=== PATIENT | female | born 1955 | race Caucasian/White ===

== ENCOUNTER 2018-05-13 14:54 | Emergency (ER) | payer MEDICARE, MEDICAID ==
[2018-05-13] MEDS ORDERED: Sodium Chloride 0.9% 10 ML Syringe FLUSH PRN (15:09)
[2018-05-13] MEDS ORDERED: Sodium Chloride 0.9% 1,000 ML IV SCH (15:15)
[2018-05-13] MEDS ORDERED: 50% Dextrose in Water 50 ML Syringe IVPUSH ONE (16:20)
[2018-05-13] MEDS ORDERED: Linezolid 600 MG in Premix Bag 1 BAG IV ONE (17:10)
--- NOTE | 2018-05-13 17:33 | EDM.PDOC ---
ED HPI GENERAL MEDICAL PROBLEM - General Chief Complaint: Fever Stated Complaint: [facility] Time Seen by Provider: 05/13/18 15:03 Source of Information: Reports: Patient, EMS History Limitations: Reports: No Limitations - History of Present Illness INITIAL COMMENTS - FREE TEXT/NARRATIVE: The patient presents with dehydration, fever, generalized weakness and bilateral lower leg ulcers. She says she has not felt good in months. She is seeing doctors in [place]. They have recommended she be admitted to the group home to help with her ulcers and wound care. She has refused. She has gotten worse over the past week. She has not been able to eat and she has not been drinking for a few days. She has a fever or 103. She says this has been a chronic problem for 35 years. She is allergic to multiple antibiotics. She has no chest pain but she has some shortness of breath. She has nausea but no vomiting. She thinks she has a UTI. She has been unable to change her dressings for a couple days. Onset: Gradual Duration: Week(s): Location: Reports: Lower Extremity, Left, Lower Extremity, Right Quality: Reports: Sharp Severity: Moderate Improves with: Reports: None Worsens with: Reports: None Associated Symptoms: Reports: Fever/Chills, Shortness of Breath, Weakness. Denies: Chest Pain, Cough, Headaches, Nausea/Vomiting Generalized Pain Score (Numeric/FACES): 5 - Related Data Allergies Allergy/AdvReac Type Severity Reaction Status Date / Time adhesive Allergy Rash Verified 05/13/18 15:13 alginic acid Allergy Rash Verified 05/13/18 17:55 [From MediHoney (onesimo alginate-honey)] amikacin Allergy Hives Verified 05/13/18 17:55 clindamycin Allergy Rash Verified 05/13/18 15:13 daptomycin Allergy Muscle Verified 05/13/18 17:55 Weakness green pepper Allergy Diarrhea Verified 05/13/18 17:55 honey Allergy Rash Verified 05/13/18 17:55 [From MediHoney (onesimo alginate-honey)] hydroxychloroquine Allergy Other Verified 05/13/18 17:55 [From Plaquenil] lactose Allergy Diarrhea Verified 05/13/18 17:55 latex Allergy Hives Verified 05/13/18 17:55 NSAIDS (Non-Steroidal Allergy Rash Verified 05/13/18 17:55 Anti-Inflamma penicillamine Allergy Blisters Verified 05/13/18 17:55 [From Cuprimine] Penicillins Allergy Rash Verified 05/13/18 15:12 pentoxifylline [From Trental] Allergy Nausea and Verified 05/13/18 17:55 Vomiting sulfamethoxazole Allergy Nausea and Verified 05/13/18 17:55 [From Septra] Vomiting trimethoprim [From Septra] Allergy Nausea and Verified 05/13/18 17:55 Vomiting vancomycin Allergy Rash Verified 05/13/18 15:13 warfarin [From Coumadin] Allergy Itching Verified 05/13/18 17:55 Home Meds: Home Meds Albuterol Sulfate [Proventil Hfa] 2 puff IH DAILY PRN 05/13/18 [History] Cholecalciferol (Vitamin D3) [Vitamin D3] 2,000 unit PO DAILY 05/13/18 [History] Cyanocobalamin (Vitamin B-12) [Vitamin B-12] 15 ml PO DAILY 05/13/18 [History] Folic Acid 80 mg PO DAILY 05/13/18 [History] Hydrocodone/Acetaminophen [Hydrocodon-Acetaminophn 10-325] 1 tab PO Q4H PRN [History] Lactase [Dairy Relief] 27,000 unit PO TID PRN 05/13/18 [History] Loratadine [Claritin] 10 mg PO DAILY 05/13/18 [History] Lutein 20 mg PO DAILY 05/13/18 [History] Magnesium Oxide 400 mg PO DAILY 05/13/18 [History] Methenamine Hippurate 1 gm PO BID 05/13/18 [History] Methenamine Hippurate [Hiprex] 1 gm PO BID 05/13/18 [History] Methotrexate 8 tab PO ASDIRECTED 05/13/18 [History] Nystatin 1 each TOP DAILY 05/13/18 [History] Omeprazole Magnesium [Prilosec Otc] 20 mg PO DAILY 05/13/18 [History] Oxybutynin Chloride 5 mg PO DAILY 05/13/18 [History] Potassium Chloride 20 meq PO BID 05/13/18 [History] Pramipexole [Mirapex] 0.25 mg PO BEDTIME 05/13/18 [History] Prochlorperazine [Compazine] 5 mg PO QID PRN 05/13/18 [History] Teriparatide [Forteo] 20 mcg SUBCUT DAILY 05/13/18 [History] Triamcinolone Acetonide [Kenalog] 1 gm TP TID PRN 05/13/18 [History] traZODone HCl [Trazodone HCl] 50 mg PO BEDTIME 05/13/18 [History] Past Medical History HEENT History: Reports: Other (See Below) Other HEENT History: wears glasses Cardiovascular History: Reports: Hypertension Genitourinary History: Reports: Renal Disease Endocrine/Metabolic History: Reports: Diabetes, Type II Social & Family History - Tobacco Use Smoking Status *Q: Never Smoker - Recreational Drug Use Recreational Drug Use: No ED ROS GENERAL - Review of Systems Review Of Systems: See Below Constitutional: Reports: Fever, Chills, Malaise, Weakness, Fatigue HEENT: Reports: No Symptoms Respiratory: Reports: Shortness of Breath Cardiovascular: Reports: No Symptoms Endocrine: Reports: No Symptoms GI/Abdominal: Reports: Nausea. Denies: Abdominal Pain, Vomiting : Reports: No Symptoms Musculoskeletal: Reports: No Symptoms ED EXAM, SEPSIS - Physical Exam Exam: See Below Exam Limited By: No Limitations General Appearance: Alert, No Apparent Distress Ears: Normal External Exam Nose: Normal Inspection Head: Atraumatic, Normocephalic Neck: Normal Inspection Respiratory/Chest: No Respiratory Distress, Lungs Clear, Normal Breath Sounds Cardiovascular: Regular Rate, Rhythm, No Edema, No Murmur GI/Abdominal Exam: Soft, Non-Tender, No Organomegaly, No Mass Extremities: Other (Severe high grade ulcers to both inner ankles. Good sensation and weak pulses distally) Neurological: Alert, Oriented, No Motor/Sensory Deficits Course - Vital Signs Last Recorded V/S: Last Vital Signs Temp 99.1 F 05/13/18 14:56 Pulse 99 05/13/18 14:56 Resp 16 05/13/18 14:56 BP 90/59 L 05/13/18 14:56 Pulse Ox 98 05/13/18 15:10 - Orders/Labs/Meds Orders: Active Orders 24 hr Category Date Time Status Cardiac Monitoring [RC] . DIRECTED Care 05/13/18 15:10 Active EKG Documentation Completion [RC] STAT Care 05/13/18 15:14 Active Beltran Catheter Insertion [Insert Urinary Catheter] [OM. Care 05/13/18 17:45 Ordered PC] Q24H Implanted Port Access [RC] STAT Care 05/13/18 15:45 Active Oxygen Therapy [RC] PRN Care 05/13/18 15:10 Active Peripheral IV Care [RC] . DIRECTED Care 05/13/18 15:10 Active Urinary Catheter Assessment [RC] ASDIRECTED Care 05/13/18 17:42 Active Chest 1V Frontal [CR] Stat Exams 05/13/18 15:15 Taken CULTURE BLOOD [BC] Stat Lab 05/13/18 15:15 Received CULTURE BLOOD [BC] Stat Lab 05/13/18 15:25 Received CULTURE URINE [RM] Stat Lab 05/13/18 17:07 Received INR,PT,PROTHROMBIN TIME [COAG] Stat Lab 05/13/18 18:20 Received LACTIC ACID [CHEM] Stat Lab 05/13/18 18:00 Received PTT,PARTIAL THROMBOPLSTIN TIME [COAG] Stat Lab 05/13/18 18:20 Received UA W/MICROSCOPIC [URIN] Stat Lab 05/13/18 17:07 Ordered Levofloxacin/Dextrose 5%-Water [Levaquin in D5W 500 MG/ Med 05/13/18 18:01 Active 100 ML] 500 mg Premix Bag 1 bag IV ONETIME Sodium Chloride 0.9% [Normal Saline] 1,000 ml Med 05/13/18 15:15 Active IV .BOLUS Sodium Chloride 0.9% [Saline Flush] Med 05/13/18 15:09 Active 10 ml FLUSH ASDIRECTED PRN Blood Culture x2 Reflex Set [OM.PC] Stat Oth 05/13/18 15:15 Ordered Peripheral IV Insertion Adult [OM.PC] Stat Oth 05/13/18 15:09 Ordered Medication Orders Sodium Chloride (Normal Saline) 1,000 mls @ 1,000 mls/hr IV .BOLUS CARLO Last Admin: 05/13/18 15:31 Dose: 1,000 mls/hr Levofloxacin/Dextrose 500 mg/ (Premix) 100 mls @ 100 mls/hr IV ONETIME ONE Stop: 05/13/18 19:00 Sodium Chloride (Saline Flush) 10 ml FLUSH ASDIRECTED PRN PRN Reason: Keep Vein Open Last Admin: 05/13/18 15:31 Dose: 10 ml Labs: Laboratory Tests 05/13/18 05/13/18 05/13/18 Range/Units 14:59 15:15 15:30 WBC 19.37 H (3.98-10.04) K/mm3 RBC 3.02 L (3.98-5.22) M/mm3 Hgb 8.7 L (11.2-15.7) gm/L Hct 27.1 L (34.1-44.9) % MCV 89.7 (79.4-94.8) fl MCH 28.8 (25.6-32.2) pg MCHC 32.1 L (32.2-35.5) g/dl RDW Std Deviation 52.5 H (36.4-46.3) fL Plt Count 274 (182-369) K/mm3 MPV 11.0 (9.4-12.3) fl Neut % (Auto) 81.2 H (34.0-71.1) % Lymph % (Auto) 13.5 L (19.3-51.7) % [place] % (Auto) 4.8 (4.7-12.5) % Eos % (Auto) 0.1 L (0.7-5.8) Baso % (Auto) 0.1 (0.1-1.2) % Neut # (Auto) 15.73 H (1.56-6.13) K/mm3 Lymph # (Auto) 2.62 (1.18-3.74) K/mm3 [place] # (Auto) 0.93 H (0.24-0.36) K/mm3 Eos # (Auto) 0.01 L (0.04-0.36) K/mm3 Baso # (Auto) 0.02 (0.01-0.08) K/mm3 Sodium 137 (136-145) mEq/L Potassium 3.8 (3.5-5.1) mEq/L Chloride 106 (98-107) mEq/L Carbon Dioxide 21 (21-32) mEq/L Anion Gap 13.8 (5-15) BUN 15 (7-18) mg/dL Creatinine 1.4 H (0.55-1.02) mg/dL Est Cr Clr Drug Dosing 37.01 mL/min Estimated GFR (MDRD) 38 (>60) mL/min BUN/Creatinine Ratio 10.7 L (14-18) Glucose 72 L (80-115) mg/dL POC Glucose 73 L (80-115) mg/dL Calcium 7.6 L (8.5-10.1) mg/dL Magnesium 1.5 L (1.8-2.4) mg/dl Total Bilirubin 4.1 H (0.2-1.0) mg/dL AST 157 H (15-37) U/L ALT 46 (14-59) U/L Alkaline Phosphatase 189 H (46-116) U/L Troponin I < 0.017 (0.00-0.056) ng/mL NT-Pro-B Natriuret Pep (0-125) pg/mL Total Protein 5.1 L (6.4-8.2) g/dl Albumin 1.3 L (3.4-5.0) g/dl Globulin 3.8 gm/dL Albumin/Globulin Ratio 0.3 L (1-2) Urine Color (Yellow) Urine Appearance (Clear) Urine pH (5.0-8.0) Ur Specific Stella (1.005-1.030) Urine Protein (Negative) Urine Glucose (UA) (Negative) Urine Ketones (Negative) Urine Occult Blood (Negative) Urine Nitrite (Negative) Urine Bilirubin (Negative) Urine Urobilinogen (0.2-1.0) Ur Leukocyte Esterase (Negative) Urine RBC (0-5) /hpf Urine WBC (0-5) /hpf Ur Epithelial Cells (0-5) /hpf Urine Bacteria (FEW) /hpf Urine Mucus (FEW) /hpf 05/13/18 05/13/18 Range/Units 15:30 17:07 WBC (3.98-10.04) K/mm3 RBC (3.98-5.22) M/mm3 Hgb (11.2-15.7) gm/L Hct (34.1-44.9) % MCV (79.4-94.8) fl MCH (25.6-32.2) pg MCHC (32.2-35.5) g/dl RDW Std Deviation (36.4-46.3) fL Plt Count (182-369) K/mm3 MPV (9.4-12.3) fl Neut % (Auto) (34.0-71.1) % Lymph % (Auto) (19.3-51.7) % [place] % (Auto) (4.7-12.5) % Eos % (Auto) (0.7-5.8) Baso % (Auto) (0.1-1.2) % Neut # (Auto) (1.56-6.13) K/mm3 Lymph # (Auto) (1.18-3.74) K/mm3 [place] # (Auto) (0.24-0.36) K/mm3 Eos # (Auto) (0.04-0.36) K/mm3 Baso # (Auto) (0.01-0.08) K/mm3 Sodium (136-145) mEq/L Potassium (3.5-5.1) mEq/L Chloride (98-107) mEq/L Carbon Dioxide (21-32) mEq/L Anion Gap (5-15) BUN (7-18) mg/dL Creatinine (0.55-1.02) mg/dL Est Cr Clr Drug Dosing mL/min Estimated GFR (MDRD) (>60) mL/min BUN/Creatinine Ratio (14-18) Glucose (80-115) mg/dL POC Glucose (80-115) mg/dL Calcium (8.5-10.1) mg/dL Magnesium (1.8-2.4) mg/dl Total Bilirubin (0.2-1.0) mg/dL AST (15-37) U/L ALT (14-59) U/L Alkaline Phosphatase (46-116) U/L Troponin I (0.00-0.056) ng/mL NT-Pro-B Natriuret Pep 1264 H (0-125) pg/mL Total Protein (6.4-8.2) g/dl Albumin (3.4-5.0) g/dl Globulin gm/dL Albumin/Globulin Ratio (1-2) Urine Color [place] H (Yellow) Urine Appearance Clear (Clear) Urine pH 6.0 (5.0-8.0) Ur Specific Stella 1.020 (1.005-1.030) Urine Protein 1+ H (Negative) Urine Glucose (UA) Negative (Negative) Urine Ketones Negative (Negative) Urine Occult Blood 1+ H (Negative) Urine Nitrite Negative (Negative) Urine Bilirubin 1+ H (Negative) Urine Urobilinogen 1.0 (0.2-1.0) Ur Leukocyte Esterase 1+ H (Negative) Urine RBC 5-10 H (0-5) /hpf Urine WBC 40-50 H (0-5) /hpf Ur Epithelial Cells 0-5 (0-5) /hpf Urine Bacteria Many H (FEW) /hpf Urine Mucus Not seen (FEW) /hpf Meds: Medications Generic Name Dose Route Start Last Admin Trade Name Freyonatan PRN Reason Stop Dose Admin Sodium Chloride 1,000 mls @ 1,000 mls/hr 05/13/18 15:15 05/13/18 15:31 Normal Saline IV 1,000 mls/hr .BOLUS CARLO Administration Levofloxacin/Dextrose 500 mg/ 100 mls @ 100 mls/hr 05/13/18 18:01 Premix IV 05/13/18 19:00 ONETIME ONE Sodium Chloride 10 ml 05/13/18 15:09 05/13/18 15:31 Saline Flush FLUSH 10 ml ASDIRECTED PRN Administration Keep Vein Open Discontinued Medications Generic Name Dose Route Start Last Admin Trade Name Freq PRN Reason Stop Dose Admin Dextrose/Water 50 ml 05/13/18 16:20 Dextrose 50% In Water IVPUSH 05/13/18 16:21 ONETIME ONE Linezolid 600 mg/ Premix 300 mls @ 300 mls/hr 05/13/18 17:10 05/13/18 18:06 IV 05/13/18 18:09 300 mls/hr ONETIME ONE Administration - Re-Assessments/Exams Free Text/Narrative Re-Assessment/Exam: 05/13/18 17:35 I ordered an IV NS 30ml/kg bolus, labs, CXR, blood cultures, UA and urine cultures. 05/13/18 17:37 Her CXR looks good. Her WBC was elevated at 19.37. Her Hgb was low at 8.7. Platelets were normal at 274. Her potassium and sodium were normal. Her glucose was low at 72. I did give her some D50. Her calcium was low at 7.6. Her magnesium was low at 1.5. Her total bili was elevated at 4.1 with an elevated AST at 157 and elevated alk phos at 189. Her troponin was negative. Her BNP was elevated at 1264. Her UA shows a UTI. I have urine cultures and blood cultures. She have sever ulcers in both inner ankles. I ordered zyvox 600mg IV. She does not think she is allergic to that antibiotic. We did request records from [facility] but they have not arrived yet. I feel the patient needs to be admitted to [facility] in [place]. She will need multi specialty care. 05/13/18 18:[address] Baig and he accepted the patient. Departure - Departure Time of Disposition: 18:30 Disposition: DC/Tfer to Acute Hospital 02 Condition: Poor Clinical Impression: Hypocalcemia, Hypomagnesemia, Renal insufficiency Sepsis Qualifiers: Sepsis type: sepsis due to unspecified organism Qualified Code(s): A41.9 - Sepsis, unspecified organism Ulcers of both lower extremities Qualifiers: Non-pressure ulcer stage: unspecified non-pressure ulcer stage Qualified Code(s ): L97.919 - Non-pressure chronic ulcer of unspecified part of right lower leg with unspecified severity UTI (urinary tract infection) Qualifiers: Urinary tract infection type: site unspecified Hematuria presence: without hematuria Qualified Code(s): N39.0 - Urinary tract infection, site not specified Anemia Qualifiers: Anemia type: other cause Other causes of anemia: other cause, not classified Qualified Code(s): D64.89 - Other specified anemias Decubital ulcer Qualifiers: Pressure injury location: buttock Pressure injury stage: unspecified pressure injury stage Laterality: unspecified laterality Qualified Code(s): L89.309 - Pressure ulcer of unspecified buttock, unspecified stage - Discharge Information Referrals: Shabnam Ji MD [Primary Care Provider] - Forms: ED Department Discharge - My Orders Last 24 Hours: My Active Orders 05/13/18 15:09 Sodium Chloride 0.9% [Saline Flush] 10 ml FLUSH ASDIRECTED PRN Peripheral IV Insertion Adult [OM.PC] Stat 05/13/18 15:10 Cardiac Monitoring [RC] . DIRECTED Oxygen Therapy [RC] PRN Peripheral IV Care [RC] . DIRECTED 05/13/18 15:14 EKG Documentation Completion [RC] STAT 05/13/18 15:15 Chest 1V Frontal [CR] Stat CULTURE BLOOD [BC] Stat Sodium Chloride 0.9% [Normal Saline] 1,000 ml IV .BOLUS Blood Culture x2 Reflex Set [OM.PC] Stat 05/13/18 15:25 CULTURE BLOOD [BC] Stat 05/13/18 15:45 Implanted Port Access [RC] STAT 05/13/18 17:07 CULTURE URINE [RM] Stat UA W/MICROSCOPIC [URIN] Stat 05/13/18 17:42 Urinary Catheter Assessment [RC] ASDIRECTED 05/13/18 17:45 Beltran Catheter Insertion [Insert Urinary Catheter] [OM.PC] Q24H 05/13/18 18:00 LACTIC ACID [CHEM] Stat 05/13/18 18:01 Levofloxacin/Dextrose 5%-Water [Levaquin in D5W 500 MG/100 ML] 500 mg Premix Bag 1 bag IV ONETIME 05/13/18 18:20 INR,PT,PROTHROMBIN TIME [COAG] Stat PTT,PARTIAL THROMBOPLSTIN TIME [COAG] Stat - Assessment/Plan Last 24 Hours: My Active Orders 05/13/18 15:09 Sodium Chloride 0.9% [Saline Flush] 10 ml FLUSH ASDIRECTED PRN Peripheral IV Insertion Adult [OM.PC] Stat 05/13/18 15:10 Cardiac Monitoring [RC] . DIRECTED Oxygen Therapy [RC] PRN Peripheral IV Care [RC] . DIRECTED 05/13/18 15:14 EKG Documentation Completion [RC] STAT 05/13/18 15:15 Chest 1V Frontal [CR] Stat CULTURE BLOOD [BC] Stat Sodium Chloride 0.9% [Normal Saline] 1,000 ml IV .BOLUS Blood Culture x2 Reflex Set [OM.PC] Stat 05/13/18 15:25 CULTURE BLOOD [BC] Stat 05/13/18 15:45 Implanted Port Access [RC] STAT 05/13/18 17:07 CULTURE URINE [RM] Stat UA W/MICROSCOPIC [URIN] Stat 05/13/18 17:42 Urinary Catheter Assessment [RC] ASDIRECTED 05/13/18 17:45 Beltran Catheter Insertion [Insert Urinary Catheter] [OM.PC] Q24H 05/13/18 18:00 LACTIC ACID [CHEM] Stat 05/13/18 18:01 Levofloxacin/Dextrose 5%-Water [Levaquin in D5W 500 MG/100 ML] 500 mg Premix Bag 1 bag IV ONETIME 05/13/18 18:20 INR,PT,PROTHROMBIN TIME [COAG] Stat PTT,PARTIAL THROMBOPLSTIN TIME [COAG] Stat
[2018-05-13] MEDS ORDERED: Levofloxacin/Dextrose 5%-Water 500 MG in Premix Bag 1 BAG IV ONE (18:01)
--- NOTE | 2018-05-15 08:35 | CR ---
Chest: Portable view of the chest was obtained. Comparison: No prior chest x-ray. Heart size and mediastinum are normal. Azygos lobe is incidentally noted. Lungs are clear without acute parenchymal change. Left-sided infusion port is seen. Chronic rotator cuff tears are noted within both shoulders. Impression: 1. Incidental findings. Nothing acute is appreciated on portable chest x-ray. Diagnostic code #2
== END 2018-05-13 19:20 ==
LOC: JD.ED 14:54
DX: A41.9 Sepsis, unspecified organism (principal); L97.919 Non-pressure chronic ulcer of unspecified part of right lower leg with unspecified severity; L97.929 Non-pressure chronic ulcer of unspecified part of left lower leg with unspecified severity; E11.622 Type 2 diabetes mellitus with other skin ulcer; N39.0 Urinary tract infection, site not specified; L89.309 Pressure ulcer of unspecified buttock, unspecified stage; D64.89 Other specified anemias; E83.51 Hypocalcemia; E83.42 Hypomagnesemia; N28.9 Disorder of kidney and ureter, unspecified; I10 Essential (primary) hypertension; Z79.899 Other long term (current) drug therapy; Z91.09 Other allergy status, other than to drugs and biological substances; Z88.0 Allergy status to penicillin; Z88.1 Allergy status to other antibiotic agents; Z91.040 Latex allergy status; Z88.2 Allergy status to sulfonamides; Z88.8 Allergy status to other drugs, medicaments and biological substances
CPT/HCPCS: 36415; 51702; 71045; 80053; 81001; 82962; 83605; 83735; 83880; 84484; 85025; 85610; 85730; 87040; 87086; 93005; 96360; 96361; 96365; 96375; 99285; J1956; J2020; J7040; J7050; 87088; 87186

== ENCOUNTER 2018-09-17 17:04 | Emergency (ER) | payer MEDICARE, MEDICAID ==
[2018-09-17] MEDS ORDERED: Acetaminophen/oxyCODONE 325-5 MG Tab PO ONE (20:11)
[2018-09-17] MEDS ORDERED: Levofloxacin/Dextrose 5%-Water 500 MG in Premix Bag 1 BAG IV ONE (20:21)
--- NOTE | 2018-09-18 03:25 | ER ---
REASON FOR EMERGENCY ROOM VISIT: Progressive weakness and chronic venous stasis ulcers bilaterally. HISTORY OF PRESENT ILLNESS: This 63-year-old woman was brought here by ambulance from [place], [place]. She states that she has been struggling with dressing changes and wound cares to the chronic venous stasis ulcers that she has involving both lower legs. She states that she has been getting more and more weak in recent days. She has had a history of problems off and on with venous stasis ulcers that she states goes back as far as 35 years. Most recently, last summer, she was hospitalized in [place] for 12 days for sepsis and control of localized infection related to the venous stasis ulcers. She was seen by Infectious Disease and wound cares were instituted, but she did require parenteral antibiotics at that time. After a 12-day stay at which time she was seen, she was evaluated by Infectious Disease as well as Surgery. She was transferred to a snf for continued cares and wound management until early July. Subsequent to that, she was discharged home and she states she has been seen by a visiting nurse at her home in [place], [place]. She does live alone. She also has a history of decubitus ulcers. The patient denies any cough, shortness of breath, chest pain, nausea, vomiting, diarrhea, or constipation. PAST MEDICAL HISTORY: Significant for a gastric bypass in 2001 and rheumatoid arthritis. Other past medical history was reviewed. Please see electronic medical record. SOCIAL HISTORY: She is a nonsmoker. Denies any drug use or alcohol use. She lives alone in [place], [place]. PHYSICAL EXAMINATION: GENERAL: She is pale appearing, but she is alert and in no acute distress. VITAL SIGNS: Her blood pressure is 92/64, pulse is 73, respiratory rate is 18, O2 sats 96% on room air. HEENT: She is pale as mentioned above. No conjunctivitis is noted. No scleral icterus is noted. CHEST: Clear to auscultation. CARDIAC: Regular rate, without murmur. ABDOMEN: Soft and nontender. EXTREMITIES: She has extensive venous stasis ulcerations about both ankles on the right side. She is ulcerated all the way from just above the heel to approximately 15 or 20 cm above the medial malleolus. This involves almost the entire medial aspect of the ankle. She also has a 4 x 3 cm ulcer laterally posterior to the lateral malleolus. On the left ankle, almost the entire medial aspect again is involved with granulating venous stasis ulcers. She has a smaller 2 x 3 cm ulcer anterior to this one. The dressings that she had in place were very bulky and poorly applied and were very foul smelling. I suspect she has significant localized infection involving these and probably some early cellulitis. There is some increased redness, but I do not know if this is chronic and whether or not cellulitis is present at this time clinically. I cannot feel ankle ulcers because of the chronic edema. She does have popliteal pulses. On examination of her perineum, she has some very shallow early decubitus ulcers in a radial fashion approximately 4 to 6 inches away from the anus in a circular arrangement. She is at high risk for breakdown of these areas further. LABORATORY DATA: Her WBCs are elevated at 14,800. She has a hemoglobin of 8.7 (unchanged from March). Her creatinine is 1.1. Her CRP is 2.6. IMPRESSION: Possible early sepsis and nonhealing poorly managed venous stasis ulcers as described above. PLAN: She needs to have these wounds cleaned up and I think she possibly has some early sepsis ongoing. Would benefit at least from initiation of IV antibiotics. Blood cultures were obtained and she was started on 1 dose of levofloxacin. I did contact the patient's primary care provider in [place], Dr. Shabnam Ji, who is a [facility] physician. I therefore spoke with the hospitalist, Dr. Beaulieu. We discussed the patient. He agreed to take her in transfer. Hopefully, after a few days, she can be placed in a facility such as [facility], which will enable long-term care hospitalization. It is obvious to me that she is not managing adequately at home under these circumstances. This was discussed with the patient. She understands and agrees with this plan. MMODAL /[id number]
== END 2018-09-17 21:42 ==
LOC: JD.ED 17:04
DX: I83.023 Varicose veins of left lower extremity with ulcer of ankle (principal)
CPT/HCPCS: 36415; 80053; 85007; 85027; 86140; 87040; 96365; 99284; A9270; J1956

== ENCOUNTER 2019-12-06 12:21 | Inpatient (IN) | payer OTHER, MEDICARE, MEDICAID ==
[2019-12-06] MEDS ORDERED: Sodium Chloride 0.9% 10 ML Syringe FLUSH PRN (12:50)
[2019-12-06] MEDS ORDERED: HYDROmorphone 0.5 MG/0.5 ML Syringe IVPUSH ONE ×2 (12:52→16:29)
[2019-12-06] MEDS: Sodium Chloride 0.9% 1,000 ML IV SCH ×2 (13:46→20:50)
--- NOTE | 2019-12-06 14:28 | EDM.PDOC ---
ED HPI GENERAL MEDICAL PROBLEM - General Chief Complaint: Back Pain or Injury Stated Complaint: [facility] Time Seen by Provider: 12/06/19 12:31 Source of Information: Reports: Patient History Limitations: Reports: No Limitations - History of Present Illness INITIAL COMMENTS - FREE TEXT/NARRATIVE: Patient is a 64-year-old female brought in by [facility] with complaints of right sided back pain that began last night. Pain is to her right mid and upper back. She was seen at [place] today. Advised to go to the chiropractor, however she went home to take a nap. Upon waking she was unable to get out of bed. Patient states she "threw her back out ". She has some pain and numbness in her right arm as well. Patient does have chronic severe rheumatoid arthritis and gets around with a wheelchair. She took the bus to [place] yesterday in the wheelchair and she feels that sitting for the extended period of time in the wheelchair it is what is caused her back pain. She is incontinent of urine and self caths for urinary retention. Patient has chronic stasis ulcers to the medial aspect of both ankles. She states that she had [facility] services up until last month, however she now lives alone and does not have any services. She manages her stasis ulcers herself at home. She denies any fever, chills, nausea, vomiting, or diarrhea. Right Lower Back Pain Score (Numeric/FACES): 9 - Related Data Allergies Allergy/AdvReac Type Severity Reaction Status Date / Time adhesive Allergy Rash Verified 12/06/19 12:33 alginic acid Allergy Rash Verified 12/06/19 12:33 [From MediHoney (onesimo alginate-honey)] amikacin Allergy Hives Verified 12/06/19 12:33 clindamycin Allergy Rash Verified 12/06/19 12:33 daptomycin Allergy Muscle Verified 12/06/19 12:33 Weakness green pepper Allergy Diarrhea Verified 12/06/19 12:33 honey Allergy Rash Verified 12/06/19 12:33 [From MediHoney (onesimo alginate-honey)] hydroxychloroquine Allergy Other Verified 12/06/19 12:33 [From Plaquenil] lactose Allergy Diarrhea Verified 12/06/19 12:33 latex Allergy Hives Verified 12/06/19 12:33 NSAIDS (Non-Steroidal Allergy Rash Verified 12/06/19 12:33 Anti-Inflamma penicillamine Allergy Blisters Verified 12/06/19 12:33 [From Cuprimine] Penicillins Allergy Rash Verified 12/06/19 12:33 pentoxifylline [From Trental] Allergy Nausea and Verified 12/06/19 12:33 Vomiting sulfamethoxazole Allergy Nausea and Verified 12/06/19 12:33 [From Septra] Vomiting trimethoprim [From Septra] Allergy Nausea and Verified 12/06/19 12:33 Vomiting vancomycin Allergy Rash Verified 12/06/19 12:33 warfarin [From Coumadin] Allergy Itching Verified 12/06/19 12:33 Home Meds: Home Meds Cholecalciferol (Vitamin D3) [Vitamin D3] 2,000 unit PO DAILY 05/13/18 [History] Lutein 40 mg PO DAILY 05/13/18 [History] Methenamine Hippurate [Hiprex] 1 gm PO BID 05/13/18 [History] traZODone HCl [Trazodone HCl] 50 mg PO BEDTIME 05/13/18 [History] Acetaminophen [Tylenol] 650 mg PO Q4HR 12/06/19 [History] Alfuzosin HCl [Alfuzosin HCl ER] 10 mg PO DAILY 12/06/19 [History] Ascorbic Acid 500 mg PO BID 12/06/19 [History] Calcium Carbonate 500 mg PO Q4HR PRN 12/06/19 [History] Calcium Carbonate/Vitamin D3 [Calcium Carbonate/Vitamin D 600 MG-200 Unit] 1 tab PO BID 12/06/19 [History] Cetirizine [ZyrTEC] 10 mg PO DAILY 12/06/19 [History] Cholestyramine/Sucrose [Cholestyramine] 4 g PO DAILY 12/06/19 [History] Clobetasol Propionate [Temovate 0.05% Oint] 1 applic TOP BID PRN 12/06/19 [ History] Cranberry Fruit Concentrate [Cranberry] 450 mg PO BID 12/06/19 [History] Diclofenac/Hyaluronate/Niacin [Diclofen 3%-Hyaluron 2%-Niac4%] 2 gm TOP BID PRN 12/06/19 [History] Ferrous Sulfate 325 mg PO DAILY 12/06/19 [History] Folic Acid 1 mg PO DAILY 12/06/19 [History] Hydrocortisone [Hydrocortisone 1% Crm] 1 applic TOP TID PRN 12/06/19 [History] Lidocaine 5% [Lidoderm 5%] 1 patch TOP DAILY 12/06/19 [History] Loperamide [Imodium AD] 2 mg PO DAILY PRN 12/06/19 [History] Lycopene 10 mg PO DAILY 12/06/19 [History] Magnesium Oxide 400 mg PO BID 12/06/19 [History] Methotrexate Sodium [Methotrexate] 17.5 mg PO ASDIRECTED 12/06/19 [History] Multivitamin [Multivitamins] 1 tab PO DAILY 12/06/19 [History] Non-Formulary Medication [NF Drug] 2 scoop PO DAILY 12/06/19 [History] Nystatin [Nystatin Crm] 1 applic TOP BID PRN 12/06/19 [History] Nystatin [Nystop] 1 applic TOP BID PRN 12/06/19 [History] Ondansetron [Zofran ODT] 1 tab PO Q6HR PRN 12/06/19 [History] Pantoprazole Sodium [Protonix] 40 mg PO DAILY 12/06/19 [History] Sodium Hypochlorite [Anasept] 1 inch TOP DAILY 12/06/19 [History] Zoledronic Acid in Water [Reclast] 5 mg .ROUTE ASDIRECTED 12/06/19 [History] diphenhydrAMINE [Benadryl] 25 mg PO Q4HR PRN 12/06/19 [History] hydrOXYzine HCL [Hydroxyzine HCl] 10 mg PO TID 12/06/19 [History] oxyCODONE 5 mg PO QID 12/06/19 [History] predniSONE [Prednisone] 6 mg PO DAILY 12/06/19 [History] rOPINIRole [Requip] 0.5 mg PO BEDTIME 12/06/19 [History] Past Medical History HEENT History: Reports: Other (See Below) Other HEENT History: wears glasses Cardiovascular History: Reports: Hypertension Genitourinary History: Reports: Renal Disease Endocrine/Metabolic History: Reports: Diabetes, Type II Social & Family History - Tobacco Use Smoking Status *Q: Never Smoker - Caffeine Use Caffeine Use: Reports: None - Recreational Drug Use Recreational Drug Use: No ED ROS GENERAL - Review of Systems Review Of Systems: Comprehensive ROS is negative, except as noted in HPI. ED EXAM, UPPER BACK/NECK PAIN - Physical Exam Exam: See Below Exam Limited By: No Limitations General Appearance: Alert, WD/WN, Mild Distress Cardiovascular/Respiratory: Regular Rate, Rhythm, No M/R/G, Normal Peripheral Pulses, No JVD, Normal Breath Sounds, No Respiratory Distress GI/Abdominal: Normal Bowel Sounds, Soft, Non-Tender, No Organomegaly, No Distention, No Abnormal Bruit, No Mass Back Exam: Other (Tenderness to the C8-T2 vertebrae as well as the right paraspinous muscles. Tenderness to T8-T11 tenderness to the paraspinous muscles to the right lateral aspect of T8-T11. There is noted muscle spasm in this region.) Extremities: Other (Pain and limited range of motion to the right arm. Pain is worse from the elbow to the hand. There is a 15.3 x 9.8 cm stasis ulcer to the right medial ankle, 5.5 cm x 2.8 cm to the right lateral ankle, and a 13 cm x 10.3 cm to the left medial ankle. Area surrounding the stasis ulcers is red and inflamed. Discharge from the ulcers is foul-smelling.) Neurologic: vocational education teacher II-XII nml As Tested, No Motor/Sensory Deficits, Alert, Normal Mood/Affect, Oriented x 3 Skin Exam: Warm/Dry Course - Vital Signs Last Recorded V/S: Last Vital Signs Temp 99.1 F 12/06/19 17:37 Pulse 106 H 12/06/19 17:37 Resp 19 12/06/19 17:37 BP 132/64 12/06/19 17:37 Pulse Ox 93 L 12/06/19 17:37 - Orders/Labs/Meds Orders: Active Orders 24 hr Category Date Time Status CULTURE ANAEROBIC + SMEAR [RM] Stat Lab 12/06/19 16:47 Ordered CULTURE BLOOD [BC] Stat Lab 12/06/19 13:23 Received CULTURE BLOOD [BC] Stat Lab 12/06/19 13:40 Received Sodium Chloride 0.9% [Normal Saline] 1,000 ml Med 12/06/19 13:00 Active IV ASDIRECTED Sodium Chloride 0.9% [Saline Flush] Med 12/06/19 12:50 Active 10 ml FLUSH ASDIRECTED PRN Blood Culture x2 Reflex Set [OM.PC] Stat Oth 12/06/19 12:50 Ordered Peripheral IV Insertion Adult [OM.PC] Stat Oth 12/06/19 12:50 Ordered Medication Orders Acetaminophen (Tylenol) 650 mg PO Q4H PRN PRN Reason: Pain (Mild 1-3)/fever Ascorbic Acid (Vitamin C) 500 mg PO BID [facility] Calcium Carbonate (Calcium Carbonate/Vitamin D 600 Mg-200 Unit) 1 tab PO BID [facility] Cholestyramine Resin (Cholestyramine Packet) 4 gm PO DAILY [facility] Diphenhydramine HCl (Benadryl) 25 mg PO Q4HR PRN PRN Reason: Other Enoxaparin Sodium (Lovenox) 40 mg SUBCUT DAILY [facility] Ferrous Sulfate (Ferrous Sulfate) 324 mg PO DAILY [facility] Folic Acid (Folic Acid) 1 mg PO DAILY [facility] Hydromorphone HCl (Dilaudid) 0.5 mg IVPUSH Q2H PRN PRN Reason: Pain (severe 7-10) Hydroxyzine HCl (Atarax) 10 mg PO TID [facility] Sodium Chloride (Normal Saline) 1,000 mls @ 150 mls/hr IV ASDIRECTED [facility] Last Admin: 12/06/19 13:46 Dose: 150 mls/hr Loperamide HCl (Imodium) 2 mg PO DAILY PRN PRN Reason: Diarrhea Nystatin (Nystatin Crm) gm TOP BID PRN PRN Reason: Itching Nystatin (Nystop) gm TOP BID PRN PRN Reason: Itching Ondansetron HCl (Zofran Odt) 4 mg PO Q6HR PRN PRN Reason: Nausea/Vomiting Oxycodone HCl (Oxycodone) 5 mg PO QID PRN PRN Reason: Pain Pantoprazole Sodium (Protonix) 40 mg PO ACBREAKFAST [facility] Prednisone (Prednisone) 20 mg PO WITHBREAKFAST [facility] Ropinirole HCl (Requip) 0.5 mg PO BEDTIME [facility] Sodium Chloride (Saline Flush) 10 ml FLUSH ASDIRECTED PRN PRN Reason: Keep Vein Open Last Admin: 12/06/19 13:53 Dose: 10 ml Trazodone HCl (Trazodone) 50 mg PO BEDTIME [facility] Labs: Laboratory Tests 12/06/19 12/06/19 12/06/19 Range/Units 13:23 13:23 13:23 WBC 9.16 (3.98-10.04) K/mm3 RBC 3.77 L (3.98-5.22) M/mm3 Hgb 11.5 D (11.2-15.7) gm/dl Hct 37.0 (34.1-44.9) % MCV 98.1 H D (79.4-94.8) fl MCH 30.5 (25.6-32.2) pg MCHC 31.1 L (32.2-35.5) g/dl RDW Std Deviation 64.2 H (36.4-46.3) fL Plt Count 360 (182-369) K/mm3 MPV 8.8 L (9.4-12.3) fl Neut % (Auto) 74.5 H (34.0-71.1) % Lymph % (Auto) 15.6 L (19.3-51.7) % [place] % (Auto) 8.2 (4.7-12.5) % Eos % (Auto) 1.2 (0.7-5.8) Baso % (Auto) 0.2 (0.1-1.2) % Neut # (Auto) 6.82 H (1.56-6.13) K/mm3 Lymph # (Auto) 1.43 (1.18-3.74) K/mm3 [place] # (Auto) 0.75 H (0.24-0.36) K/mm3 Eos # (Auto) 0.11 (0.04-0.36) K/mm3 Baso # (Auto) 0.02 (0.01-0.08) K/mm3 Sodium 144 (136-145) mEq/L Potassium 4.4 (3.5-5.1) mEq/L Chloride 110 H (98-107) mEq/L Carbon Dioxide 21 (21-32) mEq/L Anion Gap 17.4 H (5-15) BUN 24 H (7-18) mg/dL Creatinine 1.1 H (0.55-1.02) mg/dL Est Cr Clr Drug Dosing 46.49 mL/min Estimated GFR (MDRD) 50 (>60) mL/min BUN/Creatinine Ratio 21.8 H (14-18) Glucose 89 (80-115) mg/dL Lactic Acid 0.9 (0.4-2.0) mmol/L Calcium 7.9 L (8.5-10.1) mg/dL Total Bilirubin 1.0 (0.2-1.0) mg/dL AST 18 (15-37) U/L ALT 17 (14-59) U/L Alkaline Phosphatase 79 (46-116) U/L C-Reactive Protein 5.1 H* (<1.0) mg/dL Total Protein 6.8 (6.4-8.2) g/dl Albumin 2.3 L (3.4-5.0) g/dl Globulin 4.5 gm/dL Albumin/Globulin Ratio 0.5 L (1-2) Urine Color (Yellow) Urine Appearance (Clear) Urine pH (5.0-8.0) Ur Specific [place] (1.005-1.030) Urine Protein (Negative) Urine Glucose (UA) (Negative) Urine Ketones (Negative) Urine Occult Blood (Negative) Urine Nitrite (Negative) Urine Bilirubin (Negative) Urine Urobilinogen (0.2-1.0) Ur Leukocyte Esterase (Negative) Urine RBC (0-5) /hpf Urine WBC (0-5) /hpf Ur Squamous Epith Cells (0-5) /hpf Urine Bacteria (FEW) /hpf Urine Mucus (FEW) /hpf 12/05/ Range/Units 15:44 WBC (3.98-10.04) K/mm3 RBC (3.98-5.22) M/mm3 Hgb (11.2-15.7) gm/dl Hct (34.1-44.9) % MCV (79.4-94.8) fl MCH (25.6-32.2) pg MCHC (32.2-35.5) g/dl RDW Std Deviation (36.4-46.3) fL Plt Count (182-369) K/mm3 MPV (9.4-12.3) fl Neut % (Auto) (34.0-71.1) % Lymph % (Auto) (19.3-51.7) % [place] % (Auto) (4.7-12.5) % Eos % (Auto) (0.7-5.8) Baso % (Auto) (0.1-1.2) % Neut # (Auto) (1.56-6.13) K/mm3 Lymph # (Auto) (1.18-3.74) K/mm3 [place] # (Auto) (0.24-0.36) K/mm3 Eos # (Auto) (0.04-0.36) K/mm3 Baso # (Auto) (0.01-0.08) K/mm3 Sodium (136-145) mEq/L Potassium (3.5-5.1) mEq/L Chloride (98-107) mEq/L Carbon Dioxide (21-32) mEq/L Anion Gap (5-15) BUN (7-18) mg/dL Creatinine (0.55-1.02) mg/dL Est Cr Clr Drug Dosing mL/min Estimated GFR (MDRD) (>60) mL/min BUN/Creatinine Ratio (14-18) Glucose (80-115) mg/dL Lactic Acid (0.4-2.0) mmol/L Calcium (8.5-10.1) mg/dL Total Bilirubin (0.2-1.0) mg/dL AST (15-37) U/L ALT (14-59) U/L Alkaline Phosphatase (46-116) U/L C-Reactive Protein (<1.0) mg/dL Total Protein (6.4-8.2) g/dl Albumin (3.4-5.0) g/dl Globulin gm/dL Albumin/Globulin Ratio (1-2) Urine Color Yellow (Yellow) Urine Appearance Slt cloudy H (Clear) Urine pH 6.0 (5.0-8.0) Ur Specific [place] 1.025 (1.005-1.030) Urine Protein Trace H (Negative) Urine Glucose (UA) Negative (Negative) Urine Ketones Negative (Negative) Urine Occult Blood Trace-intact H (Negative) Urine Nitrite Positive H (Negative) Urine Bilirubin Negative (Negative) Urine Urobilinogen 0.2 (0.2-1.0) Ur Leukocyte Esterase 1+ H (Negative) Urine RBC 5-10 H (0-5) /hpf Urine WBC 50-75 H (0-5) /hpf Ur Squamous Epith Cells 0-5 (0-5) /hpf Urine Bacteria Many H (FEW) /hpf Urine Mucus Not seen (FEW) /hpf Meds: Medications Generic Name Dose Route Start Last Admin Trade Name Freq PRN Reason Stop Dose Admin Acetaminophen 650 mg 12/06/19 18:42 Tylenol PO Q4H PRN Pain (Mild 1-3)/fever Ascorbic Acid 500 mg 12/06/19 21:00 Vitamin C PO BID CARLO Calcium Carbonate 1 tab 03/19/20 21:00 Calcium Carbonate/Vitamin D 600 Mg-200 Unit PO BID [facility] Cholestyramine Resin 4 gm 12/07/19 09:00 Cholestyramine Packet PO DAILY [facility] Diphenhydramine HCl 25 mg 12/06/19 18:35 Benadryl PO Q4HR PRN Other Enoxaparin Sodium 40 mg 12/07/19 09:00 Lovenox SUBCUT DAILY [facility] Ferrous Sulfate 324 mg 12/07/19 09:00 Ferrous Sulfate PO DAILY [facility] Folic Acid 1 mg 12/07/19 09:00 Folic Acid PO DAILY [facility] Hydromorphone HCl 0.5 mg 12/06/19 18:42 Dilaudid IVPUSH Q2H PRN Pain (severe 7-10) Hydroxyzine HCl 10 mg 12/06/19 21:00 Atarax PO TID [facility] Sodium Chloride 1,000 mls @ 150 mls/hr 12/06/19 13:00 12/06/19 13:46 Normal Saline IV 150 mls/hr ASDIRECTED [facility] Administration Loperamide HCl 2 mg 12/06/19 18:56 Imodium PO DAILY PRN Diarrhea Nystatin gm 12/06/19 18:35 Nystatin Crm TOP BID PRN Itching Nystatin gm 12/06/19 18:35 Nystop TOP BID PRN Itching Ondansetron HCl 4 mg 12/06/19 18:35 Zofran Odt PO Q6HR PRN Nausea/Vomiting Oxycodone HCl 5 mg 12/06/19 18:35 Oxycodone PO QID PRN Pain Pantoprazole Sodium 40 mg 12/07/19 06:00 Protonix PO ACBREAKFAST [facility] Prednisone 20 mg 12/07/19 07:00 Prednisone PO WITHBREAKFAST [facility] Ropinirole HCl 0.5 mg 12/06/19 21:00 Requip PO BEDTIME [facility] Sodium Chloride 10 ml 12/06/19 12:50 12/06/19 13:53 Saline Flush FLUSH 10 ml ASDIRECTED PRN Administration Keep Vein Open Trazodone HCl 50 mg 12/06/19 21:00 Trazodone PO BEDTIME [facility] Discontinued Medications Generic Name Dose Route Start Last Admin Trade Name Freq PRN Reason Stop Dose Admin Hydromorphone HCl 0.5 mg 12/06/19 12:52 12/06/19 13:46 Dilaudid IVPUSH 12/06/19 12:53 0.5 mg ONETIME ONE Administration Hydromorphone HCl 0.5 mg 12/06/19 16:29 12/06/19 16:43 Dilaudid IVPUSH 12/06/19 16:30 0.5 mg ONETIME ONE Administration Ceftriaxone Sodium 1 gm/ 100 mls @ 200 mls/hr 12/06/19 16:28 12/06/19 16:43 Sodium Chloride IV 12/06/19 16:57 200 mls/hr ONETIME ONE Administration Prednisone 40 mg 12/06/19 18:47 Prednisone PO 12/06/19 18:48 ONETIME ONE - Re-Assessments/Exams Free Text/Narrative Re-Assessment/Exam: On exam, patient has marked tenderness to C8-T2, as well as the right lateral paraspinous muscles. This is likely the cause of her pain and numbness down her right arm due to nerve root impingement. She also has significant para spinal tenderness with spasms to the muscles to the right lateral aspect of T8- T11. Patient has a strong smell of urine. Nursing staff verbalized that she was soaked in urine on arrival to the ER. She had towels tucked around her which were also soaked in urine. Patient has stasis ulcers to the bilateral medial aspects of her ankle as well as the right lateral ankle. She verbalized that she changes the dressing on these, however the dressing had a very foul smell and does not appear that it has been changed recently. There is some redness noted surrounding the ulcers. I have ordered a CBC, CMP, blood cultures , lactic acid, urinalysis, NS at 150, and Dilaudid 0.5 mg for pain. 12/06/19 1630 Hematology showed an anion gap mildly elevated at 17.4, BUN 24, creatinine 1.1, CRP elevated at 5.1. WBCs and lactic acid were found to be normal. Urinalysis was positive for nitrates, 1+ leukocyte esterase, 5-10 RBCs, 50-75 WBCs, and many bacteria. Patient does continue to run a low-grade fever around 100.1. I discussed the case, with social services Barbara. She visited with the patient who is in agreement to go to [facility]. Based on her presentation today, I do not feel that it is safe for her to be taking care of herself at home at this time. Have discussed the case with Dr. Ford. He will admit the patient for IV antibiotics for urinary tract infection as well as stasis ulcers. Patient verbalizes increased back pain at this time. I have order another Dilaudid 0.5 mg. I will also start her on Rocephin 1 g IV. Departure - Departure Time of Disposition: 16:30 Disposition: Admitted As Inpatient 66 Clinical Impression: UTI (urinary tract infection) Qualifiers: Urinary tract infection type: site unspecified Hematuria presence: without hematuria Qualified Code(s): N39.0 - Urinary tract infection, site not specified Ulcers of both lower extremities Qualifiers: Non-pressure ulcer stage: unspecified non-pressure ulcer stage Qualified Code(s ): L97.919 - Non-pressure chronic ulcer of unspecified part of right lower leg with unspecified severity - Discharge Information *PRESCRIPTION DRUG MONITORING PROGRAM REVIEWED*: No *COPY OF PRESCRIPTION DRUG MONITORING REPORT IN PATIENT KARLA: No Sepsis Event Note - Evaluation Sepsis Screening Result: No Definite Risk - Focused Exam Vital Signs: Vital Signs Temp Pulse Resp BP Pulse Ox 12/06/19 12:31 100.6 F 101 H 16 145/105 H 97 Date Exam was Performed: 12/06/19 Time Exam was Performed: 19:32 - My Orders Last 24 Hours: My Active Orders 12/06/19 12:50 Sodium Chloride 0.9% [Saline Flush] 10 ml FLUSH ASDIRECTED PRN Blood Culture x2 Reflex Set [OM.PC] Stat Peripheral IV Insertion Adult [OM.PC] Stat 12/06/19 13:00 Sodium Chloride 0.9% [Normal Saline] 1,000 ml IV ASDIRECTED 12/06/19 13:23 CULTURE BLOOD [BC] Stat 12/06/19 13:40 CULTURE BLOOD [BC] Stat 12/06/19 16:47 CULTURE ANAEROBIC + SMEAR [RM] Stat - Assessment/Plan Last 24 Hours: My Active Orders 12/06/19 12:50 Sodium Chloride 0.9% [Saline Flush] 10 ml FLUSH ASDIRECTED PRN Blood Culture x2 Reflex Set [OM.PC] Stat Peripheral IV Insertion Adult [OM.PC] Stat 12/06/19 13:00 Sodium Chloride 0.9% [Normal Saline] 1,000 ml IV ASDIRECTED 12/06/19 13:23 CULTURE BLOOD [BC] Stat 12/06/19 13:40 CULTURE BLOOD [BC] Stat 12/06/19 16:47 CULTURE ANAEROBIC + SMEAR [RM] Stat
[2019-12-06] MEDS ORDERED: cefTRIAXone 1 GM in Sodium Chloride 0.9% 100 ML IV ONE (16:28)
[2019-12-06] MEDS ORDERED: Nystatin Crm 30 GM Tube TOP PRN (18:35)
[2019-12-06] MEDS ORDERED: diphenhydrAMINE 25 MG Cap PO PRN (18:35)
[2019-12-06] MEDS ORDERED: Ondansetron 4 MG Tab.DIS PO PRN (18:35)
[2019-12-06] MEDS ORDERED: HYDROmorphone 0.5 MG/0.5 ML Syringe IVPUSH PRN (18:42)
[2019-12-06] MEDS ORDERED: predniSONE 20 MG Tab PO ONE ×2 (18:47→21:15)
--- NOTE | 2019-12-06 18:49 | PCM.HP.2 ---
H&P History of Present Illness - General Date of Service: 12/06/19 Admit Problem/Dx: Admission Diagnosis/Problem Admission Diagnosis/Problem Urinary tract infection - History of Present Illness Initial Comments - Free Text/Narative: 64-year-old female with history of rheumatoid arthritis and chronic lower extremity ulcers presented to the emergency room after developing right-sided low back pain and right hand numbness. Patient was riding a bus to and from [place] on Tuesday when she went to see her plastic surgeon. Patient states that she then developed right arm and hand numbness and right-sided low back pain. She did go to urgent care center yesterday, but no treatment was rendered. This morning when she woke up she was unable to get out of bed because of back pain. Patient now has difficulty raising her right arm or closing her right hand secondary to pain. Patient also has chronic bilateral lower extremity ulcers for the last 8 years. They have developed a foul smell and weep. They were noted in the emergency room. Apparently patient spent 2 months at [facility] in [place], [place] in 2019. She then went to [facility] for care of these lesions. She states that she has had some type of skin lesion for over 35 years. In the emergency room patient was found to have nitrite positive UTI. She self caths for the last 6 months secondary to urinary retention. She had a low- grade fever of 100.6 and because of her weakness, pain, and UTI it was felt that she would benefit from hospitalization and possible transition to a fdc facility. She was given Rocephin in the emergency room. Right Lower Back Pain Score (Numeric/FACES): 9 - Related Data Allergies/Adverse Reactions: Allergies Allergy/AdvReac Type Severity Reaction Status Date / Time adhesive Allergy Rash Verified 12/06/19 12:33 alginic acid Allergy Rash Verified 12/06/19 12:33 [From addwishney (onesimo alginate-honey)] amikacin Allergy Hives Verified 12/06/19 12:33 clindamycin Allergy Rash Verified 12/06/19 12:33 daptomycin Allergy Muscle Verified 12/06/19 12:33 Weakness green pepper Allergy Diarrhea Verified 12/06/19 12:33 honey Allergy Rash Verified 12/06/19 12:33 [From addwishney (onesimo alginate-honey)] hydroxychloroquine Allergy Other Verified 12/06/19 12:33 [From Plaquenil] lactose Allergy Diarrhea Verified 12/06/19 12:33 latex Allergy Hives Verified 12/06/19 12:33 NSAIDS (Non-Steroidal Allergy Rash Verified 12/06/19 12:33 Anti-Inflamma penicillamine Allergy Blisters Verified 12/06/19 12:33 [From Cuprimine] Penicillins Allergy Rash Verified 12/06/19 12:33 pentoxifylline [From Trental] Allergy Nausea and Verified 12/06/19 12:33 Vomiting sulfamethoxazole Allergy Nausea and Verified 12/06/19 12:33 [From Septra] Vomiting trimethoprim [From Septra] Allergy Nausea and Verified 12/06/19 12:33 Vomiting vancomycin Allergy Rash Verified 12/06/19 12:33 warfarin [From Coumadin] Allergy Itching Verified 12/06/19 12:33 Home Medications: Home Meds Cholecalciferol (Vitamin D3) [Vitamin D3] 2,000 unit PO DAILY 05/13/18 [History] Lutein 40 mg PO DAILY 05/13/18 [History] Methenamine Hippurate [Hiprex] 1 gm PO BID 05/13/18 [History] traZODone HCl [Trazodone HCl] 50 mg PO BEDTIME 05/13/18 [History] Acetaminophen [Tylenol] 650 mg PO Q4HR 12/06/19 [History] Alfuzosin HCl [Alfuzosin HCl ER] 10 mg PO DAILY 12/06/19 [History] Ascorbic Acid 500 mg PO BID 12/06/19 [History] Calcium Carbonate 500 mg PO Q4HR PRN 12/06/19 [History] Calcium Carbonate/Vitamin D3 [Calcium Carbonate/Vitamin D 600 MG-200 Unit] 1 tab PO BID 12/06/19 [History] Cetirizine [ZyrTEC] 10 mg PO DAILY 12/06/19 [History] Cholestyramine/Sucrose [Cholestyramine] 4 g PO DAILY 12/06/19 [History] Clobetasol Propionate [Temovate 0.05% Oint] 1 applic TOP BID PRN 12/06/19 [ History] Cranberry Fruit Concentrate [Cranberry] 450 mg PO BID 12/06/19 [History] Diclofenac/Hyaluronate/Niacin [Diclofen 3%-Hyaluron 2%-Niac4%] 2 gm TOP BID PRN 12/06/19 [History] Ferrous Sulfate 325 mg PO DAILY 12/06/19 [History] Folic Acid 1 mg PO DAILY 12/06/19 [History] Hydrocortisone [Hydrocortisone 1% Crm] 1 applic TOP TID PRN 12/06/19 [History] Lidocaine 5% [Lidoderm 5%] 1 patch TOP DAILY 12/06/19 [History] Loperamide [Imodium AD] 2 mg PO DAILY PRN 12/06/19 [History] Lycopene 10 mg PO DAILY 12/06/19 [History] Magnesium Oxide 400 mg PO BID 12/06/19 [History] Methotrexate Sodium [Methotrexate] 17.5 mg PO ASDIRECTED 12/06/19 [History] Multivitamin [Multivitamins] 1 tab PO DAILY 12/06/19 [History] Non-Formulary Medication [NF Drug] 2 scoop PO DAILY 12/06/19 [History] Nystatin [Nystatin Crm] 1 applic TOP BID PRN 12/06/19 [History] Nystatin [Nystop] 1 applic TOP BID PRN 12/06/19 [History] Ondansetron [Zofran ODT] 1 tab PO Q6HR PRN 12/06/19 [History] Pantoprazole Sodium [Protonix] 40 mg PO DAILY 12/06/19 [History] Sodium Hypochlorite [Anasept] 1 inch TOP DAILY 12/06/19 [History] Zoledronic Acid in Water [Reclast] 5 mg .ROUTE ASDIRECTED 12/06/19 [History] diphenhydrAMINE [Benadryl] 25 mg PO Q4HR PRN 12/06/19 [History] hydrOXYzine HCL [Hydroxyzine HCl] 10 mg PO TID 12/06/19 [History] oxyCODONE 5 mg PO QID 12/06/19 [History] predniSONE [Prednisone] 6 mg PO DAILY 12/06/19 [History] rOPINIRole [Requip] 0.5 mg PO BEDTIME 12/06/19 [History] Past Medical History HEENT History: Reports: Other (See Below) Other HEENT History: wears glasses Cardiovascular History: Reports: Hypertension Other Cardiovascular History: pt states no hx of HTN Gastrointestinal History: Reports: GERD Genitourinary History: Reports: Renal Disease Musculoskeletal History: Reports: RA, Other (See Below) Other Musculoskeletal History: broke both of knees, broke four ribs, 3 hip replacements, broke pelvic bone, broke left hand, broke collar bone, bunyonectomy bilateral feet Endocrine/Metabolic History: Reports: Diabetes, Type II Hematologic History: Reports: Folic Acid Dermatologic History: Reports: Other (See Below) Other Dermatologic History: ulcers to bilateral legs - Infectious Disease History Infectious Disease History: Reports: Chicken Pox, Measles, MRSA, Other (See Below) Other Infectious Disease History: pt states hx of mrsa in feet in 1985 and 2014 - Past Surgical History GI Surgical History: Reports: None Social & Family History - Family History Family Medical History: Noncontributory - Tobacco Use Smoking Status *Q: Never Smoker Used Tobacco, but Quit: Yes Month/Year Tobacco Last Used: 2009 - Caffeine Use Caffeine Use: Reports: None - Recreational Drug Use Recreational Drug Use: No H&P Review of Systems - Review of Systems: Review Of Systems: Comprehensive ROS is negative, except as noted in HPI. Exam - Exam Exam: See Below - Vital Signs Vital Signs: Last Vital Signs Temp 99.1 F 12/06/19 17:37 Pulse 106 H 12/06/19 17:37 Resp 19 12/06/19 17:37 BP 132/64 12/06/19 17:37 Pulse Ox 93 L 12/06/19 17:37 Weight: 195 lb - Exam Quality Assessment: No: Supplemental Oxygen General: Alert, Oriented, 4 HEENT: Conjunctiva Clear, Hearing Intact, Mucosa Moist & [place], Normal Nasal Septum Neck: Supple, Trachea Midline, 2 Lungs: Clear to Auscultation, Normal Respiratory Effort Cardiovascular: Regular Rate, Regular Rhythm, Normal S1, Normal S2 GI/Abdominal Exam: Normal Bowel Sounds, Soft, Non-Tender, No Organomegaly, No Distention, No Abnormal Bruit, No Mass Extremities: Normal Capillary Refill, Pedal Edema Peripheral Pulses: 0: Posterior Tibial (L), Posterior Tibial (R), 1+: Dorsalis Pedis (L), Dorsalis Pedis (R) Skin: Other (2 large ulcerated lesions on the right calf with necrotic center and yellowish discharge. 1 large ulcerated lesion with necrotic green-black lesion in the center also with yellowish discharge and foul-smelling.) Neurological: Cranial Nerves Intact Neuro Extensive - Mental Status: Alert, Oriented x3, Normal Mood/Affect, Normal Cognition, Memory Intact Neuro Extensive - Motor, Sensory, Reflexes: Other (Unable to spudder on right hand secondary to pain. Unable to lift right arm also secondary to pain. Left hand with decreased spudder strength.) - Patient Data Lab Results Last 24 hrs: Laboratory Results - last 24 hr 12/06/19 12/06/19 12/06/19 Range/Units 13:23 13:23 13:23 WBC 9.16 (3.98-10.04) K/mm3 RBC 3.77 L (3.98-5.22) M/mm3 Hgb 11.5 D (11.2-15.7) gm/dl Hct 37.0 (34.1-44.9) % MCV 98.1 H D (79.4-94.8) fl MCH 30.5 (25.6-32.2) pg MCHC 31.1 L (32.2-35.5) g/dl RDW Std Deviation 64.2 H (36.4-46.3) fL Plt Count 360 (182-369) K/mm3 MPV 8.8 L (9.4-12.3) fl Neut % (Auto) 74.5 H (34.0-71.1) % Lymph % (Auto) 15.6 L (19.3-51.7) % [place] % (Auto) 8.2 (4.7-12.5) % Eos % (Auto) 1.2 (0.7-5.8) Baso % (Auto) 0.2 (0.1-1.2) % Neut # (Auto) 6.82 H (1.56-6.13) K/mm3 Lymph # (Auto) 1.43 (1.18-3.74) K/mm3 [place] # (Auto) 0.75 H (0.24-0.36) K/mm3 Eos # (Auto) 0.11 (0.04-0.36) K/mm3 Baso # (Auto) 0.02 (0.01-0.08) K/mm3 Sodium 144 (136-145) mEq/L Potassium 4.4 (3.5-5.1) mEq/L Chloride 110 H (98-107) mEq/L Carbon Dioxide 21 (21-32) mEq/L Anion Gap 17.4 H (5-15) BUN 24 H (7-18) mg/dL Creatinine 1.1 H (0.55-1.02) mg/dL Est Cr Clr Drug Dosing 46.49 mL/min Estimated GFR (MDRD) 50 (>60) mL/min BUN/Creatinine Ratio 21.8 H (14-18) Glucose 89 (80-115) mg/dL Lactic Acid 0.9 (0.4-2.0) mmol/L Calcium 7.9 L (8.5-10.1) mg/dL Total Bilirubin 1.0 (0.2-1.0) mg/dL AST 18 (15-37) U/L ALT 17 (14-59) U/L Alkaline Phosphatase 79 (46-116) U/L C-Reactive Protein 5.1 H* (<1.0) mg/dL Total Protein 6.8 (6.4-8.2) g/dl Albumin 2.3 L (3.4-5.0) g/dl Globulin 4.5 gm/dL Albumin/Globulin Ratio 0.5 L (1-2) Urine Color (Yellow) Urine Appearance (Clear) Urine pH (5.0-8.0) Ur Specific [place] (1.005-1.030) Urine Protein (Negative) Urine Glucose (UA) (Negative) Urine Ketones (Negative) Urine Occult Blood (Negative) Urine Nitrite (Negative) Urine Bilirubin (Negative) Urine Urobilinogen (0.2-1.0) Ur Leukocyte Esterase (Negative) Urine RBC (0-5) /hpf Urine WBC (0-5) /hpf Ur Squamous Epith Cells (0-5) /hpf Urine Bacteria (FEW) /hpf Urine Mucus (FEW) /hpf //20 Range/Units 15:44 WBC (3.98-10.04) K/mm3 RBC (3.98-5.22) M/mm3 Hgb (11.2-15.7) gm/dl Hct (34.1-44.9) % MCV (79.4-94.8) fl MCH (25.6-32.2) pg MCHC (32.2-35.5) g/dl RDW Std Deviation (36.4-46.3) fL Plt Count (182-369) K/mm3 MPV (9.4-12.3) fl Neut % (Auto) (34.0-71.1) % Lymph % (Auto) (19.3-51.7) % [place] % (Auto) (4.7-12.5) % Eos % (Auto) (0.7-5.8) Baso % (Auto) (0.1-1.2) % Neut # (Auto) (1.56-6.13) K/mm3 Lymph # (Auto) (1.18-3.74) K/mm3 [place] # (Auto) (0.24-0.36) K/mm3 Eos # (Auto) (0.04-0.36) K/mm3 Baso # (Auto) (0.01-0.08) K/mm3 Sodium (136-145) mEq/L Potassium (3.5-5.1) mEq/L Chloride (98-107) mEq/L Carbon Dioxide (21-32) mEq/L Anion Gap (5-15) BUN (7-18) mg/dL Creatinine (0.55-1.02) mg/dL Est Cr Clr Drug Dosing mL/min Estimated GFR (MDRD) (>60) mL/min BUN/Creatinine Ratio (14-18) Glucose (80-115) mg/dL Lactic Acid (0.4-2.0) mmol/L Calcium (8.5-10.1) mg/dL Total Bilirubin (0.2-1.0) mg/dL AST (15-37) U/L ALT (14-59) U/L Alkaline Phosphatase (46-116) U/L C-Reactive Protein (<1.0) mg/dL Total Protein (6.4-8.2) g/dl Albumin (3.4-5.0) g/dl Globulin gm/dL Albumin/Globulin Ratio (1-2) Urine Color Yellow (Yellow) Urine Appearance Slt cloudy H (Clear) Urine pH 6.0 (5.0-8.0) Ur Specific [place] 1.025 (1.005-1.030) Urine Protein Trace H (Negative) Urine Glucose (UA) Negative (Negative) Urine Ketones Negative (Negative) Urine Occult Blood Trace-intact H (Negative) Urine Nitrite Positive H (Negative) Urine Bilirubin Negative (Negative) Urine Urobilinogen 0.2 (0.2-1.0) Ur Leukocyte Esterase 1+ H (Negative) Urine RBC 5-10 H (0-5) /hpf Urine WBC 50-75 H (0-5) /hpf Ur Squamous Epith Cells 0-5 (0-5) /hpf Urine Bacteria Many H (FEW) /hpf Urine Mucus Not seen (FEW) /hpf Result Diagrams: 12/06/19 13:23 12/06/19 13:23 Sepsis Event Note - Evaluation Sepsis Screening Result: No Definite Risk - Focused Exam Vital Signs: Vital Signs Temp Temp Pulse Pulse Resp BP BP 12/06/19 17:37 99.1 F 106 H 19 132/64 12/06/19 12:31 100.6 F 101 H 16 145/105 H Pulse Ox 12/06/19 17:37 93 L 12/06/19 12:31 97 Date Exam was Performed: 12/06/19 Time Exam was Performed: 20:48 Problem List Initiated/Reviewed/Updated: Yes Orders Last 24hrs: Active Orders 24 hr Category Date Time Status Admission Status [Patient Status] [ADT] Routine ADT 12/06/19 16:53 Active Oxygen Therapy [RC] PRN Care 12/06/19 18:42 Active Up With Assistance [RC] ASDIRECTED Care 12/06/19 18:42 Active VTE/DVT Education [RC] PER UNIT ROUTINE Care 12/06/19 18:42 Active Vital Signs [RC] Q4HR Care 12/06/19 18:42 Active Consult to Case Management/Environmental Resource Specialist [CONS] Cons 12/06/19 18:46 Active Routine OT Evaluation and Treatment [CONS] Routine Cons 12/06/19 18:46 Active PT Evaluation and Treatment [CONS] Routine Cons 12/06/19 18:46 Active Regular Diet [DIET] Diet 12/07/19 Breakfast Active C-REACTIVE PROTEIN [CHEM] AM Lab 12/07/19 05:11 Ordered C-REACTIVE PROTEIN [CHEM] AM Lab 12/08/19 05:11 Ordered CBC WITH AUTO DIFF [HEME] AM Lab 12/07/19 05:11 Ordered CBC WITH AUTO DIFF [HEME] AM Lab 12/08/19 05:11 Ordered COMPREHENSIVE METABOLIC PN,CMP [CHEM] AM Lab 12/07/19 05:11 Ordered COMPREHENSIVE METABOLIC PN,CMP [CHEM] AM Lab 12/08/19 05:11 Ordered CULTURE ANAEROBIC + SMEAR [RM] Stat Lab 12/06/19 16:47 Ordered CULTURE BLOOD [BC] Stat Lab 12/06/19 13:23 Received CULTURE BLOOD [BC] Stat Lab 12/06/19 13:40 Received MAGNESIUM [CHEM] AM Lab 12/07/19 05:11 Ordered MAGNESIUM [CHEM] AM Lab 12/08/19 05:11 Ordered Acetaminophen [Tylenol] Med 12/06/19 18:42 Ordered 650 mg PO Q4H PRN Ascorbic Acid [Vitamin C] Med 12/06/19 21:00 Ordered 500 mg PO BID Calcium Carbonate/Vitamin D3 [Calcium Carbonate/Vitamin Med 12/06/19 21:00 Ordered D 600 MG-200 Unit] 1 tab PO BID Cholestyramine/Sucrose [Cholestyramine Packet] Med 12/07/19 09:00 Ordered 4 gm PO DAILY Enoxaparin [Lovenox] Med 12/07/19 09:00 Ordered 40 mg SUBCUT DAILY Ferrous Sulfate Med 12/07/19 09:00 Ordered 325 mg PO DAILY Folic Acid Med 12/07/19 09:00 Ordered 1 mg PO DAILY HYDROmorphone [Dilaudid] Med 12/06/19 18:42 Ordered 0.5 mg IVPUSH Q2H PRN Loperamide Med 12/06/19 18:35 Ordered 2 mg PO DAILY PRN Nystatin [Nystatin Crm] Med 12/06/19 18:35 Ordered DOSE gm TOP BID PRN Nystatin [Nystop] Med 12/06/19 18:35 Ordered DOSE gm TOP BID PRN Ondansetron [Zofran ODT] Med 12/06/19 18:35 Active 4 mg PO Q6HR PRN Pantoprazole [ProTONIX] Med 12/07/19 06:00 Active 40 mg PO ACBREAKFAST Sodium Chloride 0.9% [Normal Saline] 1,000 ml Med 12/06/19 13:00 Active IV ASDIRECTED Sodium Chloride 0.9% [Saline Flush] Med 12/06/19 12:50 Active 10 ml FLUSH ASDIRECTED PRN diphenhydrAMINE [Benadryl] Med 12/06/19 18:35 Ordered 25 mg PO Q4HR PRN hydrOXYzine HCL [Atarax] Med 12/06/19 21:00 Ordered 10 mg PO TID oxyCODONE Med 12/06/19 18:35 Active 5 mg PO QID PRN predniSONE Med 12/07/19 07:00 Ordered 20 mg PO WITHBREAKFAST predniSONE Med 12/06/19 18:47 Once 40 mg PO ONETIME ONE rOPINIRole Med 12/06/19 21:00 Ordered 0.5 mg PO BEDTIME traZODone Med 12/06/19 21:00 Active 50 mg PO BEDTIME Blood Culture x2 Reflex Set [OM.PC] Stat Oth 12/06/19 12:50 Ordered Peripheral IV Insertion Adult [OM.PC] Stat Oth 12/06/19 12:50 Ordered Resuscitation Status Routine Resus Stat 12/06/19 18:42 Ordered Medication Orders Acetaminophen (Tylenol) 650 mg PO Q4H PRN PRN Reason: Pain (Mild 1-3)/fever Ascorbic Acid (Vitamin C) 500 mg PO BID [facility] Calcium Carbonate (Calcium Carbonate/Vitamin D 600 Mg-200 Unit) 1 tab PO BID [facility] Cholestyramine Resin (Cholestyramine Packet) 4 gm PO DAILY [facility] Diphenhydramine HCl (Benadryl) 25 mg PO Q4HR PRN PRN Reason: Other Enoxaparin Sodium (Lovenox) 40 mg SUBCUT DAILY [facility] Folic Acid (Folic Acid) 1 mg PO DAILY [facility] Hydromorphone HCl (Dilaudid) 0.5 mg IVPUSH Q2H PRN PRN Reason: Pain (severe 7-10) Hydroxyzine HCl (Atarax) 10 mg PO TID [facility] Sodium Chloride (Normal Saline) 1,000 mls @ 150 mls/hr IV ASDIRECTED [facility] Last Admin: 12/06/19 13:46 Dose: 150 mls/hr Non-Formulary Medication (Ferrous Sulfate) 325 mg PO DAILY [facility] Non-Formulary Medication (Loperamide) 2 mg PO DAILY PRN PRN Reason: Diarrhea Non-Formulary Medication (Ropinirole) 0.5 mg PO BEDTIME [facility] Nystatin (Nystatin Crm) gm TOP BID PRN PRN Reason: Itching Nystatin (Nystop) gm TOP BID PRN PRN Reason: Itching Ondansetron HCl (Zofran Odt) 4 mg PO Q6HR PRN PRN Reason: Nausea/Vomiting Oxycodone HCl (Oxycodone) 5 mg PO QID PRN PRN Reason: Pain Pantoprazole Sodium (Protonix) 40 mg PO ACBREAKFAST [facility] Sodium Chloride (Saline Flush) 10 ml FLUSH ASDIRECTED PRN PRN Reason: Keep Vein Open Last Admin: 12/06/19 13:53 Dose: 10 ml Trazodone HCl (Trazodone) 50 mg PO BEDTIME [facility] Assessment/Plan Comment:: Assessment 64-year-old female with rheumatoid arthritis and chronic lower extremity ulcers with acute flare of rheumatoid arthritis * Patient is developed significant pain and weakness secondary to a flare * Lower extremity ulcers with thickened necrotic centers * Patient reportedly recently seen by plastic surgery, but report not available * C-reactive protein of 5.1 Complicated UTI * Patient has urinary retention and self catheterizes. * Positive nitrites on UA with 50-70 WBCs per high-power field * Normal WBC of 9.16 with slight left shift with absolute neutrophils of 6.82 and 74.5% Chronic renal insufficiency * Stage III chronic renal sufficiency with an estimated GFR of 50, which is stable from since August 2018 Plan * Admit to medical floor * Consult Dr. Marmolejo in surgery for possible surgical debridement * Consult physical therapy for wound care and ambulation * Consult Occupational Therapy * Continue Rocephin * Prednisone 40 mg now and then 20 mg every morning for rheumatoid flare * Urine culture and blood cultures * Reconcile home meds * Recheck CBC, CMP, and magnesium in the morning * CODE STATUS: Full code * VTE prophylaxis with Lovenox * Consult case management and psychotherapist social worker to help with placement. - Mortality Measure Prognosis:: Good
[2019-12-06] MEDS ORDERED: traZODone 50 MG Tab PO SCH (21:00)
[2019-12-06] MEDS: rOPINIRole 0.25 MG Tab PO SCH (21:14)
[2019-12-06] MEDS: Calcium Carbonate/Vitamin D3 600 MG-200 Units Tab PO SCH (21:15)
[2019-12-06] MEDS: Acetaminophen 325 MG Tab PO PRN (21:15)
[2019-12-06] MEDS: Ascorbic Acid 500 MG Tab PO SCH (21:15)
[2019-12-06] MEDS: oxyCODONE 5 MG Tab PO PRN (21:16)
[2019-12-06] MEDS: hydrOXYzine HCl 10 MG Tab PO SCH (22:37)
[2019-12-07] MEDS: Acetaminophen 325 MG Tab PO PRN ×3 (03:20→21:55)
[2019-12-07] MEDS: oxyCODONE 5 MG Tab PO PRN ×3 (03:22→21:56)
[2019-12-07] MEDS: predniSONE 20 MG Tab PO SCH (08:55)
[2019-12-07] MEDS: Pantoprazole 40 MG Tab.CR PO SCH (08:57)
[2019-12-07] MEDS ORDERED: Cholestyramine/Sucrose Powder 4 GM Packet PO SCH (09:00)
[2019-12-07] MEDS: Ascorbic Acid 500 MG Tab PO SCH ×2 (09:02→20:44)
[2019-12-07] MEDS: Folic Acid 1 MG Tab PO SCH (09:02)
[2019-12-07] MEDS: hydrOXYzine HCl 10 MG Tab PO SCH ×3 (09:02→20:44)
[2019-12-07] MEDS: Calcium Carbonate/Vitamin D3 600 MG-200 Units Tab PO SCH ×2 (09:03→20:44)
[2019-12-07] MEDS: Enoxaparin 40 MG/0.4 ML Syringe SUBCUT SCH (09:03)
[2019-12-07] MEDS: Ferrous Sulfate 324 MG Tab.EC PO SCH (09:03)
[2019-12-07] MEDS: Dextrose 5%-0.45% NaCl 1,000 ML IV SCH ×2 (09:26→15:40)
[2019-12-07] MEDS: Linezolid 600 MG in Premix Bag 1 BAG IV SCH ×2 (09:31→20:44)
[2019-12-07] MEDS ORDERED: Magnesium Sulfate/Water 4 GM in Premix Bag 1 BAG IV ONE (11:00)
[2019-12-07] MEDS: Cefepime 2 GM in Premix Bag 1 BAG IV SCH ×2 (11:32→23:56)
--- NOTE | 2019-12-07 13:38 | PCM.PN ---
- General Info Date of Service: 12/07/19 Admission Dx/Problem (Free Text): Admission Diagnosis/Problem Admission Diagnosis/Problem Urinary tract infection Subjective Update: She states that she is feeling much better this morning. She was given prednisone last night and it appears that is made her back pain and shoulder pain better. She is able to lift her right arm now. She denies any fever or chills. No abdominal pain. - Review of Systems General: Reports: No Symptoms HEENT: Reports: No Symptoms Pulmonary: Reports: No Symptoms Cardiovascular: Reports: No Symptoms Gastrointestinal: Reports: No Symptoms Musculoskeletal: Reports: Arm Pain (Much improved) Skin: Reports: No Symptoms Neurological: Reports: No Symptoms - Patient Data Vitals - Most Recent: Last Vital Signs Temp 98.8 F 12/07/19 12:01 Pulse 76 12/07/19 12:01 Resp 18 12/07/19 12:01 BP 109/58 L 12/07/19 12:01 Pulse Ox 94 L 12/07/19 12:01 Weight - Most Recent: 193 lb I&O - Last 24 Hours: Intake & Output 12/06/19 12/07/19 12/07/19 22:59 06:59 14:59 Intake Total 1200 120 Balance 1200 120 Lab Results Last 24 Hours: Laboratory Results - last 24 hr 12/06/19 12/06/19 12/06/19 Range/Units 13:23 13:23 13:23 WBC 9.16 (3.98-10.04) K/mm3 RBC 3.77 L (3.98-5.22) M/mm3 Hgb 11.5 D (11.2-15.7) gm/dl Hct 37.0 (34.1-44.9) % MCV 98.1 H D (79.4-94.8) fl MCH 30.5 (25.6-32.2) pg MCHC 31.1 L (32.2-35.5) g/dl RDW Std Deviation 64.2 H (36.4-46.3) fL Plt Count 360 (182-369) K/mm3 MPV 8.8 L (9.4-12.3) fl Neut % (Auto) 74.5 H (34.0-71.1) % Lymph % (Auto) 15.6 L (19.3-51.7) % [place] % (Auto) 8.2 (4.7-12.5) % Eos % (Auto) 1.2 (0.7-5.8) Baso % (Auto) 0.2 (0.1-1.2) % Neut # (Auto) 6.82 H (1.56-6.13) K/mm3 Lymph # (Auto) 1.43 (1.18-3.74) K/mm3 [place] # (Auto) 0.75 H (0.24-0.36) K/mm3 Eos # (Auto) 0.11 (0.04-0.36) K/mm3 Baso # (Auto) 0.02 (0.01-0.08) K/mm3 Manual Slide Review Sodium 144 (136-145) mEq/L Potassium 4.4 (3.5-5.1) mEq/L Chloride 110 H (98-107) mEq/L Carbon Dioxide 21 (21-32) mEq/L Anion Gap 17.4 H (5-15) BUN 24 H (7-18) mg/dL Creatinine 1.1 H (0.55-1.02) mg/dL Est Cr Clr Drug Dosing 46.49 mL/min Estimated GFR (MDRD) 50 (>60) mL/min BUN/Creatinine Ratio 21.8 H (14-18) Glucose 89 (80-115) mg/dL Lactic Acid 0.9 (0.4-2.0) mmol/L Calcium 7.9 L (8.5-10.1) mg/dL Magnesium (1.8-2.4) mg/dl Total Bilirubin 1.0 (0.2-1.0) mg/dL AST 18 (15-37) U/L ALT 17 (14-59) U/L Alkaline Phosphatase 79 (46-116) U/L C-Reactive Protein 5.1 H* (<1.0) mg/dL Total Protein 6.8 (6.4-8.2) g/dl Albumin 2.3 L (3.4-5.0) g/dl Globulin 4.5 gm/dL Albumin/Globulin Ratio 0.5 L (1-2) Urine Color (Yellow) Urine Appearance (Clear) Urine pH (5.0-8.0) Ur Specific [place] (1.005-1.030) Urine Protein (Negative) Urine Glucose (UA) (Negative) Urine Ketones (Negative) Urine Occult Blood (Negative) Urine Nitrite (Negative) Urine Bilirubin (Negative) Urine Urobilinogen (0.2-1.0) Ur Leukocyte Esterase (Negative) Urine RBC (0-5) /hpf Urine WBC (0-5) /hpf Ur Squamous Epith Cells (0-5) /hpf Urine Bacteria (FEW) /hpf Urine Mucus (FEW) /hpf MRSA (PCR) 12/06/19 12/06/19 12/07/19 Range/Units 15:44 18:50 06:35 WBC 12.20 H (3.98-10.04) K/mm3 RBC 3.42 L (3.98-5.22) M/mm3 Hgb 10.3 L (11.2-15.7) gm/dl Hct 33.9 L (34.1-44.9) % MCV 99.1 H (79.4-94.8) fl MCH 30.1 (25.6-32.2) pg MCHC 30.4 L (32.2-35.5) g/dl RDW Std Deviation 61.5 H (36.4-46.3) fL Plt Count 324 (182-369) K/mm3 MPV 9.2 L (9.4-12.3) fl Neut % (Auto) 94.0 H (34.0-71.1) % Lymph % (Auto) 4.6 L (19.3-51.7) % [place] % (Auto) 1.1 L (4.7-12.5) % Eos % (Auto) 0 L (0.7-5.8) Baso % (Auto) 0.1 (0.1-1.2) % Neut # (Auto) 11.46 H (1.56-6.13) K/mm3 Lymph # (Auto) 0.56 L (1.18-3.74) K/mm3 [place] # (Auto) 0.14 L (0.24-0.36) K/mm3 Eos # (Auto) 0.00 L (0.04-0.36) K/mm3 Baso # (Auto) 0.01 (0.01-0.08) K/mm3 Manual Slide Review Abnormal smear Sodium (136-145) mEq/L Potassium (3.5-5.1) mEq/L Chloride (98-107) mEq/L Carbon Dioxide (21-32) mEq/L Anion Gap (5-15) BUN (7-18) mg/dL Creatinine (0.55-1.02) mg/dL Est Cr Clr Drug Dosing mL/min Estimated GFR (MDRD) (>60) mL/min BUN/Creatinine Ratio (14-18) Glucose (80-115) mg/dL Lactic Acid (0.4-2.0) mmol/L Calcium (8.5-10.1) mg/dL Magnesium (1.8-2.4) mg/dl Total Bilirubin (0.2-1.0) mg/dL AST (15-37) U/L ALT (14-59) U/L Alkaline Phosphatase (46-116) U/L C-Reactive Protein (<1.0) mg/dL Total Protein (6.4-8.2) g/dl Albumin (3.4-5.0) g/dl Globulin gm/dL Albumin/Globulin Ratio (1-2) Urine Color Yellow (Yellow) Urine Appearance Slt cloudy H (Clear) Urine pH 6.0 (5.0-8.0) Ur Specific [place] 1.025 (1.005-1.030) Urine Protein Trace H (Negative) Urine Glucose (UA) Negative (Negative) Urine Ketones Negative (Negative) Urine Occult Blood Trace-intact H (Negative) Urine Nitrite Positive H (Negative) Urine Bilirubin Negative (Negative) Urine Urobilinogen 0.2 (0.2-1.0) Ur Leukocyte Esterase 1+ H (Negative) Urine RBC 5-10 H (0-5) /hpf Urine WBC 50-75 H (0-5) /hpf Ur Squamous Epith Cells 0-5 (0-5) /hpf Urine Bacteria Many H (FEW) /hpf Urine Mucus Not seen (FEW) /hpf MRSA (PCR) Positive H 12/06/20 Range/Units 06:35 WBC (3.98-10.04) K/mm3 RBC (3.98-5.22) M/mm3 Hgb (11.2-15.7) gm/dl Hct (34.1-44.9) % MCV (79.4-94.8) fl MCH (25.6-32.2) pg MCHC (32.2-35.5) g/dl RDW Std Deviation (36.4-46.3) fL Plt Count (182-369) K/mm3 MPV (9.4-12.3) fl Neut % (Auto) (34.0-71.1) % Lymph % (Auto) (19.3-51.7) % [place] % (Auto) (4.7-12.5) % Eos % (Auto) (0.7-5.8) Baso % (Auto) (0.1-1.2) % Neut # (Auto) (1.56-6.13) K/mm3 Lymph # (Auto) (1.18-3.74) K/mm3 [place] # (Auto) (0.24-0.36) K/mm3 Eos # (Auto) (0.04-0.36) K/mm3 Baso # (Auto) (0.01-0.08) K/mm3 Manual Slide Review Sodium 142 (136-145) mEq/L Potassium 4.2 (3.5-5.1) mEq/L Chloride 109 H (98-107) mEq/L Carbon Dioxide 16 L (21-32) mEq/L Anion Gap 21.2 H (5-15) BUN 26 H (7-18) mg/dL Creatinine 1.1 H (0.55-1.02) mg/dL Est Cr Clr Drug Dosing 46.49 mL/min Estimated GFR (MDRD) 50 (>60) mL/min BUN/Creatinine Ratio 23.6 H (14-18) Glucose 109 (80-115) mg/dL Lactic Acid (0.4-2.0) mmol/L Calcium 7.5 L (8.5-10.1) mg/dL Magnesium 1.6 L (1.8-2.4) mg/dl Total Bilirubin 0.6 (0.2-1.0) mg/dL AST 16 (15-37) U/L ALT 15 (14-59) U/L Alkaline Phosphatase 66 (46-116) U/L C-Reactive Protein 10.1 H* (<1.0) mg/dL Total Protein 6.3 L (6.4-8.2) g/dl Albumin 2.0 L (3.4-5.0) g/dl Globulin 4.3 gm/dL Albumin/Globulin Ratio 0.5 L (1-2) Urine Color (Yellow) Urine Appearance (Clear) Urine pH (5.0-8.0) Ur Specific [place] (1.005-1.030) Urine Protein (Negative) Urine Glucose (UA) (Negative) Urine Ketones (Negative) Urine Occult Blood (Negative) Urine Nitrite (Negative) Urine Bilirubin (Negative) Urine Urobilinogen (0.2-1.0) Ur Leukocyte Esterase (Negative) Urine RBC (0-5) /hpf Urine WBC (0-5) /hpf Ur Squamous Epith Cells (0-5) /hpf Urine Bacteria (FEW) /hpf Urine Mucus (FEW) /hpf MRSA (PCR) Corey Results Last 24 Hours: Microbiology 12/06/19 16:47 Anaerobic Culture - Preliminary Ankle, Unspecified Gram Negative Rods Med Orders - Current: Current Medications Acetaminophen (Tylenol) 650 mg PO Q4H PRN PRN Reason: Pain (Mild 1-3)/fever Last Admin: 12/07/19 13:00 Dose: 650 mg Ascorbic Acid (Vitamin C) 500 mg PO BID [facility] Last Admin: 12/07/19 09:02 Dose: 500 mg Calcium Carbonate (Calcium Carbonate/Vitamin D 600 Mg-200 Unit) 1 tab PO BID [facility] Last Admin: 12/07/19 09:03 Dose: 1 tab Diphenhydramine HCl (Benadryl) 25 mg PO Q4HR PRN PRN Reason: Other Enoxaparin Sodium (Lovenox) 40 mg SUBCUT DAILY [facility] Last Admin: 12/07/19 09:03 Dose: 40 mg Ferrous Sulfate (Ferrous Sulfate) 324 mg PO DAILY [facility] Last Admin: 12/07/19 09:03 Dose: 324 mg Folic Acid (Folic Acid) 1 mg PO DAILY [facility] Last Admin: 12/07/19 09:02 Dose: 1 mg Hydromorphone HCl (Dilaudid) 0.5 mg IVPUSH Q2H PRN PRN Reason: Pain (severe 7-10) Hydroxyzine HCl (Atarax) 10 mg PO TID [facility] Last Admin: 12/07/19 09:02 Dose: 10 mg Linezolid 600 mg/ Premix 300 mls @ 300 mls/hr IV Q12H [facility] Last Admin: 12/07/19 09:31 Dose: 300 mls/hr Dextrose/Sodium Chloride (Dextrose 5%-1/2 Ns) 1,000 mls @ 100 mls/hr IV ASDIRECTED [facility] Last Admin: 12/07/19 09:26 Dose: 999 mls/hr Magnesium Sulfate 4 gm/ Premix 50 mls @ 12.5 mls/hr IV ONETIME ONE Stop: 12/07/19 14:59 Last Admin: 12/07/19 12:03 Dose: 12.5 mls/hr Cefepime HCl 2 gm/ Premix 50 mls @ 100 mls/hr IV Q12H [facility] Last Admin: 12/07/19 11:32 Dose: 100 mls/hr Loperamide HCl (Imodium) 2 mg PO DAILY PRN PRN Reason: Diarrhea Nystatin (Nystop) 0 gm TOP BID PRN PRN Reason: Itching Ondansetron HCl (Zofran Odt) 4 mg PO Q6HR PRN PRN Reason: Nausea/Vomiting Oxycodone HCl (Oxycodone) 5 mg PO QID PRN PRN Reason: Pain Last Admin: 12/07/19 12:57 Dose: 5 mg Pantoprazole Sodium (Protonix) 40 mg PO ACBREAKFAST [facility] Last Admin: 12/07/19 08:57 Dose: 40 mg Prednisone (Prednisone) 20 mg PO WITHBREAKFAST [facility] Last Admin: 12/07/19 08:55 Dose: 20 mg Ropinirole HCl (Requip) 0.5 mg PO BEDTIME [facility] Last Admin: 12/06/19 21:14 Dose: 0.5 mg Sodium Chloride (Saline Flush) 10 ml FLUSH ASDIRECTED PRN PRN Reason: Keep Vein Open Last Admin: 12/06/19 13:53 Dose: 10 ml Discontinued Medications Cholestyramine Resin (Cholestyramine Packet) 4 gm PO DAILY [facility] Last Admin: 12/07/19 09:01 Dose: Not Given Hydromorphone HCl (Dilaudid) 0.5 mg IVPUSH ONETIME ONE Stop: 12/06/19 12:53 Last Admin: 12/06/19 13:46 Dose: 0.5 mg Hydromorphone HCl (Dilaudid) 0.5 mg IVPUSH ONETIME ONE Stop: 12/06/19 16:30 Last Admin: 12/06/19 16:43 Dose: 0.5 mg Sodium Chloride (Normal Saline) 1,000 mls @ 150 mls/hr IV ASDIRECTED [facility] Last Admin: 12/06/19 20:50 Dose: 150 mls/hr Ceftriaxone Sodium 1 gm/ (Sodium Chloride) 100 mls @ 200 mls/hr IV ONETIME ONE Stop: 12/06/19 16:57 Last Admin: 12/06/19 16:43 Dose: 200 mls/hr Nystatin (Nystatin Crm) gm TOP BID PRN PRN Reason: Itching Prednisone (Prednisone) 40 mg PO ONETIME ONE Stop: 12/06/19 21:16 Last Admin: 12/06/19 21:14 Dose: 40 mg Trazodone HCl (Trazodone) 50 mg PO BEDTIME [facility] Last Admin: 12/06/19 21:15 Dose: 50 mg - Exam General: Alert, Oriented HEENT: Pupils Equal, Mucous Membr. Moist/[place] Neck: Supple Lungs: Normal Respiratory Effort, Crackles Cardiovascular: Regular Rate, Regular Rhythm GI/Abdominal Exam: Normal Bowel Sounds, Soft, Non-Tender, No Organomegaly, No Distention, No Abnormal Bruit, No Mass Extremities: Normal Inspection, Pedal Edema (1+) Skin: Warm, Dry, Intact Psy/Mental Status: Alert, Normal Affect, Normal Mood Sepsis Event Note - Evaluation Sepsis Screening Result: No Definite Risk - Focused Exam Vital Signs: Vital Signs Temp Pulse Resp BP Pulse Ox 12/07/19 12:01 98.8 F 76 18 109/58 L 94 L 12/07/19 08:47 97.5 F 80 116/54 L 95 12/07/19 03:39 97.5 F 84 18 112/64 94 L Date Exam was Performed: 12/07/19 Time Exam was Performed: 14:15 - Problem List Review Problem List Initiated/Reviewed/Updated: Yes - My Orders Last 24 Hours: My Active Orders 12/06/19 18:35 Nystatin [Nystop] 0 gm TOP BID PRN Ondansetron [Zofran ODT] 4 mg PO Q6HR PRN diphenhydrAMINE [Benadryl] 25 mg PO Q4HR PRN oxyCODONE 5 mg PO QID PRN 12/06/19 18:42 Oxygen Therapy [RC] PRN Up With Assistance [RC] ASDIRECTED VTE/DVT Education [RC] PER UNIT ROUTINE Vital Signs [RC] Q4HR Acetaminophen [Tylenol] 650 mg PO Q4H PRN HYDROmorphone [Dilaudid] 0.5 mg IVPUSH Q2H PRN Resuscitation Status Routine 12/06/19 18:46 Consult to Case Management/Director Of Parks And Recreation [CONS] Routine OT Evaluation and Treatment [CONS] Routine PT Evaluation and Treatment [CONS] Routine 12/06/19 18:56 Loperamide [Imodium] 2 mg PO DAILY PRN 12/06/19 19:02 Notify Provider Consults [RC] ASDIRECTED Consult to Physician [CONS] Routine 12/06/19 21:00 Ascorbic Acid [Vitamin C] 500 mg PO BID Calcium Carbonate/Vitamin D3 [Calcium Carbonate/Vitamin D 600 MG-200 Unit] 1 tab PO BID hydrOXYzine HCL [Atarax] 10 mg PO TID rOPINIRole [Requip] 0.5 mg PO BEDTIME 12/07/19 06:00 Pantoprazole [ProTONIX] 40 mg PO ACBREAKFAST 12/07/19 07:00 predniSONE 20 mg PO WITHBREAKFAST 12/07/19 09:00 Enoxaparin [Lovenox] 40 mg SUBCUT DAILY Ferrous Sulfate 324 mg PO DAILY Folic Acid 1 mg PO DAILY 12/07/19 09:15 Dextrose 5%-0.45% NaCl [Dextrose 5%-1/2 NS] 1,000 ml IV ASDIRECTED Linezolid [Zyvox] 600 mg Premix Bag 1 bag IV Q12H 12/07/19 11:00 Magnesium Sulfate/Water [Magnesium Sulfate in Water Premix] 4 gm Premix Bag 1 bag IV ONETIME 12/07/19 Lunch Regular Diet [DIET] 12/08/19 05:11 C-REACTIVE PROTEIN [CHEM] AM CBC WITH AUTO DIFF [HEME] AM COMPREHENSIVE METABOLIC PN,CMP [CHEM] AM MAGNESIUM [CHEM] AM - Plan Plan:: Assessment 64-year-old female with rheumatoid arthritis and chronic lower extremity ulcers with acute flare of rheumatoid arthritis * Patient is developed significant pain and weakness secondary to a flare * Pain is much improved after prednisone 40 mg on 12/06/2019 * Lower extremity ulcers with thickened necrotic centers * Patient reportedly recently seen by plastic surgery, but report not available * C-reactive protein of 5.1- 10.1 * Dr. Marmolejo in surgery consulted Complicated UTI * Patient has urinary retention and self catheterizes. * Patient has had multiple infections most, recently August 2019, positive for Pseudomonas and enterococcus. Pseudomonas was sensitive to cefepime but at a COREY of 8. Enterococcus was sensitive to the Nasalide. * She is allergic to penicillin and vancomycin and is MRSA positive. * Positive nitrites on UA with 50-70 WBCs per high-power field * WBC 9.16 --> 12.2 (steroid effect) * AG increased to 21 Chronic renal insufficiency * Stage III chronic renal sufficiency with an estimated GFR of 50, which is stable from since August 2018 Plan * Admit to medical floor * Physical therapy for wound care and ambulation * Occupational Therapy * Switch to cefepime and linezolid * Prednisone 20 mg every morning for rheumatoid flare * Urine culture and blood cultures * Start IVF 2/2 increasing AG and acidemia * Reconcile home meds * Recheck CBC, CMP, and magnesium in the morning * CODE STATUS: Full code * VTE prophylaxis with Lovenox * Consult case management and social media sr strategy manager to help with placement.
[2019-12-07] MEDS ORDERED: Sodium Hypochlorite 0.25% Soln 473 ML TOP PRN ×2 (14:20→14:29)
--- NOTE | 2019-12-07 14:39 | PCM.CONS ---
H&P History of Present Illness - General Date of Service: 12/07/19 Admit Problem/Dx: Admission Diagnosis/Problem Admission Diagnosis/Problem Urinary tract infection Source of Information: Patient History Limitations: Reports: No Limitations - History of Present Illness Initial Comments - Free Text/Narative: Patient admitted for rheumatoid arthritis flare up and was found to necrosis on her chronic bilateral lower extremity wounds. I was asked to evaluate. I recommended debridement. Onset of Symptoms: Reports: Gradual Duration of Symptoms: Reports: Getting Worse Location: Reports: Lower Extremity, Left, Lower Extremity, Right Quality: Reports: Sharp Severity: Moderate Improves with: Reports: None Worsens with: Reports: None Right Lower Back Pain Score (Numeric/FACES): 9 - Related Data Allergies/Adverse Reactions: Allergies Allergy/AdvReac Type Severity Reaction Status Date / Time adhesive Allergy Rash Verified 12/07/19 07:47 alginic acid Allergy Rash Verified 12/07/19 07:47 [From MediHoney (onesimo alginate-honey)] amikacin Allergy Hives Verified 12/07/19 07:47 clindamycin Allergy Rash Verified 12/07/19 07:47 honey Allergy Rash Verified 12/07/19 07:47 [From MediHoney (onesimo alginate-honey)] hydroxychloroquine Allergy Other Verified 12/07/19 07:47 [From Plaquenil] latex Allergy Hives Verified 12/07/19 07:47 NSAIDS (Non-Steroidal Allergy Rash Verified 12/07/19 07:47 Anti-Inflamma penicillamine Allergy Blisters Verified 12/07/19 07:47 [From Cuprimine] Penicillins Allergy Rash Verified 12/07/19 07:47 vancomycin Allergy Rash Verified 12/07/19 07:47 warfarin [From Coumadin] Allergy Itching Verified 12/07/19 07:47 daptomycin AdvReac Muscle Verified 12/07/19 11:38 Weakness green pepper AdvReac Diarrhea Verified 12/07/19 11:38 lactose AdvReac Diarrhea Verified 12/07/19 11:38 pentoxifylline [From Trental] AdvReac Nausea and Verified 12/07/19 11:38 Vomiting sulfamethoxazole AdvReac Nausea and Verified 12/07/19 11:38 [From Septra] Vomiting trimethoprim [From Septra] AdvReac Nausea and Verified 12/07/19 11:38 Vomiting Home Medications: Home Meds Cholecalciferol (Vitamin D3) [Vitamin D3] 2,000 unit PO DAILY 05/13/18 [History] Lutein 40 mg PO DAILY 05/13/18 [History] Methenamine Hippurate [Hiprex] 1 gm PO BID 05/13/18 [History] traZODone HCl [Trazodone HCl] 50 mg PO BEDTIME 05/13/18 [History] Acetaminophen [Tylenol] 650 mg PO Q4HR 12/06/19 [History] Alfuzosin HCl [Alfuzosin HCl ER] 10 mg PO DAILY 12/06/19 [History] Ascorbic Acid 500 mg PO BID 12/06/19 [History] Calcium Carbonate 500 mg PO Q4HR PRN 12/06/19 [History] Calcium Carbonate/Vitamin D3 [Calcium Carbonate/Vitamin D 600 MG-200 Unit] 1 tab PO BID 12/06/19 [History] Cetirizine [ZyrTEC] 10 mg PO DAILY 12/06/19 [History] Cholestyramine/Sucrose [Cholestyramine] 4 g PO DAILY 12/06/19 [History] Clobetasol Propionate [Temovate 0.05% Oint] 1 applic TOP BID PRN 12/06/19 [ History] Cranberry Fruit Concentrate [Cranberry] 450 mg PO BID 12/06/19 [History] Diclofenac/Hyaluronate/Niacin [Diclofen 3%-Hyaluron 2%-Niac4%] 2 gm TOP BID PRN 12/06/19 [History] Ferrous Sulfate 325 mg PO DAILY 12/06/19 [History] Folic Acid 1 mg PO DAILY 12/06/19 [History] Hydrocortisone [Hydrocortisone 1% Crm] 1 applic TOP TID PRN 12/06/19 [History] Lidocaine 5% [Lidoderm 5%] 1 patch TOP DAILY 12/06/19 [History] Loperamide [Imodium AD] 2 mg PO DAILY PRN 12/06/19 [History] Lycopene 10 mg PO DAILY 12/06/19 [History] Magnesium Oxide 400 mg PO BID 12/06/19 [History] Methotrexate Sodium [Methotrexate] 17.5 mg PO ASDIRECTED 12/06/19 [History] Multivitamin [Multivitamins] 1 tab PO DAILY 12/06/19 [History] Non-Formulary Medication [NF Drug] 2 scoop PO DAILY 12/06/19 [History] Nystatin [Nystatin Crm] 1 applic TOP BID PRN 12/06/19 [History] Nystatin [Nystop] 1 applic TOP BID PRN 12/06/19 [History] Ondansetron [Zofran ODT] 1 tab PO Q6HR PRN 12/06/19 [History] Pantoprazole Sodium [Protonix] 40 mg PO DAILY 12/06/19 [History] Sodium Hypochlorite [Anasept] 1 inch TOP DAILY 12/06/19 [History] Zoledronic Acid in Water [Reclast] 5 mg .ROUTE ASDIRECTED 12/06/19 [History] diphenhydrAMINE [Benadryl] 25 mg PO Q4HR PRN 12/06/19 [History] hydrOXYzine HCL [Hydroxyzine HCl] 10 mg PO TID 12/06/19 [History] oxyCODONE 5 mg PO QID 12/06/19 [History] predniSONE [Prednisone] 6 mg PO DAILY 12/06/19 [History] rOPINIRole [Requip] 0.5 mg PO BEDTIME 12/06/19 [History] Past Medical History HEENT History: Reports: Other (See Below) Other HEENT History: wears glasses Cardiovascular History: Reports: Hypertension Other Cardiovascular History: pt states no hx of HTN Gastrointestinal History: Reports: GERD Genitourinary History: Reports: Renal Disease Musculoskeletal History: Reports: RA, Other (See Below) Other Musculoskeletal History: broke both of knees, broke four ribs, 3 hip replacements, broke pelvic bone, broke left hand, broke collar bone, bunyonectomy bilateral feet Endocrine/Metabolic History: Reports: Diabetes, Type II Hematologic History: Reports: Folic Acid Dermatologic History: Reports: Other (See Below) Other Dermatologic History: ulcers to bilateral legs - Infectious Disease History Infectious Disease History: Reports: Chicken Pox, Measles, MRSA, Other (See Below) Other Infectious Disease History: pt states hx of mrsa in feet in 1985 and 2014 - Past Surgical History GI Surgical History: Reports: None Social & Family History - Family History Family Medical History: Noncontributory - Tobacco Use Smoking Status *Q: Never Smoker Used Tobacco, but Quit: Yes Month/Year Tobacco Last Used: 2009 - Caffeine Use Caffeine Use: Reports: None - Recreational Drug Use Recreational Drug Use: No H&P Review of Systems - Review of Systems: Review Of Systems: See Below General: Reports: Weakness HEENT: Reports: No Symptoms Pulmonary: Reports: No Symptoms Cardiovascular: Reports: No Symptoms Gastrointestinal: Reports: No Symptoms Musculoskeletal: Reports: Back Pain, Joint Pain, Muscle Stiffness Skin: Reports: Wound Exam - Exam Exam: See Below - Vital Signs Vital Signs: Last Vital Signs Temp 98.8 F 12/07/19 12:01 Pulse 76 12/07/19 12:01 Resp 18 12/07/19 12:01 BP 109/58 L 12/07/19 12:01 Pulse Ox 94 L 12/07/19 12:01 Weight: 87.543 kg - Exam General: Alert, Oriented, Cooperative Lungs: Clear to Auscultation, Normal Respiratory Effort Cardiovascular: Regular Rate, Regular Rhythm, Normal S1, Normal S2 Skin: Other (large wounds in bilateral ankles. there are patchy escars. ) - Patient Data Lab Results Last 24 hrs: Laboratory Results - last 24 hr 12/06/19 12/06/19 12/06/19 Range/Units 13:23 15:44 18:50 WBC (3.98-10.04) K/mm3 RBC (3.98-5.22) M/mm3 Hgb (11.2-15.7) gm/dl Hct (34.1-44.9) % MCV (79.4-94.8) fl MCH (25.6-32.2) pg MCHC (32.2-35.5) g/dl RDW Std Deviation (36.4-46.3) fL Plt Count (182-369) K/mm3 MPV (9.4-12.3) fl Neut % (Auto) (34.0-71.1) % Lymph % (Auto) (19.3-51.7) % Lares % (Auto) (4.7-12.5) % Eos % (Auto) (0.7-5.8) Baso % (Auto) (0.1-1.2) % Neut # (Auto) (1.56-6.13) K/mm3 Lymph # (Auto) (1.18-3.74) K/mm3 Lares # (Auto) (0.24-0.36) K/mm3 Eos # (Auto) (0.04-0.36) K/mm3 Baso # (Auto) (0.01-0.08) K/mm3 Manual Slide Review Sodium 144 (136-145) mEq/L Potassium 4.4 (3.5-5.1) mEq/L Chloride 110 H (98-107) mEq/L Carbon Dioxide 21 (21-32) mEq/L Anion Gap 17.4 H (5-15) BUN 24 H (7-18) mg/dL Creatinine 1.1 H (0.55-1.02) mg/dL Est Cr Clr Drug Dosing 46.49 mL/min Estimated GFR (MDRD) 50 (>60) mL/min BUN/Creatinine Ratio 21.8 H (14-18) Glucose 89 (80-115) mg/dL Calcium 7.9 L (8.5-10.1) mg/dL Magnesium (1.8-2.4) mg/dl Total Bilirubin 1.0 (0.2-1.0) mg/dL AST 18 (15-37) U/L ALT 17 (14-59) U/L Alkaline Phosphatase 79 (46-116) U/L C-Reactive Protein 5.1 H* (<1.0) mg/dL Total Protein 6.8 (6.4-8.2) g/dl Albumin 2.3 L (3.4-5.0) g/dl Globulin 4.5 gm/dL Albumin/Globulin Ratio 0.5 L (1-2) Urine Color Yellow (Yellow) Urine Appearance Slt cloudy H (Clear) Urine pH 6.0 (5.0-8.0) Ur Specific [place] 1.025 (1.005-1.030) Urine Protein Trace H (Negative) Urine Glucose (UA) Negative (Negative) Urine Ketones Negative (Negative) Urine Occult Blood Trace-intact H (Negative) Urine Nitrite Positive H (Negative) Urine Bilirubin Negative (Negative) Urine Urobilinogen 0.2 (0.2-1.0) Ur Leukocyte Esterase 1+ H (Negative) Urine RBC 5-10 H (0-5) /hpf Urine WBC 50-75 H (0-5) /hpf Ur Squamous Epith Cells 0-5 (0-5) /hpf Urine Bacteria Many H (FEW) /hpf Urine Mucus Not seen (FEW) /hpf MRSA (PCR) Positive H 12/07/19 12/07/19 Range/Units 06:35 06:35 WBC 12.20 H (3.98-10.04) K/mm3 RBC 3.42 L (3.98-5.22) M/mm3 Hgb 10.3 L (11.2-15.7) gm/dl Hct 33.9 L (34.1-44.9) % MCV 99.1 H (79.4-94.8) fl MCH 30.1 (25.6-32.2) pg MCHC 30.4 L (32.2-35.5) g/dl RDW Std Deviation 61.5 H (36.4-46.3) fL Plt Count 324 (182-369) K/mm3 MPV 9.2 L (9.4-12.3) fl Neut % (Auto) 94.0 H (34.0-71.1) % Lymph % (Auto) 4.6 L (19.3-51.7) % Lares % (Auto) 1.1 L (4.7-12.5) % Eos % (Auto) 0 L (0.7-5.8) Baso % (Auto) 0.1 (0.1-1.2) % Neut # (Auto) 11.46 H (1.56-6.13) K/mm3 Lymph # (Auto) 0.56 L (1.18-3.74) K/mm3 Lares # (Auto) 0.14 L (0.24-0.36) K/mm3 Eos # (Auto) 0.00 L (0.04-0.36) K/mm3 Baso # (Auto) 0.01 (0.01-0.08) K/mm3 Manual Slide Review Abnormal smear Sodium 142 (136-145) mEq/L Potassium 4.2 (3.5-5.1) mEq/L Chloride 109 H (98-107) mEq/L Carbon Dioxide 16 L (21-32) mEq/L Anion Gap 21.2 H (5-15) BUN 26 H (7-18) mg/dL Creatinine 1.1 H (0.55-1.02) mg/dL Est Cr Clr Drug Dosing 46.49 mL/min Estimated GFR (MDRD) 50 (>60) mL/min BUN/Creatinine Ratio 23.6 H (14-18) Glucose 109 (80-115) mg/dL Calcium 7.5 L (8.5-10.1) mg/dL Magnesium 1.6 L (1.8-2.4) mg/dl Total Bilirubin 0.6 (0.2-1.0) mg/dL AST 16 (15-37) U/L ALT 15 (14-59) U/L Alkaline Phosphatase 66 (46-116) U/L C-Reactive Protein 10.1 H* (<1.0) mg/dL Total Protein 6.3 L (6.4-8.2) g/dl Albumin 2.0 L (3.4-5.0) g/dl Globulin 4.3 gm/dL Albumin/Globulin Ratio 0.5 L (1-2) Urine Color (Yellow) Urine Appearance (Clear) Urine pH (5.0-8.0) Ur Specific [place] (1.005-1.030) Urine Protein (Negative) Urine Glucose (UA) (Negative) Urine Ketones (Negative) Urine Occult Blood (Negative) Urine Nitrite (Negative) Urine Bilirubin (Negative) Urine Urobilinogen (0.2-1.0) Ur Leukocyte Esterase (Negative) Urine RBC (0-5) /hpf Urine WBC (0-5) /hpf Ur Squamous Epith Cells (0-5) /hpf Urine Bacteria (FEW) /hpf Urine Mucus (FEW) /hpf MRSA (PCR) Result Diagrams: 12/07/19 06:35 12/07/19 06:35 Corey Results Last 24 hrs: Microbiology 12/06/19 13:40 Aerobic Blood Culture - Preliminary Blood - Venous NO GROWTH AFTER 1 DAY Anaerobic Blood Culture - Preliminary NO GROWTH AFTER 1 DAY 12/06/19 13:23 Aerobic Blood Culture - Preliminary Blood - Venous - Lab Draw NO GROWTH AFTER 1 DAY Anaerobic Blood Culture - Preliminary NO GROWTH AFTER 1 DAY 12/06/19 16:47 Anaerobic Culture - Preliminary Ankle, Unspecified Gram Negative Rods Sepsis Event Note - Evaluation Sepsis Screening Result: No Definite Risk - Focused Exam Vital Signs: Vital Signs Temp Pulse Resp BP Pulse Ox 12/07/19 12:01 98.8 F 76 18 109/58 L 94 L 12/07/19 08:47 97.5 F 80 116/54 L 95 12/07/19 03:39 97.5 F 84 18 112/64 94 L Date Exam was Performed: 12/07/19 Time Exam was Performed: 14:34 Consult PN Assessment/Plan Procedures: Procedures ASSAY OF LACTIC ACID (05/13/18) ASSAY OF MAGNESIUM (05/13/18) ASSAY OF NATRIURETIC PEPTIDE (05/13/18) ASSAY OF TROPONIN QUANT (05/13/18) BL SMEAR W/DIFF WBC COUNT (09/17/18) BLOOD CULTURE FOR BACTERIA (09/17/18) C-REACTIVE PROTEIN (09/17/18) COMPLETE CBC AUTOMATED (09/17/18) COMPLETE CBC W/AUTO DIFF WBC (05/13/18) COMPREHEN METABOLIC PANEL (09/17/18) CULTURE AEROBIC IDENTIFY (05/13/18) CULTURE OTHR SPECIMN AEROBIC (09/10/19) ELECTROCARDIOGRAM TRACING (05/13/18) EMERGENCY DEPT VISIT (09/17/18) EMERGENCY DEPT VISIT (05/13/18) GLUCOSE BLOOD TEST (05/13/18) HYDRATE IV INFUSION ADD-ON (05/13/18) INSERT TEMP BLADDER CATH (05/13/18) MICROBE SUSCEPTIBLE COREY (05/13/18) PROTHROMBIN TIME (05/13/18) ROUTINE VENIPUNCTURE (09/17/18) THER/PROPH/DIAG IV INF INIT (09/17/18) THROMBOPLASTIN TIME PARTIAL (05/13/18) TOTAL CORTISOL (04/25/18) TX/PRO/DX INJ NEW DRUG ADDON (05/13/18) URINALYSIS AUTO W/SCOPE (05/13/18) URINE BACTERIA CULTURE (05/13/18) URINE CULTURE/COLONY COUNT (08/29/18) X-RAY EXAM CHEST 1 VIEW (05/13/18) Problem List Initiated/Reviewed/Updated: No My Orders Last 24 Hours: My Active Orders 12/07/19 14:25 Communication Order [RC] BID Plan: Patient has eschars on her chronic wounds. I recommended debridement. This was done at bedside. Patient tolerated well. - Start BID wet to dry with dakins-soaked gauze for 3 days and resume wet to dry dressings.
--- NOTE | 2019-12-07 14:45 | PCM.PRNOTE ---
- Free Text/Narrative Note: Procedure: Excisional debridement of bilateral ankle wounds. Indication: Eschars on the wounds hindering wound healing. Details: Patient was premedicated with dilaudid and using scissors and forceps the eschars were sharply excised from the wounds. No blood loss. Some protein exudate was left in place and will be debrided with dressing changes. 2 eschar measuring 4 xm x 3cm and 3 cm x 3 cm were removed from the left wound and one eschar measuring 4 cm x 5 cm was removed from the right wound. The wound was re- packed and dressed at the end of debridement. Plan is to start BID packing with dakins-soaked solution.
[2019-12-07] MEDS: rOPINIRole 0.25 MG Tab PO SCH (20:44)
[2019-12-07] MEDS: Loperamide 2 MG Cap PO PRN (22:59)
[2019-12-08] MEDS: Acetaminophen 325 MG Tab PO PRN ×4 (04:15→21:19)
[2019-12-08] MEDS: oxyCODONE 5 MG Tab PO PRN ×4 (04:15→21:19)
[2019-12-08] MEDS: Dextrose 5%-0.45% NaCl 1,000 ML IV SCH ×2 (05:42→18:24)
[2019-12-08] MEDS: Pantoprazole 40 MG Tab.CR PO SCH (05:42)
[2019-12-08] MEDS: predniSONE 20 MG Tab PO SCH (08:43)
[2019-12-08] MEDS: Linezolid 600 MG in Premix Bag 1 BAG IV SCH ×2 (08:43→21:18)
[2019-12-08] MEDS: hydrOXYzine HCl 10 MG Tab PO SCH ×3 (08:45→22:57)
[2019-12-08] MEDS: Calcium Carbonate/Vitamin D3 600 MG-200 Units Tab PO SCH ×2 (08:48→21:18)
[2019-12-08] MEDS: Ferrous Sulfate 324 MG Tab.EC PO SCH (08:48)
[2019-12-08] MEDS: Folic Acid 1 MG Tab PO SCH (08:48)
[2019-12-08] MEDS: Ascorbic Acid 500 MG Tab PO SCH ×2 (08:48→21:18)
[2019-12-08] MEDS: Enoxaparin 40 MG/0.4 ML Syringe SUBCUT SCH (08:49)
[2019-12-08] MEDS ORDERED: Potassium Chloride 20 MEQ Tab.ER PO ONE ×2 (09:51→21:00)
[2019-12-08] MEDS: Loperamide 2 MG Cap PO PRN ×2 (10:06→21:19)
[2019-12-08] MEDS: Cefepime 2 GM in Premix Bag 1 BAG IV SCH ×2 (10:07→23:42)
[2019-12-08] MEDS: Nystatin Topical Powder 15 GM Bottle TOP PRN (14:40)
--- NOTE | 2019-12-08 16:32 | PCM.PN ---
- General Info Date of Service: 12/08/19 Admission Dx/Problem (Free Text): Admission Diagnosis/Problem Admission Diagnosis/Problem Urinary tract infection Subjective Update: She had debridement done yesterday. She is not tolerating Dakin's soaked dressing because of pain. Increased her pain medications overnight to Percocet 5/325 mg 1-2 tabs every 4 hours as needed pain. She is feeling much better in regards to the right-sided back pain and arm pain. She only has 2 small areas of numbness on the right first DIP and fourth DIP. Functional Status: Denies: Pain Controlled - Review of Systems General: Reports: No Symptoms HEENT: Reports: No Symptoms Pulmonary: Reports: No Symptoms Cardiovascular: Reports: No Symptoms Gastrointestinal: Reports: No Symptoms Musculoskeletal: Reports: No Symptoms - Patient Data Vitals - Most Recent: Last Vital Signs Temp 97.5 F 12/08/19 15:20 Pulse 64 12/08/19 15:20 Resp 20 12/08/19 15:20 BP 81/51 L 12/08/19 15:20 Pulse Ox 98 12/08/19 15:20 Weight - Most Recent: 194 lb 4.8 oz I&O - Last 24 Hours: Intake & Output 12/08/19 12/08/19 12/08/19 06:59 14:59 22:59 Intake Total 8028 037 3489 Balance 5909 [id number] [id number] Lab Results Last 24 Hours: Laboratory Results - last 24 hr 12/08/19 12/08/19 Range/Units 05:37 05:37 WBC 10.79 H (3.98-10.04) K/mm3 RBC 3.01 L (3.98-5.22) M/mm3 Hgb 9.2 L (11.2-15.7) gm/dl Hct 29.4 L (34.1-44.9) % MCV 97.7 H (79.4-94.8) fl MCH 30.6 (25.6-32.2) pg MCHC 31.3 L (32.2-35.5) g/dl RDW Std Deviation 57.7 H (36.4-46.3) fL Plt Count 299 (182-369) K/mm3 MPV 9.2 L (9.4-12.3) fl Neut % (Auto) 83.2 H (34.0-71.1) % Lymph % (Auto) 11.4 L (19.3-51.7) % [place] % (Auto) 4.4 L (4.7-12.5) % Eos % (Auto) 0.7 (0.7-5.8) Baso % (Auto) 0.1 (0.1-1.2) % Neut # (Auto) 8.97 H (1.56-6.13) K/mm3 Lymph # (Auto) 1.23 (1.18-3.74) K/mm3 [place] # (Auto) 0.48 H (0.24-0.36) K/mm3 Eos # (Auto) 0.08 (0.04-0.36) K/mm3 Baso # (Auto) 0.01 (0.01-0.08) K/mm3 Sodium 139 (136-145) mEq/L Potassium 3.2 L (3.5-5.1) mEq/L Chloride 108 H (98-107) mEq/L Carbon Dioxide 18 L (21-32) mEq/L Anion Gap 16.2 H (5-15) BUN 31 H (7-18) mg/dL Creatinine 1.3 H (0.55-1.02) mg/dL Est Cr Clr Drug Dosing 39.34 mL/min Estimated GFR (MDRD) 41 (>60) mL/min BUN/Creatinine Ratio 23.8 H (14-18) Glucose 108 (80-115) mg/dL Calcium 7.2 L (8.5-10.1) mg/dL Magnesium 2.6 H (1.8-2.4) mg/dl Total Bilirubin 0.2 (0.2-1.0) mg/dL AST 14 L (15-37) U/L ALT 13 L (14-59) U/L Alkaline Phosphatase 68 (46-116) U/L C-Reactive Protein 4.3 H* (<1.0) mg/dL Total Protein 6.0 L (6.4-8.2) g/dl Albumin 1.9 L (3.4-5.0) g/dl Globulin 4.1 gm/dL Albumin/Globulin Ratio 0.5 L (1-2) Corey Results Last 24 Hours: Microbiology 12/06/19 16:47 Gram Stain - Final Ankle, Unspecified Anaerobic Culture - Preliminary Pseudomonas Aeruginosa Gram Positive Cocci#2 Gram Positive Cocci#3 Gram Positive Cocci 12/07/19 10:50 Urine Culture - Preliminary Urine, Clean Catch Gram Negative Rods 12/06/19 13:40 Aerobic Blood Culture - Preliminary Blood - Venous NO GROWTH AFTER 2 DAYS Anaerobic Blood Culture - Preliminary NO GROWTH AFTER 2 DAYS 12/06/19 13:23 Aerobic Blood Culture - Preliminary Blood - Venous - Lab Draw NO GROWTH AFTER 2 DAYS Anaerobic Blood Culture - Preliminary NO GROWTH AFTER 2 DAYS Med Orders - Current: Current Medications Acetaminophen (Tylenol) 650 mg PO Q4H PRN PRN Reason: Pain (Mild 1-3)/fever Last Admin: 12/08/19 08:46 Dose: 650 mg Ascorbic Acid (Vitamin C) 500 mg PO BID [facility] Last Admin: 12/08/19 08:48 Dose: 500 mg Calcium Carbonate (Calcium Carbonate/Vitamin D 600 Mg-200 Unit) 1 tab PO BID [facility] Last Admin: 12/08/19 08:48 Dose: 1 tab Diphenhydramine HCl (Benadryl) 25 mg PO Q4HR PRN PRN Reason: Other Enoxaparin Sodium (Lovenox) 40 mg SUBCUT DAILY [facility] Last Admin: 12/08/19 08:49 Dose: 40 mg Ferrous Sulfate (Ferrous Sulfate) 324 mg PO DAILY [facility] Last Admin: 12/08/19 08:48 Dose: 324 mg Folic Acid (Folic Acid) 1 mg PO DAILY [facility] Last Admin: 12/08/19 08:48 Dose: 1 mg Hydromorphone HCl (Dilaudid) 0.5 mg IVPUSH Q2H PRN PRN Reason: Pain (severe 7-10) Last Admin: 12/07/19 13:33 Dose: 0.5 mg Hydroxyzine HCl (Atarax) 10 mg PO TID [facility] Last Admin: 12/08/19 14:38 Dose: 10 mg Linezolid 600 mg/ Premix 300 mls @ 300 mls/hr IV Q12H [facility] Last Admin: 12/08/19 08:43 Dose: 300 mls/hr Cefepime HCl 2 gm/ Premix 50 mls @ 100 mls/hr IV Q12H [facility] Last Admin: 12/08/19 10:07 Dose: 100 mls/hr Dextrose/Sodium Chloride (Dextrose 5%-1/2 Ns) 1,000 mls @ 75 mls/hr IV ASDIRECTED [facility] Loperamide HCl (Imodium) 2 mg PO TID PRN PRN Reason: Diarrhea Loperamide HCl (Imodium) 4 mg PO BEDTIME PRN PRN Reason: Diarrhea Melatonin (Melatonin) 6 mg PO BEDTIME [facility] Nystatin (Nystop) 0 gm TOP BID PRN PRN Reason: Itching Last Admin: 12/08/19 14:40 Dose: 1 applic Ondansetron HCl (Zofran Odt) 4 mg PO Q6HR PRN PRN Reason: Nausea/Vomiting Oxycodone HCl (Oxycodone) 5 - 10 mg PO Q4H PRN PRN Reason: Pain Last Admin: 12/08/19 08:47 Dose: 10 mg Pantoprazole Sodium (Protonix) 40 mg PO ACBREAKFAST [facility] Last Admin: 12/08/19 05:42 Dose: 40 mg Potassium Chloride (Klor-Con M20) 20 meq PO ONETIME ONE Stop: 12/08/19 21:01 Prednisone (Prednisone) 20 mg PO WITHBREAKFAST [facility] Last Admin: 12/08/19 08:43 Dose: 20 mg Ropinirole HCl (Requip) 0.5 mg PO BEDTIME [facility] Last Admin: 12/07/19 20:44 Dose: 0.5 mg Sodium Chloride (Saline Flush) 10 ml FLUSH ASDIRECTED PRN PRN Reason: Keep Vein Open Last Admin: 12/06/19 13:53 Dose: 10 ml Sodium Hypochlorite (Dakin's 1/2 Strength) 0 ml TOP ASDIRECTED PRN PRN Reason: WOUND CARE Discontinued Medications Cholestyramine Resin (Cholestyramine Packet) 4 gm PO DAILY [facility] Last Admin: 12/07/19 09:01 Dose: Not Given Hydromorphone HCl (Dilaudid) 0.5 mg IVPUSH ONETIME ONE Stop: 12/06/19 12:53 Last Admin: 12/06/19 13:46 Dose: 0.5 mg Hydromorphone HCl (Dilaudid) 0.5 mg IVPUSH ONETIME ONE Stop: 12/06/19 16:30 Last Admin: 12/06/19 16:43 Dose: 0.5 mg Sodium Chloride (Normal Saline) 1,000 mls @ 150 mls/hr IV ASDIRECTED [facility] Last Admin: 12/06/19 20:50 Dose: 150 mls/hr Ceftriaxone Sodium 1 gm/ (Sodium Chloride) 100 mls @ 200 mls/hr IV ONETIME ONE Stop: 12/06/19 16:57 Last Admin: 12/06/19 16:43 Dose: 200 mls/hr Dextrose/Sodium Chloride (Dextrose 5%-1/2 Ns) 1,000 mls @ 100 mls/hr IV ASDIRECTED [facility] Last Admin: 12/08/19 05:42 Dose: 100 mls/hr Magnesium Sulfate 4 gm/ Premix 50 mls @ 12.5 mls/hr IV ONETIME ONE Stop: 12/07/19 14:59 Last Admin: 12/07/19 12:03 Dose: 12.5 mls/hr Linezolid (Zyvox) Confirm Administered Dose 300 mls @ as directed .ROUTE .STK- MED ONE Stop: 12/07/19 20:14 Last Admin: 12/07/19 20:38 Dose: Not Given Linezolid (Zyvox) Confirm Administered Dose 300 mls @ as directed .ROUTE .STK- MED ONE Stop: 12/07/19 20:21 Last Admin: 12/07/19 20:38 Dose: Not Given Loperamide HCl (Imodium) 2 mg PO DAILY PRN PRN Reason: Diarrhea Last Admin: 12/08/19 10:06 Dose: 2 mg Nystatin (Nystatin Crm) gm TOP BID PRN PRN Reason: Itching Oxycodone HCl (Oxycodone) 5 mg PO QID PRN PRN Reason: Pain Last Admin: 12/08/19 04:15 Dose: 5 mg Potassium Chloride (Klor-Con M20) 40 meq PO ONETIME ONE Stop: 12/08/19 09:52 Last Admin: 12/08/19 10:06 Dose: 40 meq Prednisone (Prednisone) 40 mg PO ONETIME ONE Stop: 12/06/19 21:16 Last Admin: 12/06/19 21:14 Dose: 40 mg Sodium Hypochlorite (Dakin's 1/2 Strength) 0 ml TOP ASDIRECTED PRN PRN Reason: WOUND CARE Trazodone HCl (Trazodone) 50 mg PO BEDTIME [facility] Last Admin: 12/06/19 21:15 Dose: 50 mg - Exam General: Alert, Oriented HEENT: Pupils Equal Neck: Supple Lungs: Clear to Auscultation, Normal Respiratory Effort Cardiovascular: Regular Rate, Regular Rhythm GI/Abdominal Exam: Normal Bowel Sounds, Soft, Non-Tender, No Organomegaly, No Distention Wound/Incisions: Healing Well Sepsis Event Note - Evaluation Sepsis Screening Result: No Definite Risk - Focused Exam Vital Signs: Vital Signs Temp Pulse Resp BP BP Pulse Ox 12/08/19 15:20 97.5 F 64 20 81/51 L 98 12/08/19 12:51 97.7 F 79 18 103/67 98 12/08/19 08:00 114/76 12/08/19 07:44 97.3 F 68 20 126/99 H 100 Date Exam was Performed: 12/08/19 Time Exam was Performed: 16:27 - Problem List Review Problem List Initiated/Reviewed/Updated: Yes - My Orders Last 24 Hours: My Active Orders 12/08/19 08:04 oxyCODONE 5 - 10 mg PO Q4H PRN 12/08/19 10:00 Dextrose 5%-0.45% NaCl [Dextrose 5%-1/2 NS] 1,000 ml IV ASDIRECTED 12/08/19 11:10 Loperamide [Imodium] 2 mg PO TID PRN 12/08/19 21:00 Loperamide [Imodium] 4 mg PO BEDTIME PRN Melatonin 6 mg PO BEDTIME Potassium Chloride [Klor-Con M20] 20 meq PO ONETIME ONE - Plan Plan:: Assessment 64-year-old female with rheumatoid arthritis and chronic lower extremity ulcers with acute flare of rheumatoid arthritis * Patient is developed significant pain and weakness secondary to a flare * Pain is much improved after prednisone 40 mg on 12/06/2019 * Now on prednisone 20 mg daily * Significant improvement in symptoms Lower extremity ulcers with thickened necrotic centers treated by sharp debridement by Dr. Marmolejo * Cultures of ankle wound growing gram-negative rods and gram-positive cocci * cefepime and linezolid * Patient reportedly recently seen by plastic surgery, but report not available * C-reactive protein of 5.1- 10.1-->4.3 * Dr. Marmolejo in surgery consulted Complicated UTI * Patient has urinary retention and self catheterizes. * Patient has had multiple infections most, recently August 2019, positive for Pseudomonas and enterococcus. Pseudomonas was sensitive to cefepime but at a COREY of 8. Enterococcus was sensitive to the Nasalide. * She is allergic to penicillin and vancomycin and is MRSA positive. * Positive nitrites on UA with 50-70 WBCs per high-power field * WBC 9.16 --> 12.2 (steroid effect)-->10.79 * AG 21-->16.2 Chronic renal insufficiency * Stage III chronic renal sufficiency with an estimated GFR of 50, which is stable from since August 2018 * BUN 31, creatinine 1.3, GFR 41 Plan * Admit to medical floor * Physical therapy for wound care and ambulation * Occupational Therapy * Awaiting culture and sensitivities on wound culture * Continue prednisone 20 mg every morning for rheumatoid flare * Urine culture and blood cultures * Continue IV fluids D5 half-normal saline at 75 mL an hour. Nursing reports poor oral intake of fluids. * Reconcile home meds * Recheck CBC, CMP, and magnesium in the morning * CODE STATUS: Full code * VTE prophylaxis with Lovenox * Consult case management and social media designer to help with placement.
[2019-12-08] MEDS: rOPINIRole 0.25 MG Tab PO SCH (21:17)
[2019-12-08] MEDS: Melatonin 3 MG Tab PO SCH (21:18)
[2019-12-09] MEDS: Acetaminophen 325 MG Tab PO PRN ×3 (03:05→21:50)
[2019-12-09] MEDS: oxyCODONE 5 MG Tab PO PRN ×3 (03:05→21:51)
[2019-12-09] MEDS: Pantoprazole 40 MG Tab.CR PO SCH (05:50)
[2019-12-09] MEDS: Linezolid 600 MG in Premix Bag 1 BAG IV SCH (08:38)
[2019-12-09] MEDS: predniSONE 20 MG Tab PO SCH (08:40)
[2019-12-09] MEDS: Ferrous Sulfate 324 MG Tab.EC PO SCH (08:40)
[2019-12-09] MEDS: hydrOXYzine HCl 10 MG Tab PO SCH ×3 (08:40→21:50)
[2019-12-09] MEDS: Ascorbic Acid 500 MG Tab PO SCH ×2 (08:41→21:50)
[2019-12-09] MEDS: Calcium Carbonate/Vitamin D3 600 MG-200 Units Tab PO SCH ×2 (08:41→21:50)
[2019-12-09] MEDS: Loperamide 2 MG Cap PO PRN ×3 (08:41→21:51)
[2019-12-09] MEDS: Folic Acid 1 MG Tab PO SCH (08:41)
[2019-12-09] MEDS: Enoxaparin 40 MG/0.4 ML Syringe SUBCUT SCH (08:43)
[2019-12-09] MEDS: Nystatin Topical Powder 15 GM Bottle TOP PRN (08:44)
[2019-12-09] MEDS: Dextrose 5%-0.45% NaCl 1,000 ML IV SCH (09:34)
[2019-12-09] MEDS: Cefepime 2 GM in Premix Bag 1 BAG IV SCH (11:02)
--- NOTE | 2019-12-09 14:24 | PCM.PN ---
- General Info Date of Service: 12/09/19 Admission Dx/Problem (Free Text): Admission Diagnosis/Problem Admission Diagnosis/Problem Urinary tract infection - Patient Data Vitals - Most Recent: Last Vital Signs Temp 97.3 F 12/09/19 08:02 Pulse 58 L 12/09/19 08:02 Resp 16 12/09/19 08:02 BP 121/56 L 12/09/19 08:02 Pulse Ox 100 12/09/19 08:02 Weight - Most Recent: 207 lb 1.6 oz I&O - Last 24 Hours: Intake & Output 12/08/19 12/09/19 12/09/19 22:59 06:59 14:59 Intake Total 1905 1050 Balance 1905 1050 Lab Results Last 24 Hours: Laboratory Results - last 24 hr 12/09/19 Range/Units 09:31 Sodium 140 (136-145) mEq/L Potassium 3.9 (3.5-5.1) mEq/L Chloride 110 H (98-107) mEq/L Carbon Dioxide 18 L (21-32) mEq/L Anion Gap 15.9 H (5-15) BUN 22 H (7-18) mg/dL Creatinine 1.2 H (0.55-1.02) mg/dL Est Cr Clr Drug Dosing 42.62 mL/min Estimated GFR (MDRD) 45 (>60) mL/min BUN/Creatinine Ratio 18.3 H (14-18) Glucose 146 H (80-115) mg/dL Calcium 7.0 L (8.5-10.1) mg/dL Magnesium 2.2 (1.8-2.4) mg/dl Corey Results Last 24 Hours: Microbiology 12/06/19 13:40 Aerobic Blood Culture - Preliminary Blood - Venous NO GROWTH AFTER 3 DAYS Anaerobic Blood Culture - Preliminary NO GROWTH AFTER 3 DAYS 12/06/19 13:23 Aerobic Blood Culture - Preliminary Blood - Venous - Lab Draw NO GROWTH AFTER 3 DAYS Anaerobic Blood Culture - Preliminary NO GROWTH AFTER 3 DAYS 12/06/19 16:47 Gram Stain - Final Ankle, Unspecified Anaerobic Culture - Preliminary Pseudomonas Aeruginosa Staphylococcus Aureus (Mrsa) Staphylococcus Aureus Gram Positive Cocci#3 Streptococcus Mitis/Oralis Streptococcus Anginosus 12/07/19 10:50 Urine Culture - Final Urine, Clean Catch Escherichia Coli Med Orders - Current: Current Medications Acetaminophen (Tylenol) 650 mg PO Q4H PRN PRN Reason: Pain (Mild 1-3)/fever Last Admin: 12/09/19 08:43 Dose: 650 mg Ascorbic Acid (Vitamin C) 500 mg PO BID [facility] Last Admin: 12/09/19 08:41 Dose: 500 mg Calcium Carbonate (Calcium Carbonate/Vitamin D 600 Mg-200 Unit) 1 tab PO BID [facility] Last Admin: 12/09/19 08:41 Dose: 1 tab Cephalexin (Keflex) 500 mg PO Q6HR [facility] Diphenhydramine HCl (Benadryl) 25 mg PO Q4HR PRN PRN Reason: Other Enoxaparin Sodium (Lovenox) 40 mg SUBCUT DAILY [facility] Last Admin: 12/09/19 08:43 Dose: 40 mg Ferrous Sulfate (Ferrous Sulfate) 324 mg PO DAILY [facility] Last Admin: 12/09/19 08:40 Dose: 324 mg Folic Acid (Folic Acid) 1 mg PO DAILY [facility] Last Admin: 12/09/19 08:41 Dose: 1 mg Hydromorphone HCl (Dilaudid) 0.5 mg IVPUSH Q2H PRN PRN Reason: Pain (severe 7-10) Last Admin: 12/07/19 13:33 Dose: 0.5 mg Hydroxyzine HCl (Atarax) 10 mg PO TID [facility] Last Admin: 12/09/19 08:40 Dose: 10 mg Loperamide HCl (Imodium) 2 mg PO TID PRN PRN Reason: Diarrhea Last Admin: 12/09/19 08:41 Dose: 2 mg Loperamide HCl (Imodium) 4 mg PO BEDTIME PRN PRN Reason: Diarrhea Last Admin: 12/08/19 21:19 Dose: 4 mg Melatonin (Melatonin) 6 mg PO BEDTIME [facility] Last Admin: 12/08/19 21:18 Dose: 6 mg Nystatin (Nystop) 0 gm TOP BID PRN PRN Reason: Itching Last Admin: 12/09/19 08:44 Dose: 1 applic Ondansetron HCl (Zofran Odt) 4 mg PO Q6HR PRN PRN Reason: Nausea/Vomiting Oxycodone HCl (Oxycodone) 5 - 10 mg PO Q4H PRN PRN Reason: Pain Last Admin: 12/09/19 08:41 Dose: 10 mg Pantoprazole Sodium (Protonix) 40 mg PO ACBREAKFAST [facility] Last Admin: 12/09/19 05:50 Dose: 40 mg Prednisone (Prednisone) 20 mg PO WITHBREAKFAST [facility] Last Admin: 12/09/19 08:40 Dose: 20 mg Ropinirole HCl (Requip) 0.5 mg PO BEDTIME [facility] Last Admin: 12/08/19 21:17 Dose: 0.5 mg Sodium Chloride (Saline Flush) 10 ml FLUSH ASDIRECTED PRN PRN Reason: Keep Vein Open Last Admin: 12/06/19 13:53 Dose: 10 ml Sodium Hypochlorite (Dakin's 1/2 Strength) 0 ml TOP ASDIRECTED PRN PRN Reason: WOUND CARE Discontinued Medications Cholestyramine Resin (Cholestyramine Packet) 4 gm PO DAILY [facility] Last Admin: 12/07/19 09:01 Dose: Not Given Hydromorphone HCl (Dilaudid) 0.5 mg IVPUSH ONETIME ONE Stop: 12/06/19 12:53 Last Admin: 12/06/19 13:46 Dose: 0.5 mg Hydromorphone HCl (Dilaudid) 0.5 mg IVPUSH ONETIME ONE Stop: 12/06/19 16:30 Last Admin: 12/06/19 16:43 Dose: 0.5 mg Sodium Chloride (Normal Saline) 1,000 mls @ 150 mls/hr IV ASDIRECTED [facility] Last Admin: 12/06/19 20:50 Dose: 150 mls/hr Ceftriaxone Sodium 1 gm/ (Sodium Chloride) 100 mls @ 200 mls/hr IV ONETIME ONE Stop: 12/06/19 16:57 Last Admin: 12/06/19 16:43 Dose: 200 mls/hr Linezolid 600 mg/ Premix 300 mls @ 300 mls/hr IV Q12H [facility] Last Admin: 12/09/19 08:38 Dose: 300 mls/hr Dextrose/Sodium Chloride (Dextrose 5%-1/2 Ns) 1,000 mls @ 100 mls/hr IV ASDIRECTED [facility] Last Admin: 12/08/19 05:42 Dose: 100 mls/hr Magnesium Sulfate 4 gm/ Premix 50 mls @ 12.5 mls/hr IV ONETIME ONE Stop: 12/07/19 14:59 Last Admin: 12/07/19 12:03 Dose: 12.5 mls/hr Cefepime HCl 2 gm/ Premix 50 mls @ 100 mls/hr IV Q12H [facility] Last Admin: 12/09/19 11:02 Dose: 100 mls/hr Linezolid (Zyvox) Confirm Administered Dose 300 mls @ as directed .ROUTE .STK- MED ONE Stop: 12/07/19 20:14 Last Admin: 12/07/19 20:38 Dose: Not Given Linezolid (Zyvox) Confirm Administered Dose 300 mls @ as directed .ROUTE .STK- MED ONE Stop: 12/07/19 20:21 Last Admin: 12/07/19 20:38 Dose: Not Given Dextrose/Sodium Chloride (Dextrose 5%-1/2 Ns) 1,000 mls @ 75 mls/hr IV ASDIRECTED [facility] Last Admin: 12/09/19 09:34 Dose: 75 mls/hr Linezolid (Zyvox) 600 mg PO Q12H [facility] Loperamide HCl (Imodium) 2 mg PO DAILY PRN PRN Reason: Diarrhea Last Admin: 12/08/19 10:06 Dose: 2 mg Nystatin (Nystatin Crm) gm TOP BID PRN PRN Reason: Itching Oxycodone HCl (Oxycodone) 5 mg PO QID PRN PRN Reason: Pain Last Admin: 12/08/19 04:15 Dose: 5 mg Potassium Chloride (Klor-Con M20) 40 meq PO ONETIME ONE Stop: 12/08/19 09:52 Last Admin: 12/08/19 10:06 Dose: 40 meq Potassium Chloride (Klor-Con M20) 20 meq PO ONETIME ONE Stop: 12/08/19 21:01 Last Admin: 12/08/19 21:18 Dose: 20 meq Prednisone (Prednisone) 40 mg PO ONETIME ONE Stop: 12/06/19 21:16 Last Admin: 12/06/19 21:14 Dose: 40 mg Sodium Hypochlorite (Dakin's 1/2 Strength) 0 ml TOP ASDIRECTED PRN PRN Reason: WOUND CARE Trazodone HCl (Trazodone) 50 mg PO BEDTIME [facility] Last Admin: 12/06/19 21:15 Dose: 50 mg Sepsis Event Note - Evaluation Sepsis Screening Result: No Definite Risk - Focused Exam Vital Signs: Vital Signs Temp Pulse Resp BP Pulse Ox 12/09/19 08:02 97.3 F 58 L 16 121/56 L 100 12/09/19 02:57 98.1 F 68 16 107/65 98 Date Exam was Performed: 12/09/19 Time Exam was Performed: 14:18 - Problem List Review Problem List Initiated/Reviewed/Updated: Yes - My Orders Last 24 Hours: My Active Orders 12/08/19 21:00 Loperamide [Imodium] 4 mg PO BEDTIME PRN Melatonin 6 mg PO BEDTIME 12/08/19 22:00 Implanted Port Access [RC] ASDIRECTED 12/09/19 10:11 Convert IV to Saline Lock [OM.PC] Routine 12/09/19 18:00 cephALEXin [Keflex] 500 mg PO Q6HR 12/10/19 05:11 CBC WITH AUTO DIFF [HEME] AM CMP [COMPREHENSIVE METABOLIC PN,CMP] [CHEM] AM ESR [SEDIMENTATION RATE AUTO] [HEME] Routine MAGNESIUM [CHEM] AM - Plan Plan:: Assessment 64-year-old female with rheumatoid arthritis and chronic lower extremity ulcers with acute flare of rheumatoid arthritis * Patient is developed significant pain and weakness secondary to a flare * Pain is much improved after prednisone 40 mg on 12/06/2019 * Now on prednisone 20 mg daily * Significant improvement in symptoms Lower extremity ulcers with thickened necrotic centers treated by sharp debridement by Dr. Marmolejo * Cultures of ankle wound culture: polymicrobial with Pseudomonas, MRSA, and strep species. * cefepime and linezolid -stopped * Patient reportedly recently seen by plastic surgery, but report not available * C-reactive protein of 5.1- 10.1-->4.3 * Dr. Marmolejo in surgery consulted Complicated UTI * Patient has urinary retention and self catheterizes. * Received 3 days of broad-spectrum IV antibiotics * Urine culture: E. coli sensitive to cefazolin, resistant to ciprofloxacin and Bactrim. Intermediate to nitrofurantoin. * Started on Keflex * Positive nitrites on UA with 50-70 WBCs per high-power field * WBC 9.16 --> 12.2 (steroid effect)-->10.79 * AG 21-->16.2-->15.9 Chronic renal insufficiency * Stage III chronic renal sufficiency with an estimated GFR of 50, which is stable from since August 2018 * BUN 31-->22, creatinine 1.3-->1.2, GFR 41-->45 Plan * Admit to medical floor * Physical therapy for ambulation * Occupational Therapy * Awaiting culture and sensitivities on wound culture * Continue prednisone 20 mg every morning for rheumatoid flare * Stop Zyvox and cefepime * Switch to Keflex 500 mg 4 times daily to treat her UTI * Local wound care. She does not need systemic antimicrobial treatment for this mixed polymicrobial chronic wound. * Stop IV fluids * Reconcile home meds * Recheck CBC, CMP, and magnesium in the morning * CODE STATUS: Full code * VTE prophylaxis with Lovenox * Consult case management and social media executive to help with placement.
[2019-12-09] MEDS: Cephalexin 500 MG Cap PO SCH (17:16)
[2019-12-09] MEDS ORDERED: Linezolid 600 MG Tab PO SCH (21:00)
[2019-12-09] MEDS: rOPINIRole 0.25 MG Tab PO SCH (21:49)
[2019-12-09] MEDS: Melatonin 3 MG Tab PO SCH (21:50)
[2019-12-10] MEDS: Cephalexin 500 MG Cap PO SCH ×5 (00:10→23:03)
[2019-12-10] MEDS: Nystatin Topical Powder 15 GM Bottle TOP PRN (00:18)
[2019-12-10] MEDS: oxyCODONE 5 MG Tab PO PRN ×5 (03:57→21:34)
[2019-12-10] MEDS: Acetaminophen 325 MG Tab PO PRN ×4 (03:58→21:33)
[2019-12-10] MEDS: predniSONE 20 MG Tab PO SCH (06:13)
[2019-12-10] MEDS: Pantoprazole 40 MG Tab.CR PO SCH (06:13)
[2019-12-10] MEDS: Enoxaparin 40 MG/0.4 ML Syringe SUBCUT SCH (08:56)
[2019-12-10] MEDS: Loperamide 2 MG Cap PO PRN ×2 (08:57→23:03)
[2019-12-10] MEDS: Calcium Carbonate/Vitamin D3 600 MG-200 Units Tab PO SCH ×2 (08:57→21:28)
[2019-12-10] MEDS: Folic Acid 1 MG Tab PO SCH (08:57)
[2019-12-10] MEDS: Ascorbic Acid 500 MG Tab PO SCH ×2 (08:57→21:35)
[2019-12-10] MEDS: Ferrous Sulfate 324 MG Tab.EC PO SCH (08:57)
[2019-12-10] MEDS: hydrOXYzine HCl 10 MG Tab PO SCH ×3 (10:28→21:28)
--- NOTE | 2019-12-10 14:31 | PCM.PN ---
- General Info Date of Service: 12/10/19 Admission Dx/Problem (Free Text): Admission Diagnosis/Problem Admission Diagnosis/Problem Urinary tract infection Subjective Update: Patient is doing well. Continue to have bowel movements. Drop in her hemoglobin to 8.7 from 11.5 on admission and an 8 pound weight gain likely secondary to steroids and fluids. Pain is much improved on steroids. She continues to have dressing changes for her chronic leg wounds. - Review of Systems General: Reports: No Symptoms HEENT: Reports: No Symptoms Pulmonary: Reports: No Symptoms Cardiovascular: Reports: No Symptoms Gastrointestinal: Reports: No Symptoms Musculoskeletal: Reports: No Symptoms - Patient Data Vitals - Most Recent: Last Vital Signs Temp 97.9 F 12/10/19 08:18 Pulse 52 L 12/10/19 08:18 Resp 16 12/10/19 08:18 BP 126/72 12/10/19 08:18 Pulse Ox 98 12/10/19 08:18 Weight - Most Recent: 203 lb 14.4 oz I&O - Last 24 Hours: Intake & Output 12/09/19 12/10/19 12/10/19 22:59 06:59 14:59 Intake Total 2046 200 840 Balance 2046 200 840 Lab Results Last 24 Hours: Laboratory Results - last 24 hr 12/10/19 12/10/19 12/10/19 Range/Units 05:27 05:27 05:27 WBC 6.91 (3.98-10.04) K/mm3 RBC 2.91 L (3.98-5.22) M/mm3 Hgb 8.7 L (11.2-15.7) gm/dl Hct 29.2 L (34.1-44.9) % MCV 100.3 H (79.4-94.8) fl MCH 29.9 (25.6-32.2) pg MCHC 29.8 L (32.2-35.5) g/dl RDW Std Deviation 63.7 H (36.4-46.3) fL Plt Count 312 (182-369) K/mm3 MPV 9.4 (9.4-12.3) fl Neut % (Auto) 62.2 (34.0-71.1) % Lymph % (Auto) 28.1 (19.3-51.7) % Angelina % (Auto) 8.5 (4.7-12.5) % Eos % (Auto) 1.0 (0.7-5.8) Baso % (Auto) 0.1 (0.1-1.2) % Neut # (Auto) 4.29 (1.56-6.13) K/mm3 Lymph # (Auto) 1.94 (1.18-3.74) K/mm3 Angelina # (Auto) 0.59 H (0.24-0.36) K/mm3 Eos # (Auto) 0.07 (0.04-0.36) K/mm3 Baso # (Auto) 0.01 (0.01-0.08) K/mm3 Manual Slide Review Abnormal smear ESR 91 H (0-20) mm/hr Sodium 142 (136-145) mEq/L Potassium 4.4 (3.5-5.1) mEq/L Chloride 113 H (98-107) mEq/L Carbon Dioxide 19 L (21-32) mEq/L Anion Gap 14.4 (5-15) BUN 19 H (7-18) mg/dL Creatinine 1.3 H (0.55-1.02) mg/dL Est Cr Clr Drug Dosing 39.34 mL/min Estimated GFR (MDRD) 41 (>60) mL/min BUN/Creatinine Ratio 14.6 (14-18) Glucose 74 L (80-115) mg/dL Calcium 7.1 L (8.5-10.1) mg/dL Magnesium 2.3 (1.8-2.4) mg/dl Total Bilirubin 0.2 (0.2-1.0) mg/dL AST 20 (15-37) U/L ALT 17 (14-59) U/L Alkaline Phosphatase 54 (46-116) U/L Total Protein 6.1 L (6.4-8.2) g/dl Albumin 2.0 L (3.4-5.0) g/dl Globulin 4.1 gm/dL Albumin/Globulin Ratio 0.5 L (1-2) Corey Results Last 24 Hours: Microbiology 12/06/19 13:40 Aerobic Blood Culture - Preliminary Blood - Venous NO GROWTH AFTER 4 DAYS Anaerobic Blood Culture - Preliminary NO GROWTH AFTER 4 DAYS 12/06/19 13:23 Aerobic Blood Culture - Preliminary Blood - Venous - Lab Draw NO GROWTH AFTER 4 DAYS Anaerobic Blood Culture - Preliminary NO GROWTH AFTER 4 DAYS 12/06/19 16:47 Gram Stain - Final Ankle, Unspecified Anaerobic Culture - Preliminary Pseudomonas Aeruginosa Staphylococcus Aureus (Mrsa) Staphylococcus Aureus Enterococcus Faecalis Streptococcus Mitis/Oralis Streptococcus Anginosus Peptostreptococcus Species Anaer Gram Neg Kel,Not Bact Fr Probable Anaer Gp Diphtheroid 12/07/19 10:50 Urine Culture - Final Urine, Clean Catch Escherichia Coli Med Orders - Current: Current Medications Acetaminophen (Tylenol) 650 mg PO Q4H PRN PRN Reason: Pain (Mild 1-3)/fever Last Admin: 12/10/19 13:33 Dose: 650 mg Ascorbic Acid (Vitamin C) 500 mg PO BID [facility] Last Admin: 12/10/19 08:57 Dose: 500 mg Calcium Carbonate (Calcium Carbonate/Vitamin D 600 Mg-200 Unit) 1 tab PO BID [facility] Last Admin: 12/10/19 08:57 Dose: 1 tab Cephalexin (Keflex) 500 mg PO Q6HR [facility] Last Admin: 12/10/19 13:04 Dose: 500 mg Diphenhydramine HCl (Benadryl) 25 mg PO Q4HR PRN PRN Reason: Other Enoxaparin Sodium (Lovenox) 40 mg SUBCUT DAILY [facility] Last Admin: 12/10/19 08:56 Dose: 40 mg Ferrous Sulfate (Ferrous Sulfate) 324 mg PO DAILY [facility] Last Admin: 12/10/19 08:57 Dose: 324 mg Folic Acid (Folic Acid) 1 mg PO DAILY [facility] Last Admin: 12/10/19 08:57 Dose: 1 mg Hydromorphone HCl (Dilaudid) 0.5 mg IVPUSH Q2H PRN PRN Reason: Pain (severe 7-10) Last Admin: 12/07/19 13:33 Dose: 0.5 mg Hydroxyzine HCl (Atarax) 10 mg PO TID [facility] Last Admin: 12/10/19 10:28 Dose: 10 mg Loperamide HCl (Imodium) 2 mg PO TID PRN PRN Reason: Diarrhea Last Admin: 12/10/19 08:57 Dose: 2 mg Loperamide HCl (Imodium) 4 mg PO BEDTIME PRN PRN Reason: Diarrhea Last Admin: 12/09/19 21:51 Dose: 4 mg Melatonin (Melatonin) 6 mg PO BEDTIME [facility] Last Admin: 12/09/19 21:50 Dose: 6 mg Nystatin (Nystop) 0 gm TOP BID PRN PRN Reason: Itching Last Admin: 12/10/19 00:18 Dose: 1 applic Ondansetron HCl (Zofran Odt) 4 mg PO Q6HR PRN PRN Reason: Nausea/Vomiting Oxycodone HCl (Oxycodone) 5 - 10 mg PO Q4H PRN PRN Reason: Pain Last Admin: 12/10/19 13:32 Dose: 10 mg Pantoprazole Sodium (Protonix) 40 mg PO ACBREAKFAST [facility] Last Admin: 12/10/19 06:13 Dose: 40 mg Prednisone (Prednisone) 20 mg PO WITHBREAKFAST [facility] Last Admin: 12/10/19 06:13 Dose: 20 mg Ropinirole HCl (Requip) 0.5 mg PO BEDTIME [facility] Last Admin: 12/09/19 21:49 Dose: 0.5 mg Sodium Chloride (Saline Flush) 10 ml FLUSH ASDIRECTED PRN PRN Reason: Keep Vein Open Last Admin: 12/06/19 13:53 Dose: 10 ml Sodium Hypochlorite (Dakin's 1/2 Strength) 0 ml TOP ASDIRECTED PRN PRN Reason: WOUND CARE Discontinued Medications Cholestyramine Resin (Cholestyramine Packet) 4 gm PO DAILY [facility] Last Admin: 12/07/19 09:01 Dose: Not Given Hydromorphone HCl (Dilaudid) 0.5 mg IVPUSH ONETIME ONE Stop: 12/06/19 12:53 Last Admin: 12/06/19 13:46 Dose: 0.5 mg Hydromorphone HCl (Dilaudid) 0.5 mg IVPUSH ONETIME ONE Stop: 12/06/19 16:30 Last Admin: 12/06/19 16:43 Dose: 0.5 mg Sodium Chloride (Normal Saline) 1,000 mls @ 150 mls/hr IV ASDIRECTED [facility] Last Admin: 12/06/19 20:50 Dose: 150 mls/hr Ceftriaxone Sodium 1 gm/ (Sodium Chloride) 100 mls @ 200 mls/hr IV ONETIME ONE Stop: 12/06/19 16:57 Last Admin: 12/06/19 16:43 Dose: 200 mls/hr Linezolid 600 mg/ Premix 300 mls @ 300 mls/hr IV Q12H [facility] Last Admin: 12/09/19 08:38 Dose: 300 mls/hr Dextrose/Sodium Chloride (Dextrose 5%-1/2 Ns) 1,000 mls @ 100 mls/hr IV ASDIRECTED [facility] Last Admin: 12/08/19 05:42 Dose: 100 mls/hr Magnesium Sulfate 4 gm/ Premix 50 mls @ 12.5 mls/hr IV ONETIME ONE Stop: 12/07/19 14:59 Last Admin: 12/07/19 12:03 Dose: 12.5 mls/hr Cefepime HCl 2 gm/ Premix 50 mls @ 100 mls/hr IV Q12H [facility] Last Admin: 12/09/19 11:02 Dose: 100 mls/hr Linezolid (Zyvox) Confirm Administered Dose 300 mls @ as directed .ROUTE .STK- MED ONE Stop: 12/07/19 20:14 Last Admin: 12/07/19 20:38 Dose: Not Given Linezolid (Zyvox) Confirm Administered Dose 300 mls @ as directed .ROUTE .STK- MED ONE Stop: 12/07/19 20:21 Last Admin: 12/07/19 20:38 Dose: Not Given Dextrose/Sodium Chloride (Dextrose 5%-1/2 Ns) 1,000 mls @ 75 mls/hr IV ASDIRECTED [facility] Last Admin: 12/09/19 09:34 Dose: 75 mls/hr Linezolid (Zyvox) 600 mg PO Q12H [facility] Loperamide HCl (Imodium) 2 mg PO DAILY PRN PRN Reason: Diarrhea Last Admin: 12/08/19 10:06 Dose: 2 mg Nystatin (Nystatin Crm) gm TOP BID PRN PRN Reason: Itching Oxycodone HCl (Oxycodone) 5 mg PO QID PRN PRN Reason: Pain Last Admin: 12/08/19 04:15 Dose: 5 mg Potassium Chloride (Klor-Con M20) 40 meq PO ONETIME ONE Stop: 12/08/19 09:52 Last Admin: 12/08/19 10:06 Dose: 40 meq Potassium Chloride (Klor-Con M20) 20 meq PO ONETIME ONE Stop: 12/08/19 21:01 Last Admin: 12/08/19 21:18 Dose: 20 meq Prednisone (Prednisone) 40 mg PO ONETIME ONE Stop: 12/06/19 21:16 Last Admin: 12/06/19 21:14 Dose: 40 mg Sodium Hypochlorite (Dakin's 1/2 Strength) 0 ml TOP ASDIRECTED PRN PRN Reason: WOUND CARE Trazodone HCl (Trazodone) 50 mg PO BEDTIME [facility] Last Admin: 12/06/19 21:15 Dose: 50 mg - Exam Quality Assessment: No: Supplemental Oxygen General: Alert, Oriented HEENT: Pupils Equal, Mucous Membr. Moist/[place] Neck: Supple Lungs: Clear to Auscultation, Normal Respiratory Effort Cardiovascular: Regular Rate, Regular Rhythm GI/Abdominal Exam: Normal Bowel Sounds, Soft, Non-Tender, No Distention, No Abnormal Bruit Extremities: Other (Clean and dry dressings) Sepsis Event Note - Evaluation Sepsis Screening Result: No Definite Risk - Focused Exam Vital Signs: Vital Signs Temp Pulse Resp BP Pulse Ox 12/10/19 08:18 97.9 F 52 L 16 126/72 98 12/10/19 04:01 97.9 F 56 L 14 107/61 98 Date Exam was Performed: 12/10/19 Time Exam was Performed: 14:45 - Problem List Review Problem List Initiated/Reviewed/Updated: Yes - My Orders Last 24 Hours: My Active Orders 12/09/19 18:00 cephALEXin [Keflex] 500 mg PO Q6HR 12/10/19 12:43 Consult to Physical Therapy [PT Evaluation and Treatment] [CONS] Routine 12/10/19 13:08 OCCULT BLOOD SCREEN [OP] Routine - Plan Plan:: Assessment 64-year-old female with rheumatoid arthritis and chronic lower extremity ulcers with acute flare of rheumatoid arthritis * Patient is developed significant pain and weakness secondary to a flare * Pain is much improved after prednisone 40 mg on 12/06/2019 * Now on prednisone 20 mg daily * Significant improvement in symptoms * Sed rate 91 Lower extremity ulcers with thickened necrotic centers treated by sharp debridement by Dr. Marmolejo * Cultures of ankle wound culture: polymicrobial with Pseudomonas, MRSA, and strep species. * cefepime and linezolid -stopped * Patient reportedly recently seen by plastic surgery, but report not available * C-reactive protein of 5.1- 10.1-->4.3 * Dr. Marmolejo in surgery consulted Complicated UTI * Patient has urinary retention and self catheterizes. * Received 3 days of broad-spectrum IV antibiotics. Now only on Keflex * Urine culture: E. coli sensitive to cefazolin, resistant to ciprofloxacin and Bactrim. Intermediate to nitrofurantoin. * Keflex 500 mg QID for 7 days * Positive nitrites on UA with 50-70 WBCs per high-power field * WBC 9.16 --> 12.2 (steroid effect)-->10.79 * AG 21-->16.2-->15.9-->14.4 Anemia * Hb 11.5-->10.3-->9.2-->8.7 * Likely dilutional, anemia of chronic illness, and poor bone marrow response to stress. Chronic renal insufficiency * Stage III chronic renal sufficiency with an estimated GFR of 50, which is stable from since August 2018 * BUN 31-->22-->19, creatinine 1.3-->1.2-->1.3, GFR 41-->45-->41 Plan * Admit to medical floor * Physical therapy for ambulation * Occupational Therapy * Continue prednisone 20 mg every morning for rheumatoid flare * Keflex 500 mg 4 times daily to treat her UTI * Local wound care. She does not need systemic antimicrobial treatment for this mixed polymicrobial chronic wound. * Stop IV fluids * Recheck Hb * CODE STATUS: Full code * VTE prophylaxis with Lovenox * Consult case management and clinical social work therapist to help with placement. * Length of stay greater than 96 hours secondary to slow resolution of her chronic renal insufficiency and now new concerns regarding drop in hemoglobin
[2019-12-10] MEDS: rOPINIRole 0.25 MG Tab PO SCH (21:28)
[2019-12-10] MEDS: Melatonin 3 MG Tab PO SCH (21:28)
[2019-12-11] MEDS: oxyCODONE 5 MG Tab PO PRN ×2 (02:25→08:53)
[2019-12-11] MEDS: Acetaminophen 325 MG Tab PO PRN ×2 (02:26→08:54)
[2019-12-11] MEDS: Cephalexin 500 MG Cap PO SCH ×2 (06:46→11:47)
[2019-12-11] MEDS: Pantoprazole 40 MG Tab.CR PO SCH (06:46)
[2019-12-11] MEDS: predniSONE 20 MG Tab PO SCH (06:46)
--- NOTE | 2019-12-11 08:42 | PCM.PN ---
- General Info Date of Service: 12/11/19 Admission Dx/Problem (Free Text): Admission Diagnosis/Problem Admission Diagnosis/Problem Urinary tract infection - Patient Data Vitals - Most Recent: Last Vital Signs Temp 97.4 F 12/11/19 03:00 Pulse 63 12/11/19 03:00 Resp 18 12/11/19 03:00 BP 129/74 12/11/19 03:00 Pulse Ox 96 12/11/19 03:00 Weight - Most Recent: 204 lb 9.6 oz I&O - Last 24 Hours: Intake & Output 12/10/19 12/11/19 12/11/19 22:59 06:59 14:59 Intake Total 1560 600 Balance 1560 600 Lab Results Last 24 Hours: Laboratory Results - last 24 hr 12/11/19 Range/Units 04:55 Hgb 8.9 L (11.2-15.7) gm/dl Hct 30.0 L (34.1-44.9) % Corey Results Last 24 Hours: Microbiology 12/10/19 13:08 Occult Blood - Final Stool / Feces 12/06/19 13:40 Aerobic Blood Culture - Preliminary Blood - Venous NO GROWTH AFTER 4 DAYS Anaerobic Blood Culture - Preliminary NO GROWTH AFTER 4 DAYS 12/06/19 13:23 Aerobic Blood Culture - Preliminary Blood - Venous - Lab Draw NO GROWTH AFTER 4 DAYS Anaerobic Blood Culture - Preliminary NO GROWTH AFTER 4 DAYS 12/06/19 16:47 Gram Stain - Final Ankle, Unspecified Anaerobic Culture - Preliminary Pseudomonas Aeruginosa Staphylococcus Aureus (Mrsa) Staphylococcus Aureus Enterococcus Faecalis Streptococcus Mitis/Oralis Streptococcus Anginosus Peptostreptococcus Species Anaer Gram Neg Kel,Not Bact Fr Probable Anaer Gp Diphtheroid Med Orders - Current: Current Medications Acetaminophen (Tylenol) 650 mg PO Q4H PRN PRN Reason: Pain (Mild 1-3)/fever Last Admin: 12/11/19 02:26 Dose: 650 mg Ascorbic Acid (Vitamin C) 500 mg PO BID [facility] Last Admin: 12/10/19 21:35 Dose: 500 mg Calcium Carbonate (Calcium Carbonate/Vitamin D 600 Mg-200 Unit) 1 tab PO BID [facility] Last Admin: 12/10/19 21:28 Dose: 1 tab Cephalexin (Keflex) 500 mg PO Q6HR [facility] Last Admin: 12/11/19 06:46 Dose: 500 mg Diphenhydramine HCl (Benadryl) 25 mg PO Q4HR PRN PRN Reason: Other Enoxaparin Sodium (Lovenox) 40 mg SUBCUT DAILY [facility] Last Admin: 12/10/19 08:56 Dose: 40 mg Ferrous Sulfate (Ferrous Sulfate) 324 mg PO DAILY [facility] Last Admin: 12/10/19 08:57 Dose: 324 mg Folic Acid (Folic Acid) 1 mg PO DAILY [facility] Last Admin: 12/10/19 08:57 Dose: 1 mg Hydromorphone HCl (Dilaudid) 0.5 mg IVPUSH Q2H PRN PRN Reason: Pain (severe 7-10) Last Admin: 12/07/19 13:33 Dose: 0.5 mg Hydroxyzine HCl (Atarax) 10 mg PO TID [facility] Last Admin: 12/10/19 21:28 Dose: 10 mg Loperamide HCl (Imodium) 2 mg PO TID PRN PRN Reason: Diarrhea Last Admin: 12/10/19 08:57 Dose: 2 mg Loperamide HCl (Imodium) 4 mg PO BEDTIME PRN PRN Reason: Diarrhea Last Admin: 12/10/19 23:03 Dose: 4 mg Melatonin (Melatonin) 6 mg PO BEDTIME [facility] Last Admin: 12/10/19 21:28 Dose: 6 mg Nystatin (Nystop) 0 gm TOP BID PRN PRN Reason: Itching Last Admin: 12/10/19 00:18 Dose: 1 applic Ondansetron HCl (Zofran Odt) 4 mg PO Q6HR PRN PRN Reason: Nausea/Vomiting Oxycodone HCl (Oxycodone) 5 - 10 mg PO Q4H PRN PRN Reason: Pain Last Admin: 12/11/19 02:25 Dose: 10 mg Pantoprazole Sodium (Protonix) 40 mg PO ACBREAKFAST [facility] Last Admin: 12/11/19 06:46 Dose: 40 mg Prednisone (Prednisone) 20 mg PO WITHBREAKFAST [facility] Last Admin: 12/11/19 06:46 Dose: 20 mg Ropinirole HCl (Requip) 0.5 mg PO BEDTIME [facility] Last Admin: 12/10/19 21:28 Dose: 0.5 mg Sodium Chloride (Saline Flush) 10 ml FLUSH ASDIRECTED PRN PRN Reason: Keep Vein Open Last Admin: 12/06/19 13:53 Dose: 10 ml Sodium Hypochlorite (Dakin's 1/2 Strength) 0 ml TOP ASDIRECTED PRN PRN Reason: WOUND CARE Discontinued Medications Cholestyramine Resin (Cholestyramine Packet) 4 gm PO DAILY [facility] Last Admin: 12/07/19 09:01 Dose: Not Given Hydromorphone HCl (Dilaudid) 0.5 mg IVPUSH ONETIME ONE Stop: 12/06/19 12:53 Last Admin: 12/06/19 13:46 Dose: 0.5 mg Hydromorphone HCl (Dilaudid) 0.5 mg IVPUSH ONETIME ONE Stop: 12/06/19 16:30 Last Admin: 12/06/19 16:43 Dose: 0.5 mg Sodium Chloride (Normal Saline) 1,000 mls @ 150 mls/hr IV ASDIRECTED [facility] Last Admin: 12/06/19 20:50 Dose: 150 mls/hr Ceftriaxone Sodium 1 gm/ (Sodium Chloride) 100 mls @ 200 mls/hr IV ONETIME ONE Stop: 12/06/19 16:57 Last Admin: 12/06/19 16:43 Dose: 200 mls/hr Linezolid 600 mg/ Premix 300 mls @ 300 mls/hr IV Q12H [facility] Last Admin: 12/09/19 08:38 Dose: 300 mls/hr Dextrose/Sodium Chloride (Dextrose 5%-1/2 Ns) 1,000 mls @ 100 mls/hr IV ASDIRECTED [facility] Last Admin: 12/08/19 05:42 Dose: 100 mls/hr Magnesium Sulfate 4 gm/ Premix 50 mls @ 12.5 mls/hr IV ONETIME ONE Stop: 12/07/19 14:59 Last Admin: 12/07/19 12:03 Dose: 12.5 mls/hr Cefepime HCl 2 gm/ Premix 50 mls @ 100 mls/hr IV Q12H [facility] Last Admin: 12/09/19 11:02 Dose: 100 mls/hr Linezolid (Zyvox) Confirm Administered Dose 300 mls @ as directed .ROUTE .STK- MED ONE Stop: 12/07/19 20:14 Last Admin: 12/07/19 20:38 Dose: Not Given Linezolid (Zyvox) Confirm Administered Dose 300 mls @ as directed .ROUTE .STK- MED ONE Stop: 12/07/19 20:21 Last Admin: 12/07/19 20:38 Dose: Not Given Dextrose/Sodium Chloride (Dextrose 5%-1/2 Ns) 1,000 mls @ 75 mls/hr IV ASDIRECTED [facility] Last Admin: 12/09/19 09:34 Dose: 75 mls/hr Linezolid (Zyvox) 600 mg PO Q12H [facility] Loperamide HCl (Imodium) 2 mg PO DAILY PRN PRN Reason: Diarrhea Last Admin: 12/08/19 10:06 Dose: 2 mg Nystatin (Nystatin Crm) gm TOP BID PRN PRN Reason: Itching Oxycodone HCl (Oxycodone) 5 mg PO QID PRN PRN Reason: Pain Last Admin: 12/08/19 04:15 Dose: 5 mg Potassium Chloride (Klor-Con M20) 40 meq PO ONETIME ONE Stop: 12/08/19 09:52 Last Admin: 12/08/19 10:06 Dose: 40 meq Potassium Chloride (Klor-Con M20) 20 meq PO ONETIME ONE Stop: 12/08/19 21:01 Last Admin: 12/08/19 21:18 Dose: 20 meq Prednisone (Prednisone) 40 mg PO ONETIME ONE Stop: 12/06/19 21:16 Last Admin: 12/06/19 21:14 Dose: 40 mg Sodium Hypochlorite (Dakin's 1/2 Strength) 0 ml TOP ASDIRECTED PRN PRN Reason: WOUND CARE Trazodone HCl (Trazodone) 50 mg PO BEDTIME [facility] Last Admin: 12/06/19 21:15 Dose: 50 mg Sepsis Event Note - Evaluation Sepsis Screening Result: No Definite Risk - Focused Exam Vital Signs: Vital Signs Temp Pulse Resp BP Pulse Ox 12/11/19 03:00 97.4 F 63 18 129/74 96 Date Exam was Performed: 12/11/19 Time Exam was Performed: 08:42 - Plan Plan:: Assessment 64-year-old female with rheumatoid arthritis and chronic lower extremity ulcers with acute flare of rheumatoid arthritis * Patient is developed significant pain and weakness secondary to a flare * Pain is much improved after prednisone 40 mg on 12/06/2019 * Now on prednisone 20 mg daily * Significant improvement in symptoms * Sed rate 91 Lower extremity ulcers with thickened necrotic centers treated by sharp debridement by Dr. Marmolejo * Cultures of ankle wound culture: polymicrobial with Pseudomonas, MRSA, and strep species. * cefepime and linezolid -stopped * Patient reportedly recently seen by plastic surgery, but report not available * C-reactive protein of 5.1- 10.1-->4.3 * Dr. Marmolejo in surgery consulted Complicated UTI * Patient has urinary retention and self catheterizes. * Received 3 days of broad-spectrum IV antibiotics. Now only on Keflex * Urine culture: E. coli sensitive to cefazolin, resistant to ciprofloxacin and Bactrim. Intermediate to nitrofurantoin. * Keflex 500 mg QID for 7 days * Positive nitrites on UA with 50-70 WBCs per high-power field * WBC 9.16 --> 12.2 (steroid effect)-->10.79 * AG 21-->16.2-->15.9-->14.4 Anemia * Hb 11.5-->10.3-->9.2-->8.7 * Likely dilutional, anemia of chronic illness, and poor bone marrow response to stress. Chronic renal insufficiency * Stage III chronic renal sufficiency with an estimated GFR of 50, which is stable from since August 2018 * BUN 31-->22-->19, creatinine 1.3-->1.2-->1.3, GFR 41-->45-->41 Plan * Admit to medical floor * Physical therapy for ambulation * Occupational Therapy * Continue prednisone 20 mg every morning for rheumatoid flare * Keflex 500 mg 4 times daily to treat her UTI * Local wound care. She does not need systemic antimicrobial treatment for this mixed polymicrobial chronic wound. * Stop IV fluids * Recheck Hb * CODE STATUS: Full code * VTE prophylaxis with Lovenox * Consult case management and 7th grade social studies teacher to help with placement. * Length of stay greater than 96 hours secondary to slow resolution of her chronic renal insufficiency and now new concerns regarding drop in hemoglobin
[2019-12-11] MEDS: Ascorbic Acid 500 MG Tab PO SCH (08:53)
[2019-12-11] MEDS: hydrOXYzine HCl 10 MG Tab PO SCH ×2 (08:53→14:56)
[2019-12-11] MEDS: Folic Acid 1 MG Tab PO SCH (08:53)
[2019-12-11] MEDS: Ferrous Sulfate 324 MG Tab.EC PO SCH (08:53)
[2019-12-11] MEDS: Calcium Carbonate/Vitamin D3 600 MG-200 Units Tab PO SCH (08:53)
[2019-12-11] MEDS: Enoxaparin 40 MG/0.4 ML Syringe SUBCUT SCH (08:57)
[2019-12-11] MEDS: Loperamide 2 MG Cap PO PRN (11:47)
--- NOTE | 2019-12-11 12:04 | PCM.DCSUM1 ---
Discharge Summary - Hospital Course HPI Initial Comments: 64-year-old female with history of rheumatoid arthritis and chronic lower extremity ulcers presented to the emergency room after developing right-sided low back pain and right hand numbness. Patient was riding a bus to and from [place] on Tuesday when she went to see her plastic surgeon. Patient states that she then developed right arm and hand numbness and right-sided low back pain. She did go to urgent care center yesterday, but no treatment was rendered. This morning when she woke up she was unable to get out of bed because of back pain. Patient now has difficulty raising her right arm or closing her right hand secondary to pain. Patient also has chronic bilateral lower extremity ulcers for the last 8 years. They have developed a foul smell and weep. They were noted in the emergency room. Apparently patient spent 2 months at [facility] [place] in [place], [place] in 2019. She then went to [facility] for care of these lesions. She states that she has had some type of skin lesion for over 35 years. In the emergency room patient was found to have nitrite positive UTI. She self caths for the last 6 months secondary to urinary retention. She had a low- grade fever of 100.6 and because of her weakness, pain, and UTI it was felt that she would benefit from hospitalization and possible transition to a intermediate facility. She was given Rocephin in the emergency room. Brief History: Assessment. 64-year-old female with rheumatoid arthritis and chronic lower extremity ulcers with acute flare of rheumatoid arthritis. Patient is developed significant pain and weakness secondary to a rheumatoid flare. Lower extremity ulcers with thickened necrotic areas. Patient reportedly recently seen by plastic surgery, but report not available. C- reactive protein of 5.1. Complicated UTI. Patient has urinary retention and self catheterizes. Positive nitrites on UA with 50-70 WBCs per high-power field. Normal WBC of 9.16 with slight left shift with absolute neutrophils of 6.82 and 74.5%. Chronic renal insufficiency. Stage III chronic renal sufficiency with an estimated GFR of 50, which is stable from since August 2018. Plan. Admit to medical floor. Consult Dr. Marmolejo in surgery for possible surgical debridement. Consult physical therapy for wound care and ambulation. Consult Occupational Therapy. Continue Rocephin. Prednisone 40 mg now and then 20 mg every morning for rheumatoid flare. Urine culture and blood cultures. Reconcile home meds. Recheck CBC, CMP, and magnesium in the morning. CODE STATUS: Full code. VTE prophylaxis with Lovenox. Consult case management and social secretary to help with placement. Diagnosis: Stroke: No - Discharge Data Discharge Date: 12/11/19 Discharge Disposition: Home, Self-Care 01 Condition: Good - Referral to Home Health Date of Face to Face Encounter: 12/11/19 Reason for Homebound Status: Face to Face meeting with pt and or family. Pt has UTI, ulcers of both lower extremities, chronic renal insufficiency, Rheumatoid Arthritis and anemia. Pt is in need Home Health Care services for; low activity tolerance, functional mobility, standing balance, strength, transfers. Nursing for pain management, skilled assessment, disease education and disease management. Physical therapy for pt for balance training, gait training, neuromuscular reduction, therapeutic exercises, and transfer training. Occupational therapy for ADLs, balance training, caregiver training, functional mobility training, functional mobility, safety education , therapeutic activities and therapeutic exercises. Pt is currently homebound related to being walker dependent, decreased activity tolerance, and a decreased level of endurance. Pt will be followed by his primary provider. Primary Care Physician: Shabnam Ji MD - Patient Summary/Data Consults: Consultations 12/06/19 18:46 Consult to Case Management/Aircraft Engine Mechanic [CONS] Routine OT Evaluation and Treatment [CONS] Routine 12/06/19 19:02 Consult to Physician [CONS] Routine 12/10/19 12:43 Consult to Physical Therapy [PT Evaluation and Treatment] [CONS] Routine Hospital Course: Patient was admitted with chronic, but worsening back pain and right arm pain. After 2 days of having her steroids increased she has significant improvement and resolution of her acute pain and numbness in her hand. While she was admitted we did consult Dr. Marmolejo to evaluate her bilateral chronic lower extremity ulcers secondary to her rheumatoid arthritis. He did sharp debridement and started her on dressing changes using Dakin's solution. This improved the wounds and she will go home continuing with the above treatment. Patient was diagnosed with a UTI, it was felt to be complicated secondary to her self-catheterization, received 3 days of broad-spectrum antibiotics and will complete a total of 7 days of antibiotics. Patient will be sent home on Keflex. Of note she did have a drop in her hemoglobin from 11.5-9.2 from the day of admission to the third day of admission. It stabilized there with the discharge hemoglobin of 8.9. It was felt this was secondary to IV fluids and delusional, poor bone marrow response to stress, and anemia of chronic disease. Stool was collected for Hemoccult blood and it was negative x3. - Patient Instructions Diet: Usual Diet as Tolerated Driving: May Drive Today Showering/Bathing: May Shower Other/Special Instructions: Follow up with PCP and Rhematologist in 1 - 2 weeks. Get CBC in 2-3 days. - Discharge Plan *PRESCRIPTION DRUG MONITORING PROGRAM REVIEWED*: No *COPY OF PRESCRIPTION DRUG MONITORING REPORT IN PATIENT KARLA: No Prescriptions/Med Rec: cephALEXin [Keflex] 500 mg PO Q6HR #8 cap predniSONE [Prednisone] 10 mg PO DAILY #11 tab.ds.pk Sodium Hypochlorite [Dakin's 1/2 Strength] 1 bottle TOP ASDIRECTED PRN #10 ml PRN Reason: WOUND nursing home Medications: Home Meds Cholecalciferol (Vitamin D3) [Vitamin D3] 2,000 unit PO DAILY 05/13/18 [History] Lutein 40 mg PO DAILY 05/13/18 [History] Methenamine Hippurate [Hiprex] 1 gm PO BID 05/13/18 [History] traZODone HCl [Trazodone HCl] 50 mg PO BEDTIME 05/13/18 [History] Acetaminophen [Tylenol] 650 mg PO Q4HR 12/06/19 [History] Alfuzosin HCl [Alfuzosin HCl ER] 10 mg PO DAILY 12/06/19 [History] Ascorbic Acid 500 mg PO BID 12/06/19 [History] Calcium Carbonate 500 mg PO Q4HR PRN 12/06/19 [History] Calcium Carbonate/Vitamin D3 [Calcium Carbonate/Vitamin D 600 MG-200 Unit] 1 tab PO BID 12/06/19 [History] Cetirizine [ZyrTEC] 10 mg PO DAILY 12/06/19 [History] Cholestyramine/Sucrose [Cholestyramine] 4 g PO DAILY 12/06/19 [History] Clobetasol Propionate [Temovate 0.05% Oint] 1 applic TOP BID PRN 12/06/19 [ History] Cranberry Fruit Concentrate [Cranberry] 450 mg PO BID 12/06/19 [History] Diclofenac/Hyaluronate/Niacin [Diclofen 3%-Hyaluron 2%-Niac4%] 2 gm TOP BID PRN 12/06/19 [History] Ferrous Sulfate 325 mg PO DAILY 12/06/19 [History] Folic Acid 1 mg PO DAILY 12/06/19 [History] Hydrocortisone [Hydrocortisone 1% Crm] 1 applic TOP TID PRN 12/06/19 [History] Lidocaine 5% [Lidoderm 5%] 1 patch TOP DAILY 12/06/19 [History] Loperamide [Imodium AD] 2 mg PO DAILY PRN 12/06/19 [History] Lycopene 10 mg PO DAILY 12/06/19 [History] Magnesium Oxide 400 mg PO BID 12/06/19 [History] Methotrexate Sodium [Methotrexate] 17.5 mg PO ASDIRECTED 12/06/19 [History] Multivitamin [Multivitamins] 1 tab PO DAILY 12/06/19 [History] Non-Formulary Medication [NF Drug] 2 scoop PO DAILY 12/06/19 [History] Nystatin [Nystatin Crm] 1 applic TOP BID PRN 12/06/19 [History] Nystatin [Nystop] 1 applic TOP BID PRN 12/06/19 [History] Ondansetron [Zofran ODT] 1 tab PO Q6HR PRN 12/06/19 [History] Pantoprazole Sodium [Protonix] 40 mg PO DAILY 12/06/19 [History] Sodium Hypochlorite [Anasept] 1 inch TOP DAILY 12/06/19 [History] Zoledronic Acid in Water [Reclast] 5 mg .ROUTE ASDIRECTED 12/06/19 [History] diphenhydrAMINE [Benadryl] 25 mg PO Q4HR PRN 12/06/19 [History] hydrOXYzine HCL [Hydroxyzine HCl] 10 mg PO TID 12/06/19 [History] oxyCODONE 5 mg PO QID 12/06/19 [History] rOPINIRole [Requip] 0.5 mg PO BEDTIME 12/06/19 [History] Sodium Hypochlorite [Dakin's 1/2 Strength] 1 bottle TOP ASDIRECTED PRN #10 ml [Rx] cephALEXin [Keflex] 500 mg PO Q6HR #8 cap 12/11/19 [Rx] predniSONE [Prednisone] 10 mg PO DAILY #11 tab.ds.pk 12/11/19 [Rx] Patient Handouts: Sepsis, Diagnosis, Adult Referrals: Shabnam Ji MD [Primary Care Provider] - 12/20/19 2:00 pm (Please follow up with Dr. Ji on December 19 at 2pm.) - Discharge Summary/Plan Comment DC Time >30 min.: Yes Discharge Summary/Plan Comment: Discharge to home in good condition Follow-up with her primary care provider. Recheck CBC in 2 to 3 days. Increase prednisone to 20 mg for 1 more day then 10 mg a day for 9 days. Discussed with physical security manager or primary care provider appropriate weaning after this current burst of steroids. - General Info Date of Service: 12/11/19 Subjective Update: Patient states that she is feeling well. Leg wounds are improving. Pain is much improved on higher dose prednisone. Functional Status: Reports: Pain Controlled - Review of Systems General: Reports: No Symptoms HEENT: Reports: No Symptoms Pulmonary: Reports: No Symptoms Cardiovascular: Reports: No Symptoms Gastrointestinal: Reports: No Symptoms Musculoskeletal: Reports: No Symptoms - Patient Data Vitals - Most Recent: Last Vital Signs Temp 97.9 F 12/11/19 08:28 Pulse 63 12/11/19 08:28 Resp 16 12/11/19 08:28 BP 140/64 12/11/19 08:28 Pulse Ox 96 12/11/19 08:28 Weight - Most Recent: 204 lb 9.6 oz I&O - Last 24 hours: Intake & Output 12/10/19 12/11/19 12/11/19 22:59 06:59 14:59 Intake Total 1560 600 180 Balance 1560 600 180 Lab Results - Last 24 hrs: Laboratory Results - last 24 hr 12/11/19 Range/Units 04:55 Hgb 8.9 L (11.2-15.7) gm/dl Hct 30.0 L (34.1-44.9) % KENAN Results - Last 24 hrs: Microbiology 12/06/19 16:47 Gram Stain - Final Ankle, Unspecified Anaerobic Culture - Final Pseudomonas Aeruginosa Staphylococcus Aureus (Mrsa) Staphylococcus Aureus Enterococcus Faecalis Streptococcus Mitis/Oralis Streptococcus Anginosus Peptostreptococcus Species Anaer Gram Neg Kel,Not Bact Fr Probable Anaer Gp Diphtheroid 12/10/19 13:08 Occult Blood - Final Stool / Feces 12/06/19 13:40 Aerobic Blood Culture - Preliminary Blood - Venous NO GROWTH AFTER 4 DAYS Anaerobic Blood Culture - Preliminary NO GROWTH AFTER 4 DAYS 12/06/19 13:23 Aerobic Blood Culture - Preliminary Blood - Venous - Lab Draw NO GROWTH AFTER 4 DAYS Anaerobic Blood Culture - Preliminary NO GROWTH AFTER 4 DAYS Med Orders - Current: Current Medications Acetaminophen (Tylenol) 650 mg PO Q4H PRN PRN Reason: Pain (Mild 1-3)/fever Last Admin: 12/11/19 08:54 Dose: 650 mg Ascorbic Acid (Vitamin C) 500 mg PO BID [facility] Last Admin: 12/11/19 08:53 Dose: 500 mg Calcium Carbonate (Calcium Carbonate/Vitamin D 600 Mg-200 Unit) 1 tab PO BID [facility] Last Admin: 12/11/19 08:53 Dose: 1 tab Cephalexin (Keflex) 500 mg PO Q6HR [facility] Last Admin: 12/11/19 11:47 Dose: 500 mg Diphenhydramine HCl (Benadryl) 25 mg PO Q4HR PRN PRN Reason: Other Enoxaparin Sodium (Lovenox) 40 mg SUBCUT DAILY [facility] Last Admin: 12/11/19 08:57 Dose: 40 mg Ferrous Sulfate (Ferrous Sulfate) 324 mg PO DAILY [facility] Last Admin: 12/11/19 08:53 Dose: 324 mg Folic Acid (Folic Acid) 1 mg PO DAILY [facility] Last Admin: 12/11/19 08:53 Dose: 1 mg Hydromorphone HCl (Dilaudid) 0.5 mg IVPUSH Q2H PRN PRN Reason: Pain (severe 7-10) Last Admin: 12/07/19 13:33 Dose: 0.5 mg Hydroxyzine HCl (Atarax) 10 mg PO TID [facility] Last Admin: 12/11/19 08:53 Dose: 10 mg Loperamide HCl (Imodium) 2 mg PO TID PRN PRN Reason: Diarrhea Last Admin: 12/11/19 11:47 Dose: 2 mg Loperamide HCl (Imodium) 4 mg PO BEDTIME PRN PRN Reason: Diarrhea Last Admin: 12/10/19 23:03 Dose: 4 mg Melatonin (Melatonin) 6 mg PO BEDTIME [facility] Last Admin: 12/10/19 21:28 Dose: 6 mg Nystatin (Nystop) 0 gm TOP BID PRN PRN Reason: Itching Last Admin: 12/10/19 00:18 Dose: 1 applic Ondansetron HCl (Zofran Odt) 4 mg PO Q6HR PRN PRN Reason: Nausea/Vomiting Oxycodone HCl (Oxycodone) 5 - 10 mg PO Q4H PRN PRN Reason: Pain Last Admin: 12/11/19 08:53 Dose: 10 mg Pantoprazole Sodium (Protonix) 40 mg PO ACBREAKFAST [facility] Last Admin: 12/11/19 06:46 Dose: 40 mg Prednisone (Prednisone) 20 mg PO WITHBREAKFAST [facility] Last Admin: 12/11/19 06:46 Dose: 20 mg Ropinirole HCl (Requip) 0.5 mg PO BEDTIME [facility] Last Admin: 12/10/19 21:28 Dose: 0.5 mg Sodium Chloride (Saline Flush) 10 ml FLUSH ASDIRECTED PRN PRN Reason: Keep Vein Open Last Admin: 12/06/19 13:53 Dose: 10 ml Sodium Hypochlorite (Dakin's 1/2 Strength) 0 ml TOP ASDIRECTED PRN PRN Reason: WOUND CARE Last Admin: 12/11/19 11:40 Dose: 1 ml Discontinued Medications Cholestyramine Resin (Cholestyramine Packet) 4 gm PO DAILY [facility] Last Admin: 12/07/19 09:01 Dose: Not Given Hydromorphone HCl (Dilaudid) 0.5 mg IVPUSH ONETIME ONE Stop: 12/06/19 12:53 Last Admin: 12/06/19 13:46 Dose: 0.5 mg Hydromorphone HCl (Dilaudid) 0.5 mg IVPUSH ONETIME ONE Stop: 12/06/19 16:30 Last Admin: 12/06/19 16:43 Dose: 0.5 mg Sodium Chloride (Normal Saline) 1,000 mls @ 150 mls/hr IV ASDIRECTED [facility] Last Admin: 12/06/19 20:50 Dose: 150 mls/hr Ceftriaxone Sodium 1 gm/ (Sodium Chloride) 100 mls @ 200 mls/hr IV ONETIME ONE Stop: 12/06/19 16:57 Last Admin: 12/06/19 16:43 Dose: 200 mls/hr Linezolid 600 mg/ Premix 300 mls @ 300 mls/hr IV Q12H [facility] Last Admin: 12/09/19 08:38 Dose: 300 mls/hr Dextrose/Sodium Chloride (Dextrose 5%-1/2 Ns) 1,000 mls @ 100 mls/hr IV ASDIRECTED [facility] Last Admin: 12/08/19 05:42 Dose: 100 mls/hr Magnesium Sulfate 4 gm/ Premix 50 mls @ 12.5 mls/hr IV ONETIME ONE Stop: 12/07/19 14:59 Last Admin: 12/07/19 12:03 Dose: 12.5 mls/hr Cefepime HCl 2 gm/ Premix 50 mls @ 100 mls/hr IV Q12H [facility] Last Admin: 12/09/19 11:02 Dose: 100 mls/hr Linezolid (Zyvox) Confirm Administered Dose 300 mls @ as directed .ROUTE .STK- MED ONE Stop: 12/07/19 20:14 Last Admin: 12/07/19 20:38 Dose: Not Given Linezolid (Zyvox) Confirm Administered Dose 300 mls @ as directed .ROUTE .STK- MED ONE Stop: 12/07/19 20:21 Last Admin: 12/07/19 20:38 Dose: Not Given Dextrose/Sodium Chloride (Dextrose 5%-1/2 Ns) 1,000 mls @ 75 mls/hr IV ASDIRECTED [facility] Last Admin: 12/09/19 09:34 Dose: 75 mls/hr Linezolid (Zyvox) 600 mg PO Q12H [facility] Loperamide HCl (Imodium) 2 mg PO DAILY PRN PRN Reason: Diarrhea Last Admin: 12/08/19 10:06 Dose: 2 mg Nystatin (Nystatin Crm) gm TOP BID PRN PRN Reason: Itching Oxycodone HCl (Oxycodone) 5 mg PO QID PRN PRN Reason: Pain Last Admin: 12/08/19 04:15 Dose: 5 mg Potassium Chloride (Klor-Con M20) 40 meq PO ONETIME ONE Stop: 12/08/19 09:52 Last Admin: 12/08/19 10:06 Dose: 40 meq Potassium Chloride (Klor-Con M20) 20 meq PO ONETIME ONE Stop: 12/08/19 21:01 Last Admin: 12/08/19 21:18 Dose: 20 meq Prednisone (Prednisone) 40 mg PO ONETIME ONE Stop: 12/06/19 21:16 Last Admin: 12/06/19 21:14 Dose: 40 mg Sodium Hypochlorite (Dakin's 1/2 Strength) 0 ml TOP ASDIRECTED PRN PRN Reason: WOUND CARE Trazodone HCl (Trazodone) 50 mg PO BEDTIME [facility] Last Admin: 12/06/19 21:15 Dose: 50 mg - Exam Quality Assessment: Denies: Supplemental Oxygen General: Reports: Alert, Oriented HEENT: Reports: Pupils Equal, Mucous Membr. Moist/[place] Neck: Reports: Supple Lungs: Reports: Clear to Auscultation, Normal Respiratory Effort Cardiovascular: Reports: Regular Rate, Regular Rhythm GI/Abdominal Exam: Normal Bowel Sounds, Soft, Non-Tender, No Organomegaly, No Distention, No Abnormal Bruit, No Mass, Pelvis Stable Extremities: No Pedal Edema, Normal Capillary Refill Wound/Incisions: Reports: Healing Well Psy/Mental Status: Reports: Alert, Normal Affect, Normal Mood
[2019-12-11] MEDS ORDERED: traZODone 50 MG Tab PO SCH (21:00)
== END 2019-12-11 15:00 | disposition home or self-care (01) | DRG 546 ==
LOC: JD.ED 12:21 → JD.MS 16:53
PROVIDERS: ADMIT Family Medicine; ATTEND Family Medicine
PROC: 0HBNXZZ Excision of Left Foot Skin, External Approach (ICD-10-PCS; principal; 2019-12-07)
PROC: 0HBMXZZ Excision of Right Foot Skin, External Approach (ICD-10-PCS; 2019-12-07)
DX: M06.9 Rheumatoid arthritis, unspecified (principal); T83.518A Infection and inflammatory reaction due to other urinary catheter, initial encounter; N39.0 Urinary tract infection, site not specified; L97.929 Non-pressure chronic ulcer of unspecified part of left lower leg with unspecified severity; L97.919 Non-pressure chronic ulcer of unspecified part of right lower leg with unspecified severity; D64.9 Anemia, unspecified; N18.3 Chronic kidney disease, stage 3 (moderate); B96.20 Unspecified Escherichia coli [E. coli] as the cause of diseases classified elsewhere; K21.9 Gastro-esophageal reflux disease without esophagitis; I12.9 Hypertensive chronic kidney disease with stage 1 through stage 4 chronic kidney disease, or unspecified chronic kidney disease; Z96.649 Presence of unspecified artificial hip joint; E11.22 Type 2 diabetes mellitus with diabetic chronic kidney disease; Z91.09 Other allergy status, other than to drugs and biological substances; Z88.1 Allergy status to other antibiotic agents; Z91.040 Latex allergy status; Z88.0 Allergy status to penicillin; Z88.2 Allergy status to sulfonamides; Z79.52 Long term (current) use of systemic steroids; Z79.899 Other long term (current) drug therapy
CPT/HCPCS: 36415; 80048; 80053; 81001; 82270; 83605; 83735; 85014; 85018; 85025; 85652; 86140; 87040; 87075; 87076; 87077; 87086; 87088; 87181; 87184; 87186; 87205; 87641; 96361; 96374; 96375; 96376; 97110-GO; 97110-GP; 97162-GP; 97165-GO; 97530-GO; 97530-GP; 99284; 99285-25; A9270-GY; J0692; J0696; J1170; J1642; J1650; J2020; J3475; J7030; J7042; J7050

== ENCOUNTER 2020-01-19 08:37 | Inpatient (IN) | payer MEDICARE, MEDICAID ==
[2020-01-19] MEDS ORDERED: methylPREDNISolone Sodium Succinate 125 MG/2 ML SDV IVPUSH ONE (09:06)
--- NOTE | 2020-01-19 09:30 | EDM.PDOC ---
ED HPI GENERAL MEDICAL PROBLEM - General Chief Complaint: General Stated Complaint: LESLI AMBLUANCE Time Seen by Provider: 01/19/20 08:51 Source of Information: Reports: Patient, EMS History Limitations: Reports: No Limitations - History of Present Illness INITIAL COMMENTS - FREE TEXT/NARRATIVE: The patient presents by [facility] for an RA flair. The patient says she was moving some boxes yesterday and after that she had joint pain all over. She laid down at 3pm and has not gotten out of bed since. She hurts all over. EMS had a temp of 101. She was 99 here. She is wheel chair bound due to the RA. EMS said her house was dirty and there was stuff everywhere and it was hard to get around. She denies cough, congestion, runny nose, chest pain, shortness of breath, abdominal pain, nausea or vomiting. She has chronic sores to bother lower legs. In November she was admitted and there was talk of her going to a custodial but it did not happen. She says she does have home health. Onset: Gradual Duration: Day(s): (yesterday) Location: Reports: Generalized Quality: Reports: Ache Severity: Severe Improves with: Reports: Immobilization Worsens with: Reports: Movement Context: Denies: Trauma Associated Symptoms: Reports: Fever/Chills. Denies: Chest Pain, Cough, Headaches, Nausea/Vomiting, Shortness of Breath Bilateral Arm Pain Score (Numeric/FACES): 9 - Related Data Allergies Allergy/AdvReac Type Severity Reaction Status Date / Time adhesive Allergy Severe Rash Verified 01/19/20 08:57 alginic acid Allergy Severe Rash Verified 01/19/20 08:57 [From MediHoney (onesimo alginate-honey)] amikacin Allergy Severe Hives Verified 01/19/20 08:57 cefazolin Allergy Severe Hives Verified 01/19/20 08:57 clindamycin Allergy Severe Rash Verified 01/19/20 08:57 cyclobenzaprine Allergy Severe Cannot Verified 01/19/20 08:57 Remember honey Allergy Severe Rash Verified 01/19/20 08:57 [From MediHoney (onesimo alginate-honey)] hydroxychloroquine Allergy Severe Other Verified 01/19/20 08:57 [From Plaquenil] latex Allergy Severe Hives Verified 01/19/20 08:57 NSAIDS (Non-Steroidal Allergy Severe Rash Verified 01/19/20 08:57 Anti-Inflamma penicillamine Allergy Severe Blisters Verified 01/19/20 08:57 [From Cuprimine] vancomycin Allergy Severe Rash Verified 01/19/20 08:57 warfarin [From Coumadin] Allergy Severe Itching Verified 01/19/20 08:57 daptomycin AdvReac Severe Muscle Verified 01/19/20 08:57 Weakness green pepper AdvReac Severe Diarrhea Verified 01/19/20 08:57 lactose AdvReac Severe Diarrhea Verified 01/19/20 08:57 pentoxifylline [From Trental] AdvReac Severe Nausea and Verified 01/19/20 08:57 Vomiting sulfamethoxazole AdvReac Severe Nausea and Verified 01/19/20 08:57 [From Septra] Vomiting trimethoprim [From Septra] AdvReac Severe Nausea and Verified 01/19/20 08:57 Vomiting Home Meds: Home Meds Cholecalciferol (Vitamin D3) [Vitamin D3] 2,000 unit PO DAILY 05/13/18 [History] Lutein 40 mg PO DAILY 05/13/18 [History] Methenamine Hippurate [Hiprex] 1 gm PO BID 05/13/18 [History] traZODone HCl [Trazodone HCl] 50 mg PO BEDTIME 05/13/18 [History] Acetaminophen [Tylenol] 650 mg PO Q4HR PRN 12/06/19 [History] Alfuzosin HCl [Alfuzosin HCl ER] 10 mg PO DAILY 12/06/19 [History] Ascorbic Acid 500 mg PO BID 12/06/19 [History] Calcium Carbonate 500 mg PO Q4HR PRN 12/06/19 [History] Calcium Carbonate/Vitamin D3 [Calcium Carbonate/Vitamin D 600 MG-200 Unit] 1 tab PO BID 12/06/19 [History] Cetirizine [ZyrTEC] 10 mg PO DAILY 12/06/19 [History] Cholestyramine/Sucrose [Cholestyramine] 4 g PO DAILY 12/06/19 [History] Cranberry Fruit Concentrate [Cranberry] 450 mg PO BID 12/06/19 [History] Diclofenac/Hyaluronate/Niacin [Diclofen 3%-Hyaluron 2%-Niac4%] 2 gm TOP BID PRN 12/06/19 [History] Ferrous Sulfate 325 mg PO DAILY 12/06/19 [History] Folic Acid 1 mg PO DAILY 12/06/19 [History] Loperamide [Imodium AD] 2 mg PO DAILY PRN 12/06/19 [History] Lycopene 10 mg PO DAILY 12/06/19 [History] Magnesium Oxide 400 mg PO BID 12/06/19 [History] Multivitamin [Multivitamins] 1 tab PO DAILY 12/06/19 [History] Ondansetron [Zofran ODT] 1 tab PO Q6HR PRN 12/06/19 [History] Pantoprazole Sodium [Protonix] 40 mg PO DAILY 12/06/19 [History] diphenhydrAMINE [Benadryl] 25 mg PO Q4HR PRN 12/06/19 [History] hydrOXYzine HCL [Hydroxyzine HCl] 10 mg PO TID 12/06/19 [History] metHOTREXate sodium [Methotrexate] 17.5 mg PO WEEKLY 12/06/19 [History] oxyCODONE 7.5 mg PO Q6H PRN 12/06/19 [History] rOPINIRole [Requip] 0.5 mg PO BEDTIME 12/06/19 [History] Albuterol Sulfate [Proair Respiclick] 2 puff INH Q4H PRN 01/19/20 [History] DULoxetine [Cymbalta] 60 mg PO DAILY 01/19/20 [History] Fludrocortisone [Florinef] 0.1 mg PO DAILY 01/19/20 [History] Nystatin [Nyamyc] 1 applic TOP BID PRN 01/19/20 [History] predniSONE [Prednisone] 9 mg PO DAILY 01/19/20 [History] Past Medical History HEENT History: Reports: Other (See Below) Other HEENT History: wears glasses Cardiovascular History: Reports: Hypertension, PVD Other Cardiovascular History: pt states no hx of HTN Gastrointestinal History: Reports: GERD Genitourinary History: Reports: Renal Disease, Urinary Incontinence, UTI, Recurrent Musculoskeletal History: Reports: Fibromyalgia, RA, Other (See Below) Other Musculoskeletal History: broke both of knees, broke four ribs, 3 hip replacements, broke pelvic bone, broke left hand, broke collar bone, bunyonectomy bilateral feet Neurological History: Reports: Neuropathy, Peripheral, Other (See Below) Other Neuro History: restless leg syndrom Endocrine/Metabolic History: Reports: Diabetes, Type II Hematologic History: Reports: Folic Acid Dermatologic History: Reports: Other (See Below) Other Dermatologic History: ulcers to bilateral legs - Infectious Disease History Infectious Disease History: Reports: Chicken Pox, Measles, MRSA, Other (See Below) Other Infectious Disease History: pt states hx of mrsa in feet in 1985 and 2014 - Past Surgical History GI Surgical History: Reports: None Social & Family History - Family History Family Medical History: Noncontributory - Tobacco Use Smoking Status *Q: Never Smoker Second Hand Smoke Exposure: No - Caffeine Use Caffeine Use: Reports: None - Recreational Drug Use Recreational Drug Use: No ED ROS GENERAL - Review of Systems Review Of Systems: See Below Constitutional: Reports: Fever HEENT: Reports: No Symptoms Respiratory: Reports: No Symptoms Cardiovascular: Reports: No Symptoms Endocrine: Reports: No Symptoms GI/Abdominal: Reports: No Symptoms : Reports: No Symptoms Musculoskeletal: Reports: Joint Pain ED EXAM, GENERAL - Physical Exam Exam: See Below Exam Limited By: No Limitations General Appearance: Alert, No Apparent Distress Ears: Normal External Exam Nose: Normal Inspection Head: Atraumatic, Normocephalic Neck: Normal Inspection Respiratory/Chest: No Respiratory Distress, Lungs Clear, Normal Breath Sounds Cardiovascular: Regular Rate, Rhythm, No Edema, No Murmur GI/Abdominal: Soft, Non-Tender, No Organomegaly, No Mass Extremities: Other (Erythema and some broken skin to both lower legs.) Course - Vital Signs Last Recorded V/S: Last Vital Signs Temp 100.1 F 01/19/20 12:18 Pulse 92 01/19/20 12:18 Resp 18 01/19/20 12:18 BP 127/77 01/19/20 12:18 Pulse Ox 92 L 01/19/20 12:18 - Orders/Labs/Meds Orders: Active Orders 24 hr Category Date Time Status Implanted Port Access [RC] DAILY Care 01/19/20 09:05 Active CULTURE BLOOD [BC] Stat Lab 01/19/20 09:28 Received CULTURE BLOOD [BC] Stat Lab 01/19/20 09:39 Received CULTURE URINE [RM] Stat Lab 01/19/20 12:00 Received Blood Culture x2 Reflex Set [OM.PC] Stat Oth 01/19/20 09:06 Ordered Labs: Laboratory Tests 01/19/20 01/19/20 01/19/20 Range/Units 09:28 09:28 09:39 WBC 10.66 H (3.98-10.04) K/mm3 RBC 3.65 L (3.98-5.22) M/mm3 Hgb 11.5 D (11.2-15.7) gm/dl Hct 36.2 (34.1-44.9) % MCV 99.2 H (79.4-94.8) fl MCH 31.5 (25.6-32.2) pg MCHC 31.8 L (32.2-35.5) g/dl RDW Std Deviation 50.7 H (36.4-46.3) fL Plt Count 411 H D (182-369) K/mm3 MPV 8.8 L (9.4-12.3) fl Neut % (Auto) 68.3 (34.0-71.1) % Lymph % (Auto) 24.3 (19.3-51.7) % [place] % (Auto) 5.7 (4.7-12.5) % Eos % (Auto) 1.1 (0.7-5.8) Baso % (Auto) 0.4 (0.1-1.2) % Neut # (Auto) 7.28 H (1.56-6.13) K/mm3 Lymph # (Auto) 2.59 (1.18-3.74) K/mm3 [place] # (Auto) 0.61 H (0.24-0.36) K/mm3 Eos # (Auto) 0.12 (0.04-0.36) K/mm3 Baso # (Auto) 0.04 (0.01-0.08) K/mm3 ESR 84 H (0-20) mm/hr Sodium 139 (136-145) mEq/L Potassium 3.9 (3.5-5.1) mEq/L Chloride 103 (98-107) mEq/L Carbon Dioxide 27 (21-32) mEq/L Anion Gap 12.9 (5-15) BUN 21 H (7-18) mg/dL Creatinine 1.0 (0.55-1.02) mg/dL Est Cr Clr Drug Dosing TNP Estimated GFR (MDRD) 56 (>60) mL/min BUN/Creatinine Ratio 21.0 H (14-18) Glucose 105 (80-115) mg/dL Calcium 7.7 L (8.5-10.1) mg/dL Total Bilirubin 1.1 H (0.2-1.0) mg/dL AST 19 (15-37) U/L ALT 15 (14-59) U/L Alkaline Phosphatase 65 (46-116) U/L C-Reactive Protein 8.2 H* (<1.0) mg/dL Total Protein 6.9 (6.4-8.2) g/dl Albumin 2.4 L (3.4-5.0) g/dl Globulin 4.5 gm/dL Albumin/Globulin Ratio 0.5 L (1-2) Urine Color (Yellow) Urine Appearance (Clear) Urine pH (5.0-8.0) Ur Specific [place] (1.005-1.030) Urine Protein (Negative) Urine Glucose (UA) (Negative) Urine Ketones (Negative) Urine Occult Blood (Negative) Urine Nitrite (Negative) Urine Bilirubin (Negative) Urine Urobilinogen (0.2-1.0) Ur Leukocyte Esterase (Negative) Urine RBC (0-5) /hpf Urine WBC (0-5) /hpf Urine WBC Clumps (NOT SEEN) /hpf Ur Squamous Epith Cells (0-5) /hpf Urine Bacteria (FEW) /hpf Urine Mucus (FEW) /hpf 01/19/20 Range/Units 12:00 WBC (3.98-10.04) K/mm3 RBC (3.98-5.22) M/mm3 Hgb (11.2-15.7) gm/dl Hct (34.1-44.9) % MCV (79.4-94.8) fl MCH (25.6-32.2) pg MCHC (32.2-35.5) g/dl RDW Std Deviation (36.4-46.3) fL Plt Count (182-369) K/mm3 MPV (9.4-12.3) fl Neut % (Auto) (34.0-71.1) % Lymph % (Auto) (19.3-51.7) % [place] % (Auto) (4.7-12.5) % Eos % (Auto) (0.7-5.8) Baso % (Auto) (0.1-1.2) % Neut # (Auto) (1.56-6.13) K/mm3 Lymph # (Auto) (1.18-3.74) K/mm3 [place] # (Auto) (0.24-0.36) K/mm3 Eos # (Auto) (0.04-0.36) K/mm3 Baso # (Auto) (0.01-0.08) K/mm3 ESR (0-20) mm/hr Sodium (136-145) mEq/L Potassium (3.5-5.1) mEq/L Chloride (98-107) mEq/L Carbon Dioxide (21-32) mEq/L Anion Gap (5-15) BUN (7-18) mg/dL Creatinine (0.55-1.02) mg/dL Est Cr Clr Drug Dosing Estimated GFR (MDRD) (>60) mL/min BUN/Creatinine Ratio (14-18) Glucose (80-115) mg/dL Calcium (8.5-10.1) mg/dL Total Bilirubin (0.2-1.0) mg/dL AST (15-37) U/L ALT (14-59) U/L Alkaline Phosphatase (46-116) U/L C-Reactive Protein (<1.0) mg/dL Total Protein (6.4-8.2) g/dl Albumin (3.4-5.0) g/dl Globulin gm/dL Albumin/Globulin Ratio (1-2) Urine Color Yellow (Yellow) Urine Appearance Clear (Clear) Urine pH 6.0 (5.0-8.0) Ur Specific [place] 1.020 (1.005-1.030) Urine Protein Negative (Negative) Urine Glucose (UA) Negative (Negative) Urine Ketones Negative (Negative) Urine Occult Blood Negative (Negative) Urine Nitrite Positive H (Negative) Urine Bilirubin Negative (Negative) Urine Urobilinogen 0.2 (0.2-1.0) Ur Leukocyte Esterase 1+ H (Negative) Urine RBC 0-5 (0-5) /hpf Urine WBC 40-50 H (0-5) /hpf Urine WBC Clumps Few (NOT SEEN) /hpf Ur Squamous Epith Cells 0-5 (0-5) /hpf Urine Bacteria Many H (FEW) /hpf Urine Mucus Not seen (FEW) /hpf Meds: Medications Discontinued Medications Generic Name Dose Route Start Last Admin Trade Name Freq PRN Reason Stop Dose Admin Acetaminophen 975 mg 01/19/20 12:24 01/19/20 12:45 Tylenol PO 01/19/20 12:25 975 mg NOW ONE Administration Methylprednisolone Sodium Succinate 125 mg 01/19/20 09:06 01/19/20 09:29 Solu-Medrol IVPUSH 01/19/20 09:07 125 mg ONETIME ONE Administration - Re-Assessments/Exams Free Text/Narrative Re-Assessment/Exam: 01/19/20 09:31 I ordered my nurse to access her port, saline lock, solu-medrol 125mg IV, labs, UA, blood cultures and lactic acid. 01/19/20 12:49 Her WBC was elevated at 10.66. Her CRP was elevated at 8.2. 01/19/20 12:50 Her ESR is elevated. Her UA shows a UTI. I did ordered urine culture. I called the hospitalist service and they will admit the patient. Departure - Departure Time of Disposition: 12:55 Disposition: Admitted As Inpatient 66 Condition: Good, Fair Clinical Impression: Rheumatoid arthritis flare Ulcers of both lower extremities Qualifiers: Non-pressure ulcer stage: unspecified non-pressure ulcer stage Qualified Code(s ): L97.919 - Non-pressure chronic ulcer of unspecified part of right lower leg with unspecified severity; L97.929 - Non-pressure chronic ulcer of unspecified part of left lower leg with unspecified severity UTI (urinary tract infection) Qualifiers: Urinary tract infection type: site unspecified Hematuria presence: without hematuria Qualified Code(s): N39.0 - Urinary tract infection, site not specified Arthralgia Qualifiers: Joint pain location: unspecified Qualified Code(s): M25.50 - Pain in unspecified joint - Discharge Information Referrals: Shabnam Ji MD [Primary Care Provider] - Forms: ED Department Discharge Sepsis Event Note - Evaluation Sepsis Screening Result: No Definite Risk - Focused Exam Vital Signs: Vital Signs Temp Temp Pulse Resp BP Pulse Ox 01/19/20 12:18 100.1 F 92 18 127/77 92 L 01/19/20 08:51 99.1 F 108 H 16 123/78 91 L Date Exam was Performed: 01/19/20 Time Exam was Performed: 12:49 - My Orders Last 24 Hours: My Active Orders 01/19/20 09:05 Implanted Port Access [RC] DAILY 01/19/20 09:06 Blood Culture x2 Reflex Set [OM.PC] Stat 01/19/20 09:28 CULTURE BLOOD [BC] Stat 01/19/20 09:39 CULTURE BLOOD [BC] Stat 01/19/20 12:00 CULTURE URINE [RM] Stat - Assessment/Plan Last 24 Hours: My Active Orders 01/19/20 09:05 Implanted Port Access [RC] DAILY 01/19/20 09:06 Blood Culture x2 Reflex Set [OM.PC] Stat 01/19/20 09:28 CULTURE BLOOD [BC] Stat 01/19/20 09:39 CULTURE BLOOD [BC] Stat 01/19/20 12:00 CULTURE URINE [RM] Stat
[2020-01-19] MEDS ORDERED: Acetaminophen 325 MG Tab PO ONE (12:24)
[2020-01-19] MEDS ORDERED: Meropenem 1 GM in Sodium Chloride 0.9% 100 ML IV SCH (13:15)
[2020-01-19] MEDS ORDERED: NIACIN TOP PRN (13:20)
[2020-01-19] MEDS ORDERED: DICLOFENAC TOP PRN (13:20)
[2020-01-19] MEDS ORDERED: HYALURONATE TOP PRN (13:20)
[2020-01-19] MEDS ORDERED: [UNRECOGNIZED DRUG - OTHER] TOP PRN (13:20)
[2020-01-19] MEDS ORDERED: Acetaminophen 650 MG Supp RECTAL PRN (13:29)
[2020-01-19] MEDS ORDERED: Morphine 2 MG/ML Syringe IVPUSH PRN (13:29)
[2020-01-19] MEDS ORDERED: hydrALAZINE 20 MG/ML SDV IVPUSH PRN (13:29)
[2020-01-19] MEDS ORDERED: methylPREDNISolone Sodium Succinate 40 MG/1 ML SDV IVPUSH SCH (13:30)
--- NOTE | 2020-01-19 14:20 | PCM.HP.2 ---
H&P History of Present Illness - General Date of Service: 01/19/20 Admit Problem/Dx: Admission Diagnosis/Problem Admission Diagnosis/Problem UTI, Urinary tract infectious disease Severe joint pain Source of Information: Patient History Limitations: Reports: No Limitations - History of Present Illness Initial Comments - Free Text/Narative: Patient is a pleasant 64 yo female, patient of Dr. Ji, with the past medical history HTN, RA, frequent UTIs, fibromyalgia, non-pressure chronic ulcers, urinary retention/incontinence, GERD, restless leg syndrome, chronic renal failure, and PVD who comes to ED via EMS due to severe pain in her joints , primarily the right shoulder. Patient reports moving some boxes at yesterday afternoon and around 3 pm she developed sudden severe joint pain and has not been able to move at all. She is wheelchair bound but lives by herself and independently. She denies any GARNETT, dizziness, lightheadedness, fever or chills, SOB, CP or palpitations, abdominal pain, N/V, dysuria, diarrhea or constipation. Patient reports she self-cath 5 times daily but ED RN reports patient was able to void on her own with no issues. In the ED, patient was found in moderate to severe distress due to pain. Initial work up reveals elevated ESR and CRP. Patient was also found with positive nitrite and urine WBC , leukocytosis with left shit. Her initial vital signs reveal fever of 100.1 F and tachycardia HR 92. In the ED, patient received Solumedrol 125 mg IV x1 which did improved her pain but not significantly. Therefore, hospitalist service was contacted to admit patient for further care of severe joint pain secondary to RA exacerbation, leukocytosis, UTI, and debilitating/deconditioned status. Bilateral Arm Pain Score (Numeric/FACES): 9 - Related Data Allergies/Adverse Reactions: Allergies Allergy/AdvReac Type Severity Reaction Status Date / Time adhesive Allergy Severe Rash Verified 01/19/20 08:57 alginic acid Allergy Severe Rash Verified 01/19/20 08:57 [From [facility] (onesimo alginate-honey)] amikacin Allergy Severe Hives Verified 01/19/20 08:57 cefazolin Allergy Severe Hives Verified 01/19/20 08:57 clindamycin Allergy Severe Rash Verified 01/19/20 08:57 cyclobenzaprine Allergy Severe Cannot Verified 01/19/20 08:57 Remember honey Allergy Severe Rash Verified 01/19/20 08:57 [From MediHoney (onesimo alginate-honey)] hydroxychloroquine Allergy Severe Other Verified 01/19/20 08:57 [From Plaquenil] latex Allergy Severe Hives Verified 01/19/20 08:57 NSAIDS (Non-Steroidal Allergy Severe Rash Verified 01/19/20 08:57 Anti-Inflamma penicillamine Allergy Severe Blisters Verified 01/19/20 08:57 [From Cuprimine] vancomycin Allergy Severe Rash Verified 01/19/20 08:57 warfarin [From Coumadin] Allergy Severe Itching Verified 01/19/20 08:57 daptomycin AdvReac Severe Muscle Verified 01/19/20 08:57 Weakness green pepper AdvReac Severe Diarrhea Verified 01/19/20 08:57 lactose AdvReac Severe Diarrhea Verified 01/19/20 08:57 pentoxifylline [From Trental] AdvReac Severe Nausea and Verified 01/19/20 08:57 Vomiting sulfamethoxazole AdvReac Severe Nausea and Verified 01/19/20 08:57 [From Septra] Vomiting trimethoprim [From Septra] AdvReac Severe Nausea and Verified 01/19/20 08:57 Vomiting Home Medications: Home Meds Cholecalciferol (Vitamin D3) [Vitamin D3] 2,000 unit PO DAILY 05/13/18 [History] Lutein 40 mg PO DAILY 05/13/18 [History] Methenamine Hippurate [Hiprex] 1 gm PO BID 05/13/18 [History] traZODone HCl [Trazodone HCl] 50 mg PO BEDTIME 05/13/18 [History] Acetaminophen [Tylenol] 650 mg PO Q4HR PRN 12/06/19 [History] Alfuzosin HCl [Alfuzosin HCl ER] 10 mg PO DAILY 12/06/19 [History] Ascorbic Acid 500 mg PO BID 12/06/19 [History] Calcium Carbonate 500 mg PO Q4HR PRN 12/06/19 [History] Calcium Carbonate/Vitamin D3 [Calcium Carbonate/Vitamin D 600 MG-200 Unit] 1 tab PO BID 12/06/19 [History] Cetirizine [ZyrTEC] 10 mg PO DAILY 12/06/19 [History] Cholestyramine/Sucrose [Cholestyramine] 4 g PO DAILY 12/06/19 [History] Cranberry Fruit Concentrate [Cranberry] 450 mg PO BID 12/06/19 [History] Diclofenac/Hyaluronate/Niacin [Diclofen 3%-Hyaluron 2%-Niac4%] 2 gm TOP BID PRN 12/06/19 [History] Ferrous Sulfate 325 mg PO DAILY 12/06/19 [History] Folic Acid 1 mg PO DAILY 12/06/19 [History] Loperamide [Imodium AD] 2 mg PO DAILY PRN 12/06/19 [History] Lycopene 10 mg PO DAILY 12/06/19 [History] Magnesium Oxide 400 mg PO BID 12/06/19 [History] Multivitamin [Multivitamins] 1 tab PO DAILY 12/06/19 [History] Ondansetron [Zofran ODT] 1 tab PO Q6HR PRN 12/06/19 [History] Pantoprazole Sodium [Protonix] 40 mg PO DAILY 12/06/19 [History] diphenhydrAMINE [Benadryl] 25 mg PO Q4HR PRN 12/06/19 [History] hydrOXYzine HCL [Hydroxyzine HCl] 10 mg PO TID 12/06/19 [History] metHOTREXate sodium [Methotrexate] 17.5 mg PO WEEKLY 12/06/19 [History] oxyCODONE 7.5 mg PO Q6H PRN 12/06/19 [History] rOPINIRole [Requip] 0.5 mg PO BEDTIME 12/06/19 [History] Albuterol Sulfate [Proair Respiclick] 2 puff INH Q4H PRN 01/19/20 [History] DULoxetine [Cymbalta] 60 mg PO DAILY 01/19/20 [History] Fludrocortisone [Florinef] 0.1 mg PO DAILY 01/19/20 [History] Nystatin [Nyamyc] 1 applic TOP BID PRN 01/19/20 [History] predniSONE [Prednisone] 9 mg PO DAILY 01/19/20 [History] Past Medical History HEENT History: Reports: Other (See Below) Other HEENT History: wears glasses Cardiovascular History: Reports: Hypertension, PVD Other Cardiovascular History: pt states no hx of HTN Gastrointestinal History: Reports: GERD Genitourinary History: Reports: Renal Disease, Urinary Incontinence, UTI, Recurrent Musculoskeletal History: Reports: Fibromyalgia, RA, Other (See Below) Other Musculoskeletal History: broke both of knees, broke four ribs, 3 hip replacements, broke pelvic bone, broke left hand, broke collar bone, bunyonectomy bilateral feet Neurological History: Reports: Neuropathy, Peripheral, Other (See Below) Other Neuro History: restless leg syndrom Endocrine/Metabolic History: Reports: Diabetes, Type II Hematologic History: Reports: Folic Acid Dermatologic History: Reports: Other (See Below) Other Dermatologic History: ulcers to bilateral legs - Infectious Disease History Infectious Disease History: Reports: Chicken Pox, Measles, MRSA, Other (See Below) Other Infectious Disease History: pt states hx of mrsa in feet in 1985 and 2014 - Past Surgical History GI Surgical History: Reports: None Social & Family History - Family History Family Medical History: Noncontributory - Tobacco Use Smoking Status *Q: Never Smoker Second Hand Smoke Exposure: No - Caffeine Use Caffeine Use: Reports: None - Recreational Drug Use Recreational Drug Use: No H&P Review of Systems - Review of Systems: Review Of Systems: See Below General: Reports: Weakness HEENT: Reports: No Symptoms Pulmonary: Reports: No Symptoms Cardiovascular: Reports: No Symptoms Gastrointestinal: Reports: No Symptoms Genitourinary: Reports: Incontinence, Retention Musculoskeletal: Reports: Shoulder Pain, Arm Pain, Leg Pain, Joint Pain Skin: Reports: Wound Psychiatric: Reports: No Symptoms Neurological: Reports: Weakness, Other (wheelchair bound ) Hematologic/Lymphatic: Reports: No Symptoms Immunologic: Reports: No Symptoms Exam - Exam Exam: See Below - Vital Signs Vital Signs: Last Vital Signs Temp 100.1 F 01/19/20 12:18 Pulse 92 01/19/20 12:18 Resp 18 01/19/20 12:18 BP 127/77 01/19/20 12:18 Pulse Ox 92 L 01/19/20 12:18 - Exam General: Alert, Oriented, Cooperative HEENT: Conjunctiva Clear, EACs Clear, EOMI Neck: Supple, Trachea Midline Lungs: Clear to Auscultation, Normal Respiratory Effort Cardiovascular: Regular Rate, Regular Rhythm GI/Abdominal Exam: Soft, Non-Tender, No Distention, Other (Diminished bowel sounds ) (Female) Exam: Deferred Rectal (Female) Exam: Deferred Back Exam: Normal Inspection Extremities: No Pedal Edema, Arm Pain, Leg Pain, Limited Range of Motion, Other (joint pain, shoulder/elbow) Skin: Warm, Dry, Intact, Wound, Decubitis (non-pressure ulcerative wound over the anterolateral and anteromedial bilaterally (covered with dressings)), Other Neurological: Cranial Nerves Intact, Normal Speech, Sensation Intact Neuro Extensive - Mental Status: Alert, Oriented x3, Normal Mood/Affect, Normal Cognition Neuro Extensive - Motor, Sensory, Reflexes: CN II-XII Intact Psychiatric: Alert, Normal Affect, Normal Mood - Patient Data Lab Results Last 24 hrs: Laboratory Results - last 24 hr 01/19/20 01/19/20 01/19/20 Range/Units 09:28 09:28 09:39 WBC 10.66 H (3.98-10.04) K/mm3 RBC 3.65 L (3.98-5.22) M/mm3 Hgb 11.5 D (11.2-15.7) gm/dl Hct 36.2 (34.1-44.9) % MCV 99.2 H (79.4-94.8) fl MCH 31.5 (25.6-32.2) pg MCHC 31.8 L (32.2-35.5) g/dl RDW Std Deviation 50.7 H (36.4-46.3) fL Plt Count 411 H D (182-369) K/mm3 MPV 8.8 L (9.4-12.3) fl Neut % (Auto) 68.3 (34.0-71.1) % Lymph % (Auto) 24.3 (19.3-51.7) % Person % (Auto) 5.7 (4.7-12.5) % Eos % (Auto) 1.1 (0.7-5.8) Baso % (Auto) 0.4 (0.1-1.2) % Neut # (Auto) 7.28 H (1.56-6.13) K/mm3 Lymph # (Auto) 2.59 (1.18-3.74) K/mm3 Person # (Auto) 0.61 H (0.24-0.36) K/mm3 Eos # (Auto) 0.12 (0.04-0.36) K/mm3 Baso # (Auto) 0.04 (0.01-0.08) K/mm3 ESR 84 H (0-20) mm/hr Sodium 139 (136-145) mEq/L Potassium 3.9 (3.5-5.1) mEq/L Chloride 103 (98-107) mEq/L Carbon Dioxide 27 (21-32) mEq/L Anion Gap 12.9 (5-15) BUN 21 H (7-18) mg/dL Creatinine 1.0 (0.55-1.02) mg/dL Est Cr Clr Drug Dosing TNP Estimated GFR (MDRD) 56 (>60) mL/min BUN/Creatinine Ratio 21.0 H (14-18) Glucose 105 (80-115) mg/dL Calcium 7.7 L (8.5-10.1) mg/dL Total Bilirubin 1.1 H (0.2-1.0) mg/dL AST 19 (15-37) U/L ALT 15 (14-59) U/L Alkaline Phosphatase 65 (46-116) U/L C-Reactive Protein 8.2 H* (<1.0) mg/dL Total Protein 6.9 (6.4-8.2) g/dl Albumin 2.4 L (3.4-5.0) g/dl Globulin 4.5 gm/dL Albumin/Globulin Ratio 0.5 L (1-2) Urine Color (Yellow) Urine Appearance (Clear) Urine pH (5.0-8.0) Ur Specific Sebastian (1.005-1.030) Urine Protein (Negative) Urine Glucose (UA) (Negative) Urine Ketones (Negative) Urine Occult Blood (Negative) Urine Nitrite (Negative) Urine Bilirubin (Negative) Urine Urobilinogen (0.2-1.0) Ur Leukocyte Esterase (Negative) Urine RBC (0-5) /hpf Urine WBC (0-5) /hpf Urine WBC Clumps (NOT SEEN) /hpf Ur Squamous Epith Cells (0-5) /hpf Urine Bacteria (FEW) /hpf Urine Mucus (FEW) /hpf 01/19/20 Range/Units 12:00 WBC (3.98-10.04) K/mm3 RBC (3.98-5.22) M/mm3 Hgb (11.2-15.7) gm/dl Hct (34.1-44.9) % MCV (79.4-94.8) fl MCH (25.6-32.2) pg MCHC (32.2-35.5) g/dl RDW Std Deviation (36.4-46.3) fL Plt Count (182-369) K/mm3 MPV (9.4-12.3) fl Neut % (Auto) (34.0-71.1) % Lymph % (Auto) (19.3-51.7) % Person % (Auto) (4.7-12.5) % Eos % (Auto) (0.7-5.8) Baso % (Auto) (0.1-1.2) % Neut # (Auto) (1.56-6.13) K/mm3 Lymph # (Auto) (1.18-3.74) K/mm3 Person # (Auto) (0.24-0.36) K/mm3 Eos # (Auto) (0.04-0.36) K/mm3 Baso # (Auto) (0.01-0.08) K/mm3 ESR (0-20) mm/hr Sodium (136-145) mEq/L Potassium (3.5-5.1) mEq/L Chloride (98-107) mEq/L Carbon Dioxide (21-32) mEq/L Anion Gap (5-15) BUN (7-18) mg/dL Creatinine (0.55-1.02) mg/dL Est Cr Clr Drug Dosing Estimated GFR (MDRD) (>60) mL/min BUN/Creatinine Ratio (14-18) Glucose (80-115) mg/dL Calcium (8.5-10.1) mg/dL Total Bilirubin (0.2-1.0) mg/dL AST (15-37) U/L ALT (14-59) U/L Alkaline Phosphatase (46-116) U/L C-Reactive Protein (<1.0) mg/dL Total Protein (6.4-8.2) g/dl Albumin (3.4-5.0) g/dl Globulin gm/dL Albumin/Globulin Ratio (1-2) Urine Color Yellow (Yellow) Urine Appearance Clear (Clear) Urine pH 6.0 (5.0-8.0) Ur Specific Sebastian 1.020 (1.005-1.030) Urine Protein Negative (Negative) Urine Glucose (UA) Negative (Negative) Urine Ketones Negative (Negative) Urine Occult Blood Negative (Negative) Urine Nitrite Positive H (Negative) Urine Bilirubin Negative (Negative) Urine Urobilinogen 0.2 (0.2-1.0) Ur Leukocyte Esterase 1+ H (Negative) Urine RBC 0-5 (0-5) /hpf Urine WBC 40-50 H (0-5) /hpf Urine WBC Clumps Few (NOT SEEN) /hpf Ur Squamous Epith Cells 0-5 (0-5) /hpf Urine Bacteria Many H (FEW) /hpf Urine Mucus Not seen (FEW) /hpf Result Diagrams: 01/19/20 09:28 01/19/20 09:39 Sepsis Event Note - Evaluation Sepsis Screening Result: No Definite Risk - Focused Exam Vital Signs: Vital Signs Temp Temp Pulse Resp BP Pulse Ox 01/19/20 12:18 100.1 F 92 18 127/77 92 L 01/19/20 08:51 99.1 F 108 H 16 123/78 91 L Date Exam was Performed: 01/19/20 Time Exam was Performed: 14:07 Problem List Initiated/Reviewed/Updated: Yes Orders Last 24hrs: Active Orders 24 hr Category Date Time Status Admission Status [Patient Status] [ADT] Routine ADT 01/19/20 13:09 Active Aspiration Precautions [RC] ASDIRECTED Care 01/19/20 13:31 Active Communication Order [RC] ASDIRECTED Care 01/19/20 13:30 Active Communication Order [RC] ASDIRECTED Care 01/19/20 13:30 Active EKG Documentation Completion [RC] ROUTINE Care 01/19/20 13:30 Active Enema [RC] Q2D Care 01/19/20 13:30 Active Head of Bed Elevation [RC] ASDIRECTED Care 01/19/20 13:30 Active Height and Weight [RC] DAILY Care 01/19/20 13:30 Active Implanted Port Access [RC] DAILY Care 01/19/20 09:05 Active Intake and Output Strict [RC] Q1H Care 01/19/20 13:30 Active Notify Provider Vital Signs [RC] ASDIRECTED Care 01/19/20 13:30 Active Notify Provider [RC] ASDIRECTED Care 01/19/20 13:30 Active Notify Provider [RC] PRN Care 01/19/20 13:30 Active Oxygen Therapy [RC] ASDIRECTED Care 01/19/20 13:30 Active Up to Chair [RC] ASDIRECTED Care 01/19/20 13:30 Active Vital Signs [RC] PER UNIT ROUTINE Care 01/19/20 13:30 Active Wound Care [RC] DAILY Care 01/19/20 13:53 Active Consult to Case Management/Cage Maker [CONS] Cons 01/19/20 13:30 Active Routine OT Evaluation and Treatment [CONS] Routine Cons 01/19/20 13:30 Active PT Evaluation and Treatment [CONS] Routine Cons 01/19/20 13:30 Active 2 Gram Sodium Diet [DIET] Diet 01/19/20 Dinner Active Chest 1V Frontal [CR] Routine Exams 01/19/20 13:35 Ordered CBC WITH AUTO DIFF [HEME] AM Lab 01/20/20 05:11 Ordered COMPREHENSIVE METABOLIC PN,CMP [CHEM] AM Lab 01/20/20 05:11 Ordered CRP [C-REACTIVE PROTEIN] [CHEM] Routine Lab 01/20/20 05:00 Ordered CULTURE BLOOD [BC] Stat Lab 01/19/20 09:28 Received CULTURE BLOOD [BC] Stat Lab 01/19/20 09:39 Received CULTURE URINE [RM] Routine Lab 01/19/20 13:35 Ordered CULTURE URINE [RM] Stat Lab 01/19/20 12:00 Received LACTATE SEPSIS W/ REFLEX [CHEM] Routine Lab 01/19/20 13:34 Ordered PROCALCITONIN [REF] Q2D Lab 01/19/20 13:39 Ordered PROCALCITONIN [REF] Q2D Lab 01/21/20 13:39 Ordered SEDIMENTATION RATE AUTO [HEME] Routine Lab 01/20/20 05:00 Ordered Acetaminophen [Tylenol] Med 01/19/20 13:29 Active 650 mg PO Q6H PRN Acetaminophen [Tylenol] Med 01/19/20 13:29 Active 650 mg RECTAL Q6H PRN Acetaminophen/HYDROcodone [[place] 325-5 MG] Med 01/19/20 13:29 Active 1 tab PO Q6H PRN Cetirizine Med 01/20/20 09:00 Active 10 mg PO DAILY DULoxetine Med 01/20/20 09:00 Active 60 mg PO DAILY Diclofenac/Hyaluronate/Niacin [Diclofen 3%-Hyaluron 2%- Med 01/19/20 13:20 Active Niac4%] 2 gm TOP BID PRN Docusate Sodium/Sennosides [Senna Plus] Med 01/19/20 21:00 Active 2 tab PO BID Enoxaparin [Lovenox] Med 01/19/20 13:45 Active 40 mg SUBCUT DAILY Ferrous Sulfate [Ferrous Sulfate] Med 01/20/20 09:00 Active 325 mg PO DAILY Fludrocortisone [Florinef] Med 01/20/20 09:00 Active 0.1 mg PO DAILY Folic Acid Med 01/20/20 09:00 Active 1 mg PO DAILY Lutein [Lutein] Med 01/20/20 09:00 Active 40 mg PO DAILY Lycopene [Lycopene] Med 01/20/20 09:00 Active 10 mg PO DAILY Meropenem [Merrem] 1 gm Med 01/19/20 13:15 Active Sodium Chloride 0.9% [Normal Saline] 100 ml IV Q8H Morphine Med 01/19/20 13:29 Active 2 mg IVPUSH Q4H PRN Nystatin [Nystop] Med 01/19/20 13:20 Active 0 gm TOP BID PRN Ondansetron [Zofran] Med 01/19/20 13:29 Active 4 mg IVPUSH Q4H PRN Sodium Chloride 0.9% [Normal Saline] 1,000 ml Med 01/19/20 13:30 Active IV ASDIRECTED diphenhydrAMINE [Benadryl] Med 01/19/20 13:29 Active 25 mg IVPUSH Q4H PRN hydrALAZINE [Apresoline] Med 01/19/20 13:29 Active 10 mg IVPUSH Q6H PRN methylPREDNISolone Sod Succ [Solu-MEDROL] Med 01/19/20 13:30 Active 80 mg IVPUSH Q8H oxyCODONE Med 01/19/20 13:20 Active 7.5 mg PO Q6H PRN rOPINIRole Med 01/19/20 21:00 Active 0.5 mg PO BEDTIME traZODone Med 01/19/20 21:00 Active 50 mg PO BEDTIME Antiembolic Hose [OM.PC] Routine Oth 01/19/20 13:30 Ordered Blood Culture x2 Reflex Set [OM.PC] Stat Oth 01/19/20 09:06 Ordered Post Void Residual [OM.PC] Routine Oth 01/19/20 13:30 Ordered Resuscitation Status Routine Resus Stat 01/19/20 13:29 Ordered Medication Orders Acetaminophen (Tylenol) 650 mg PO Q6H PRN PRN Reason: Pain (Mild 1-3) or Fever Acetaminophen (Tylenol) 650 mg RECTAL Q6H PRN PRN Reason: Pain (Mild 1-3) or Fever Hydrocodone Bitart/Acetaminophen ([place] 325-5 Mg) 1 tab PO Q6H PRN PRN Reason: Pain (moderate 4-6) Diphenhydramine HCl (Benadryl) 25 mg IVPUSH Q4H PRN PRN Reason: Restlessness or Allergies Enoxaparin Sodium (Lovenox) 40 mg SUBCUT DAILY [facility] Fludrocortisone Acetate (Florinef) 0.1 mg PO DAILY [facility] Folic Acid (Folic Acid) 1 mg PO DAILY [facility] Hydralazine HCl (Apresoline) 10 mg IVPUSH Q6H PRN PRN Reason: Hypertension Meropenem 1 gm/ Sodium (Chloride) 100 mls @ 200 mls/hr IV Q8H [facility] Last Admin: 01/19/20 13:44 Dose: 200 mls/hr Sodium Chloride (Normal Saline) 1,000 mls @ 75 mls/hr IV ASDIRECTED [facility] Methylprednisolone Sodium Succinate (Solu-Medrol) 80 mg IVPUSH Q8H [facility] Morphine Sulfate (Morphine) 2 mg IVPUSH Q4H PRN PRN Reason: Pain (severe 7-10) Non-Formulary Medication (Cetirizine) 10 mg PO DAILY [facility] Non-Formulary Medication (Diclofenac/Hyaluronate/Niacin [Diclofen 3%-Hyaluron 2% -Niac4%]) 2 gm TOP BID PRN PRN Reason: Pain Non-Formulary Medication (Duloxetine) 60 mg PO DAILY [facility] Non-Formulary Medication (Ferrous Sulfate [Ferrous Sulfate]) 325 mg PO DAILY [facility] Non-Formulary Medication (Lutein [Lutein]) 40 mg PO DAILY [facility] Non-Formulary Medication (Lycopene [Lycopene]) 10 mg PO DAILY [facility] Non-Formulary Medication (Ropinirole) 0.5 mg PO BEDTIME [facility] Nystatin (Nystop) 0 gm TOP BID PRN PRN Reason: Itching Ondansetron HCl (Zofran) 4 mg IVPUSH Q4H PRN PRN Reason: Nausea and Vomiting Oxycodone HCl (Oxycodone) 7.5 mg PO Q6H PRN PRN Reason: Pain Senna/Docusate Sodium (Senna Plus) 2 tab PO BID [facility] Trazodone HCl (Trazodone) 50 mg PO BEDTIME [facility] Assessment/Plan Comment:: Severe joint pain secondary to RA flare up RA Fibromyalgia/chronic pain Chronic neuropathy Chronic hx of RA- currently receiving methotrexate 17.5 mg po weekly, folic acid supplementation. On multiple chronic pain and anti-inflammatory meds including oxycodone, cymbalta, fludrocortisone, and topical creams Given Solumedrol 125 mg IV x1 in the ED Elevated ESR and CRP on admission, 84 and 8.2 respectively PLAN - Continue Solumedrol 80 mg IV TID. Will decrease upon improvement and recommend short term oral prednisone upon discharge - Repeat ESR and CRP in the morning - Continue home pain meds - Morphine IV for breakthrough pain PRN Urinary tract infection Leukocytosis Urinary retention/incontinence Hx of multiple and recurrent UTIs. Prior urine culture from 12/07/19 shows E.coli sensitive to meropenem On admission patient is found tachicardic, febrile and WBC 10.66 Reports self cath 5 x daily PLAN - Will start meropenem 1 g IV q8h based on last urine sensitivities in medical records. - Will request for blood and urine cultures - CXR to r/o possible aspiration pnuemonia, although this is less likely caused of leukocytosis - Will request for lactic acid and procalcitonin - PVR now, if residual > 250 ml, will insert see catheter while in house Debilitating/Deconditioned Wheelchair bound Patient lives by herself at home independently even though present condition. Has refused home nursing placement in the past PLAN - Will consult case management and OT/PT while in house - May recommend senior living placement upon initial OT/PT evaluation Non-pressure ulcers over the anterolateral and anteromedial ankle bilaterally Decubitus ulcers, chronic Secondary to RA and diminished self care PLAN - Continue daily wound care as per protocol - May consider consulting bioinformatics support specialist if further care needed Hypertension Stable, BP 123/78 on admission PLAN -Hold home meds for now -Hydralazine IV PRN Restless leg syndrome PLAN - Continue home ropinirole PROPHYLAXIX DVT- Lovenox 40 mg subcut q24h GI- not indicated CODE STATUS: Full Code DISPOSITION Based on patient's hx and clinical presentation, we anticipate hospital stay to be longer than 2 midnights. - Mortality Measure Prognosis:: Good
[2020-01-19] MEDS: Sodium Chloride 0.9% 1,000 ML IV SCH (15:32)
[2020-01-19] MEDS: Enoxaparin 40 MG/0.4 ML Syringe SUBCUT SCH (15:32)
[2020-01-19] MEDS: Acetaminophen/HYDROcodone 325-5 MG Tab PO PRN (19:03)
[2020-01-19] MEDS: methylPREDNISolone Sodium Succinate 125 MG/2 ML SDV IVPUSH SCH ×2 (19:04→21:17)
[2020-01-19] MEDS ORDERED: ROPINIROLE 0.5 MG PO SCH (21:00)
[2020-01-19] MEDS: Meropenem Premix 500 MG in Premix Bag 1 BAG IV SCH (21:16)
[2020-01-19] MEDS: traZODone 50 MG Tab PO SCH (21:17)
[2020-01-19] MEDS: rOPINIRole 0.25 MG Tab PO SCH (21:24)
[2020-01-19] MEDS: oxyCODONE 5 MG Tab PO PRN (21:57)
[2020-01-20] MEDS: methylPREDNISolone Sodium Succinate 125 MG/2 ML SDV IVPUSH SCH ×6 (00:55→20:58)
[2020-01-20] MEDS: Meropenem Premix 500 MG in Premix Bag 1 BAG IV SCH ×4 (03:10→20:52)
[2020-01-20] MEDS: Nystatin Topical Powder 15 GM Bottle TOP PRN (04:06)
[2020-01-20] MEDS: Sodium Chloride 0.9% 1,000 ML IV SCH ×2 (04:19→06:18)
[2020-01-20] MEDS: Acetaminophen/HYDROcodone 325-5 MG Tab PO PRN ×2 (05:28→12:11)
--- NOTE | 2020-01-20 08:52 | PCM.PN ---
- General Info Date of Service: 01/20/20 Admission Dx/Problem (Free Text): Patient was seen by me at the bedside, and case was discussed with Dr. Rodriguez. Patient's condition has improved since time of admission but remains with moderate joint pain. She still requires pain meds on top of the IV steroids. 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 She also reports unable to void on her own. ESR and CRP remain elevated, 105 (84 on admission) and 11.9 (8.2 on admission) respectively. Nursing staff reports urine retention of over 600 ml by bladder scan. Otherwise, the rest of ROS is negative. VS are relatively stable. WBC has trended up to 13.9 probably secondary to steroids. Urine culture remains pending. No acute issues reported overnight. Functional Status: Reports: Tolerating Diet Pain Score: 6 - Review of Systems General: Reports: No Symptoms HEENT: Reports: No Symptoms Pulmonary: Reports: No Symptoms Cardiovascular: Reports: No Symptoms Gastrointestinal: Reports: No Symptoms Genitourinary: Reports: Retention Musculoskeletal: Reports: Shoulder Pain, Arm Pain, Leg Pain, Joint Pain Skin: Reports: No Symptoms Neurological: Reports: No Symptoms Psychiatric: Reports: No Symptoms - Patient Data Vitals - Most Recent: Last Vital Signs Temp 98.2 F 01/20/20 03:16 Pulse 58 L 01/20/20 03:16 Resp 16 01/20/20 03:16 BP 113/98 H 01/20/20 03:16 Pulse Ox 93 L 01/20/20 03:16 Weight - Most Recent: 197 lb 9.6 oz I&O - Last 24 Hours: Intake & Output 01/19/20 01/20/20 01/20/20 22:59 06:59 14:59 Intake Total 325 1527 Output Total 0 1300 0 Balance 325 227 0 - Exam General: Alert, Oriented, Cooperative HEENT: Pupils Equal, Pupils Reactive, EOMI Neck: Supple, Trachea Midline, No JVD Lungs: Clear to Auscultation, Normal Respiratory Effort Cardiovascular: Regular Rate, Regular Rhythm GI/Abdominal Exam: Normal Bowel Sounds, Soft, Non-Tender, No Distention (Female) Exam: Deferred Extremities: No Pedal Edema, Arm Pain, Limited Range of Motion, Other (Tender shoulder bilaterally ) Skin: Warm, Dry, Intact Wound/Incisions: Dressing Dry and Intact (over anterolateral and anteromedial ankle bilaterally ), No Drainage, Decubitis Neurological: No New Focal Deficit Psy/Mental Status: Alert, Normal Affect, Normal Mood Sepsis Event Note - Evaluation Sepsis Screening Result: No Definite Risk - Focused Exam Vital Signs: Vital Signs Temp Pulse Resp BP Pulse Ox 01/20/20 03:16 98.2 F 58 L 16 113/98 H 93 L 01/20/20 00:53 97.7 F 72 16 106/76 95 Date Exam was Performed: 01/20/20 Time Exam was Performed: 08:46 - Problem List Review Problem List Initiated/Reviewed/Updated: Yes - My Orders Last 24 Hours: My Active Orders 01/20/20 09:00 DULoxetine [Cymbalta] 60 mg PO DAILY Ferrous Sulfate 324 mg PO DAILY Fludrocortisone [Florinef] 0.1 mg PO DAILY Folic Acid 1 mg PO DAILY Loratadine [Claritin] 10 mg PO DAILY 01/20/20 10:00 Insert See Catheter [Insert Urinary Catheter] [OM.PC] Q24H 01/20/20 Lunch Regular Diet [DIET] 01/21/20 05:00 CBC WITH AUTO DIFF [HEME] Routine COMPREHENSIVE METABOLIC PN,CMP [CHEM] Routine CRP [C-REACTIVE PROTEIN] [CHEM] Routine ESR [SEDIMENTATION RATE AUTO] [HEME] Routine 01/21/20 13:39 PROCALCITONIN [REF] Q2D - Assessment Assessment:: See plan - Plan Plan:: Severe joint pain secondary to RA flare up RA Fibromyalgia/chronic pain Chronic neuropathy Chronic hx of RA- currently receiving methotrexate 17.5 mg po weekly, folic acid supplementation. On multiple chronic pain and anti-inflammatory meds including oxycodone, cymbalta, fludrocortisone, and topical creams Given Solumedrol 125 mg IV x1 in the ED ESR and CRP remain elevated 105 (84 on admission) and 11.9 (8.2 on admission) respectively. PLAN - Continue Solumedrol 125 mg IV Q4H. Will decrease upon improvement and recommend short term oral prednisone upon discharge - Repeat ESR and CRP in the morning - Will call her heel stainer Dr. Nas Hurtado tomorrow for further recommendations - Continue home pain meds - Morphine IV for breakthrough pain PRN Urinary tract infection Urinary retention/incontinence Hx of multiple and recurrent UTIs. Prior urine culture from 12/07/19 shows E.coli sensitive to meropenem On admission patient is found tachicardic, febrile and WBC 10.66 Reports self cath 5 x daily CXR negative for pneumonia 650 ml urine after straight cath and bladder scan PLAN - Will continue meropenem 1 g IV q8h based on last urine sensitivities in medical records. Will modify upon final urine sensitivities on this admission - Blood and urine cultures pending - Will insert indwelling see catheter today, and maintain it while in house - Will request for lactic acid and procalcitonin Leukocytosis Trended up to 13.9 probably secondary to steroids vs UTI PLAN - Continue abx IV - Monitor VS - Continue to monitor WBC Debilitating/Deconditioned Wheelchair bound Patient lives by herself at home independently even though present condition. Has refused home nursing placement in the past PLAN - Will consult case management and OT/PT while in house - May recommend halfway placement upon initial OT/PT evaluation Non-pressure ulcers over the anterolateral and anteromedial ankle bilaterally Decubitus ulcers, chronic Secondary to RA and diminished self care PLAN - Continue daily wound care as per protocol - May consider consulting banking specialist if further care needed Hypertension Stable, BP 123/78 on admission. Today 140/70 PLAN -Hold home meds for now -Hydralazine IV PRN Restless leg syndrome PLAN - Continue home ropinirole PROPHYLAXIX DVT- Lovenox 40 mg subcut q24h GI- not indicated CODE STATUS: Full Code DISPOSITION Patient is improving since admission but remains with moderate pain. Will consult her rhemautologist tomorrow for further recommendations. Will consut OT/ PT and case management
[2020-01-20] MEDS ORDERED: Non-Formulary Medication 1 Each (Cetirizine 10 MG) PO SCH (09:00)
[2020-01-20] MEDS ORDERED: DULoxetine 30 MG Cap PO SCH (09:00)
[2020-01-20] MEDS ORDERED: LUTEIN 40 MG PO SCH (09:00)
[2020-01-20] MEDS ORDERED: DULOXETINE 60 MG PO SCH (09:00)
[2020-01-20] MEDS ORDERED: LYCOPENE 10 MG PO SCH (09:00)
[2020-01-20] MEDS: oxyCODONE 5 MG Tab PO PRN ×2 (09:15→19:11)
[2020-01-20] MEDS: Folic Acid 1 MG Tab PO SCH (09:18)
[2020-01-20] MEDS: Loratadine 10 MG Tab PO SCH (09:18)
[2020-01-20] MEDS: Fludrocortisone 0.1 MG Tab PO SCH (09:18)
[2020-01-20] MEDS: Enoxaparin 40 MG/0.4 ML Syringe SUBCUT SCH (09:21)
[2020-01-20] MEDS: Ferrous Sulfate 324 MG Tab.EC PO SCH (10:01)
--- NOTE | 2020-01-20 11:11 | CR ---
Chest: Portable view of the chest was obtained. Comparison: Prior chest x-ray of 05/13/18. Heart size and mediastinum are within normal limits for portable technique. Azygos lobe is incidentally noted. Lungs are clear with no acute parenchymal change. Left-sided infusion port is seen. Degenerative change is noted within both shoulders. Impression: 1. Findings as noted above. 2. Nothing acute is appreciated on portable chest x-ray. Diagnostic code #2 This report was dictated in MDT
[2020-01-20] MEDS: DULoxetine 30 MG Cap PO SCH (16:07)
[2020-01-20] MEDS: Ondansetron 4 MG/2 ML SDV IVPUSH PRN (19:09)
[2020-01-20] MEDS: traZODone 50 MG Tab PO SCH (20:57)
[2020-01-20] MEDS: rOPINIRole 0.25 MG Tab PO SCH (21:03)
[2020-01-21] MEDS: Acetaminophen/HYDROcodone 325-5 MG Tab PO PRN ×2 (00:13→09:03)
[2020-01-21] MEDS: Meropenem Premix 500 MG in Premix Bag 1 BAG IV SCH ×2 (02:30→09:07)
[2020-01-21] MEDS: methylPREDNISolone Sodium Succinate 125 MG/2 ML SDV IVPUSH SCH ×6 (02:32→20:26)
[2020-01-21] MEDS: oxyCODONE 5 MG Tab PO PRN ×2 (02:46→14:12)
--- NOTE | 2020-01-21 08:26 | PCM.PN ---
- General Info Date of Service: 01/21/20 Admission Dx/Problem (Free Text): RA Flare, UTI Subjective Update: Doing better today Pain has improved Shoulder pain has improved to resolved Last BM on 01/20/20 No patient concerns Clarified home pain medication dosing with patient Functional Status: Reports: Pain Controlled, Tolerating Diet, Ambulating, Urinating. Denies: New Symptoms - Review of Systems General: Reports: Weakness, Fatigue, Malaise. Denies: Fever, Chills HEENT: Reports: No Symptoms. Denies: Headaches, Sore Throat Pulmonary: Reports: No Symptoms. Denies: Shortness of Breath, Cough, Sputum, Wheezing Cardiovascular: Reports: No Symptoms. Denies: Chest Pain, Palpitations Gastrointestinal: Reports: No Symptoms. Denies: Abdominal Pain, Constipation, Diarrhea, Nausea, Vomiting Genitourinary: Reports: No Symptoms. Denies: Pain Musculoskeletal: Reports: Shoulder Pain (Improved to resolved ), Joint Pain, Other (Generalized myalgias - improved ) Skin: Reports: No Symptoms. Denies: Cyanosis Neurological: Reports: Difficulty Walking, Weakness, Gait Disturbance. Denies: Confusion Psychiatric: Reports: No Symptoms - Patient Data Vitals - Most Recent: Last Vital Signs Temp 97.9 F 01/21/20 04:26 Pulse 53 L 01/21/20 04:26 Resp 18 01/21/20 04:26 BP 99/51 L 01/21/20 04:26 Pulse Ox 96 01/21/20 04:26 Weight - Most Recent: 442 lb 0.429 oz I&O - Last 24 Hours: Intake & Output 01/20/20 01/21/20 01/21/20 22:59 06:59 14:59 Intake Total 1100 200 Output Total 450 550 Balance 650 -350 Lab Results Last 24 Hours: Laboratory Results - last 24 hr 01/19/20 01/20/20 01/21/20 Range/Units 09:39 05:30 05:26 WBC 16.93 H (3.98-10.04) K/mm3 RBC 3.40 L (3.98-5.22) M/mm3 Hgb 10.5 L (11.2-15.7) gm/dl Hct 34.0 L (34.1-44.9) % MCV 100.0 H (79.4-94.8) fl MCH 30.9 (25.6-32.2) pg MCHC 30.9 L (32.2-35.5) g/dl RDW Std Deviation 50.4 H (36.4-46.3) fL Plt Count 349 (182-369) K/mm3 MPV 9.4 (9.4-12.3) fl Neut % (Auto) 91.6 H (34.0-71.1) % Lymph % (Auto) 7.1 L (19.3-51.7) % [place] % (Auto) 0.9 L (4.7-12.5) % Eos % (Auto) 0 L (0.7-5.8) Baso % (Auto) 0.0 L (0.1-1.2) % Neut # (Auto) 15.51 H (1.56-6.13) K/mm3 Lymph # (Auto) 1.21 (1.18-3.74) K/mm3 [place] # (Auto) 0.15 L (0.24-0.36) K/mm3 Eos # (Auto) 0.00 L (0.04-0.36) K/mm3 Baso # (Auto) 0.00 L (0.01-0.08) K/mm3 Manual Slide Review Abnormal smear ESR 105 H (0-20) mm/hr Sodium (136-145) mEq/L Potassium (3.5-5.1) mEq/L Chloride (98-107) mEq/L Carbon Dioxide (21-32) mEq/L Anion Gap (5-15) BUN (7-18) mg/dL Creatinine (0.55-1.02) mg/dL Est Cr Clr Drug Dosing mL/min Estimated GFR (MDRD) (>60) mL/min BUN/Creatinine Ratio (14-18) Glucose (80-115) mg/dL Calcium (8.5-10.1) mg/dL Total Bilirubin (0.2-1.0) mg/dL AST (15-37) U/L ALT (14-59) U/L Alkaline Phosphatase (46-116) U/L C-Reactive Protein (<1.0) mg/dL Total Protein (6.4-8.2) g/dl Albumin (3.4-5.0) g/dl Globulin gm/dL Albumin/Globulin Ratio (1-2) Procalcitonin 0.23 H (<0.10) ng/mL 01/21/20 Range/Units 05:26 WBC (3.98-10.04) K/mm3 RBC (3.98-5.22) M/mm3 Hgb (11.2-15.7) gm/dl Hct (34.1-44.9) % MCV (79.4-94.8) fl MCH (25.6-32.2) pg MCHC (32.2-35.5) g/dl RDW Std Deviation (36.4-46.3) fL Plt Count (182-369) K/mm3 MPV (9.4-12.3) fl Neut % (Auto) (34.0-71.1) % Lymph % (Auto) (19.3-51.7) % [place] % (Auto) (4.7-12.5) % Eos % (Auto) (0.7-5.8) Baso % (Auto) (0.1-1.2) % Neut # (Auto) (1.56-6.13) K/mm3 Lymph # (Auto) (1.18-3.74) K/mm3 [place] # (Auto) (0.24-0.36) K/mm3 Eos # (Auto) (0.04-0.36) K/mm3 Baso # (Auto) (0.01-0.08) K/mm3 Manual Slide Review ESR (0-20) mm/hr Sodium 139 (136-145) mEq/L Potassium 4.5 (3.5-5.1) mEq/L Chloride 104 (98-107) mEq/L Carbon Dioxide 25 (21-32) mEq/L Anion Gap 14.5 (5-15) BUN 36 H (7-18) mg/dL Creatinine 1.1 H (0.55-1.02) mg/dL Est Cr Clr Drug Dosing 46.49 mL/min Estimated GFR (MDRD) 50 (>60) mL/min BUN/Creatinine Ratio 32.7 H (14-18) Glucose 145 H (80-115) mg/dL Calcium 7.4 L (8.5-10.1) mg/dL Total Bilirubin 0.3 (0.2-1.0) mg/dL AST 30 (15-37) U/L ALT 19 (14-59) U/L Alkaline Phosphatase 58 (46-116) U/L C-Reactive Protein 5.2 H* (<1.0) mg/dL Total Protein 7.2 (6.4-8.2) g/dl Albumin 2.2 L (3.4-5.0) g/dl Globulin 5.0 gm/dL Albumin/Globulin Ratio 0.4 L (1-2) Procalcitonin (<0.10) ng/mL Corey Results Last 24 Hours: Microbiology 01/19/20 09:39 Aerobic Blood Culture - Preliminary Blood - Venous - Lab Draw NO GROWTH AFTER 1 DAY Anaerobic Blood Culture - Preliminary NO GROWTH AFTER 1 DAY 01/19/20 09:28 Aerobic Blood Culture - Preliminary Blood - Venous NO GROWTH AFTER 1 DAY Anaerobic Blood Culture - Preliminary NO GROWTH AFTER 1 DAY 01/19/20 12:00 Urine Culture - Preliminary Urine, Catheterized Gram Negative Rods Med Orders - Current: Current Medications Acetaminophen (Tylenol) 650 mg PO Q6H PRN PRN Reason: Pain (Mild 1-3) or Fever Acetaminophen (Tylenol) 650 mg RECTAL Q6H PRN PRN Reason: Pain (Mild 1-3) or Fever Hydrocodone Bitart/Acetaminophen ([place] 325-5 Mg) 1 tab PO Q6H PRN PRN Reason: Pain (moderate 4-6) Last Admin: 01/21/20 00:13 Dose: 1 tab Diphenhydramine HCl (Benadryl) 25 mg IVPUSH Q4H PRN PRN Reason: Restlessness or Allergies Duloxetine HCl (Cymbalta) 60 mg PO DAILY@1700 [facility] Last Admin: 01/20/20 16:07 Dose: 60 mg Enoxaparin Sodium (Lovenox) 40 mg SUBCUT DAILY [facility] Last Admin: 01/20/20 09:21 Dose: 40 mg Ferrous Sulfate (Ferrous Sulfate) 324 mg PO DAILY [facility] Last Admin: 01/20/20 10:01 Dose: 324 mg Fludrocortisone Acetate (Florinef) 0.1 mg PO DAILY [facility] Last Admin: 01/20/20 09:18 Dose: 0.1 mg Folic Acid (Folic Acid) 1 mg PO DAILY [facility] Last Admin: 01/20/20 09:18 Dose: 1 mg Hydralazine HCl (Apresoline) 10 mg IVPUSH Q6H PRN PRN Reason: Hypertension Meropenem/Sodium Chloride 500 (mg/ Premix) 50 mls @ 100 mls/hr IV Q6H [facility] Last Admin: 01/21/20 02:30 Dose: 100 mls/hr Loratadine (Claritin) 10 mg PO DAILY [facility] Last Admin: 01/20/20 09:18 Dose: 10 mg Methylprednisolone Sodium Succinate (Solu-Medrol) 125 mg IVPUSH Q4H [facility] Stop: 01/22/20 09:01 Last Admin: 01/21/20 05:45 Dose: 125 mg Morphine Sulfate (Morphine) 2 mg IVPUSH Q4H PRN PRN Reason: Pain (severe 7-10) Nystatin (Nystop) 0 gm TOP BID PRN PRN Reason: Itching Last Admin: 01/20/20 04:06 Dose: 1 applic Ondansetron HCl (Zofran) 4 mg IVPUSH Q4H PRN PRN Reason: Nausea and Vomiting Last Admin: 01/20/20 19:09 Dose: 4 mg Oxycodone HCl (Oxycodone) 7.5 mg PO Q6H PRN PRN Reason: Pain Last Admin: 01/21/20 02:46 Dose: 7.5 mg Ropinirole HCl (Requip) 0.5 mg PO BEDTIME [facility] Last Admin: 01/20/20 21:03 Dose: 0.5 mg Senna/Docusate Sodium (Senna Plus) 2 tab PO BID [facility] Last Admin: 01/20/20 20:57 Dose: 2 tab Trazodone HCl (Trazodone) 50 mg PO BEDTIME [facility] Last Admin: 01/20/20 20:57 Dose: 50 mg Discontinued Medications Acetaminophen (Tylenol) 975 mg PO NOW ONE Stop: 01/19/20 12:25 Last Admin: 01/19/20 12:45 Dose: 975 mg Duloxetine HCl (Cymbalta) 60 mg PO DAILY [facility] Last Admin: 01/20/20 09:56 Dose: Not Given Meropenem 1 gm/ Sodium (Chloride) 100 mls @ 200 mls/hr IV Q8H [facility] Last Admin: 01/19/20 13:44 Dose: 200 mls/hr Sodium Chloride (Normal Saline) 1,000 mls @ 75 mls/hr IV ASDIRECTED [facility] Last Admin: 01/20/20 06:18 Dose: 75 mls/hr Methylprednisolone Sodium Succinate (Solu-Medrol) 125 mg IVPUSH ONETIME ONE Stop: 01/19/20 09:07 Last Admin: 01/19/20 09:29 Dose: 125 mg Methylprednisolone Sodium Succinate (Solu-Medrol) 80 mg IVPUSH Q8H [facility] Last Admin: 01/19/20 15:23 Dose: Not Given Non-Formulary Medication (Cetirizine) 10 mg PO DAILY [facility] Non-Formulary Medication (Diclofenac/Hyaluronate/Niacin [Diclofen 3%-Hyaluron 2% -Niac4%]) 2 gm TOP BID PRN PRN Reason: Pain Non-Formulary Medication (Duloxetine) 60 mg PO DAILY [facility] Non-Formulary Medication (Lutein [Lutein]) 40 mg PO DAILY [facility] Non-Formulary Medication (Lycopene [Lycopene]) 10 mg PO DAILY [facility] Non-Formulary Medication (Ropinirole) 0.5 mg PO BEDTIME [facility] - Exam Quality Assessment: DVT Prophylaxis General: Alert, Oriented, Cooperative, No Acute Distress HEENT: Pupils Equal, Pupils Reactive, Mucous Membr. Moist/[place] Neck: Supple, Trachea Midline Lungs: Clear to Auscultation, Normal Respiratory Effort Cardiovascular: Regular Rate, Regular Rhythm GI/Abdominal Exam: Normal Bowel Sounds, Soft, Non-Tender, No Distention (Female) Exam: Deferred Extremities: No Pedal Edema, Other (Bandages in place on bilateral ankles. Patent showed pictures from end of last month of progress. ) Skin: Warm, Dry, Intact Wound/Incisions: Dressing Dry and Intact. No: Erythema Neurological: No New Focal Deficit Psy/Mental Status: Alert Sepsis Event Note - Evaluation Sepsis Screening Result: No Definite Risk - Focused Exam Vital Signs: Vital Signs Temp Pulse Resp BP Pulse Ox 01/21/20 04:26 97.9 F 53 L 18 99/51 L 96 01/21/20 01:26 97.9 F 58 L 16 112/63 98 01/20/20 20:50 98.2 F 67 20 109/69 95 Date Exam was Performed: 01/21/20 Time Exam was Performed: 12:07 - Problem List & Annotations (1) Arthralgia SNOMED Code(s): 40760105 Code(s): M25.50 - PAIN IN UNSPECIFIED JOINT Status: Acute Priority: High Current Visit: Yes Qualifiers: Joint pain location: unspecified Qualified Code(s): M25.50 - Pain in unspecified joint (2) Rheumatoid arthritis flare SNOMED Code(s): 502998246 Code(s): M06.9 - RHEUMATOID ARTHRITIS, UNSPECIFIED Status: Acute Priority : High Current Visit: Yes (3) UTI (urinary tract infection) SNOMED Code(s): 11360546 Code(s): N39.0 - URINARY TRACT INFECTION, SITE NOT SPECIFIED Status: Acute Priority: High Current Visit: Yes Qualifiers: Urinary tract infection type: site unspecified Hematuria presence: without hematuria Qualified Code(s): N39.0 - Urinary tract infection, site not specified (4) Ulcers of both lower extremities SNOMED Code(s): 12557481 Code(s): L97.919 - NON-PRS CHRONIC ULC UNSP PRT OF R LOW LEG W UNSP SEVERITY ; L97.929 - NON-PRS CHRONIC ULC UNSP PRT OF L LOW LEG W UNSP SEVERITY Status: Chronic Priority: High Current Visit: Yes Qualifiers: Non-pressure ulcer stage: unspecified non-pressure ulcer stage Qualified Code(s): L97.919 - Non-pressure chronic ulcer of unspecified part of right lower leg with unspecified severity; L97.929 - Non-pressure chronic ulcer of unspecified part of left lower leg with unspecified severity (5) Hypocalcemia SNOMED Code(s): 8021005 Code(s): E83.51 - HYPOCALCEMIA Status: Chronic Priority: Medium Current Visit: No (6) PVD (peripheral vascular disease) SNOMED Code(s): 321727397 Code(s): I73.9 - PERIPHERAL VASCULAR DISEASE, UNSPECIFIED Status: Chronic Priority: Medium Current Visit: No (7) Recurrent UTI SNOMED Code(s): 149377498 Code(s): N39.0 - URINARY TRACT INFECTION, SITE NOT SPECIFIED Status: Chronic Priority: Medium Current Visit: Yes (8) GERD (gastroesophageal reflux disease) SNOMED Code(s): 241808215 Code(s): K21.9 - GASTRO-ESOPHAGEAL REFLUX DISEASE WITHOUT ESOPHAGITIS Status: Chronic Priority: Low Current Visit: No Qualifiers: Esophagitis presence: esophagitis presence not specified Qualified Code(s) : K21.9 - Gastro-esophageal reflux disease without esophagitis (9) Urinary incontinence SNOMED Code(s): 146159949 Code(s): R32 - UNSPECIFIED URINARY INCONTINENCE Status: Chronic Priority : Medium Current Visit: Yes Qualifiers: Urinary Incontinence type: unspecified incontinence Qualified Code(s): R32 - Unspecified urinary incontinence (10) Urinary retention SNOMED Code(s): 891827109 Code(s): R33.9 - RETENTION OF URINE, UNSPECIFIED Status: Acute Priority: High Current Visit: Yes (11) Fibromyalgia SNOMED Code(s): 707043432 Code(s): M79.7 - FIBROMYALGIA Status: Chronic Priority: Medium Current Visit: Yes (12) Peripheral neuropathy SNOMED Code(s): 966004183 Code(s): G62.9 - POLYNEUROPATHY, UNSPECIFIED Status: Chronic Priority: Medium Current Visit: Yes Qualifiers: Peripheral neuropathy type: polyneuropathy, unspecified Qualified Code(s): G62.9 - Polyneuropathy, unspecified (13) RLS (restless legs syndrome) SNOMED Code(s): 24989420 Code(s): G25.81 - RESTLESS LEGS SYNDROME Status: Chronic Current Visit: Yes (14) Type II diabetes mellitus SNOMED Code(s): 63499559 Code(s): E11.9 - TYPE 2 DIABETES MELLITUS WITHOUT COMPLICATIONS Status: Chronic Priority: Medium Current Visit: Yes Qualifiers: Diabetes mellitus long-term insulin use: unspecified oysterman insulin use status Diabetes mellitus complication status: with other specified complication Qualified Code(s): E11.69 - Type 2 diabetes mellitus with other specified complication (15) Morbid obesity SNOMED Code(s): 268015555 Code(s): E66.01 - MORBID (SEVERE) OBESITY DUE TO EXCESS CALORIES Status: Chronic Priority: High Current Visit: Yes (16) Physical deconditioning SNOMED Code(s): 01485181929915 Code(s): R53.81 - OTHER MALAISE Status: Chronic Priority: High Current Visit: Yes (17) Leukocytosis SNOMED Code(s): 421821065, 691887770 Code(s): D72.829 - ELEVATED WHITE BLOOD CELL COUNT, UNSPECIFIED Status: Acute Priority: High Current Visit: Yes Qualifiers: Leukocytosis type: unspecified Qualified Code(s): D72.829 - Elevated white blood cell count, unspecified (18) Rheumatoid arthritis SNOMED Code(s): 49772415 Code(s): M06.9 - RHEUMATOID ARTHRITIS, UNSPECIFIED Status: Acute Priority : High Current Visit: Yes Qualifiers: Rheumatoid arthritis location: multiple sites Rheumatoid factor presence: unspecified presence Qualified Code(s): M06.9 - Rheumatoid arthritis, unspecified (19) Wheelchair confinement status SNOMED Code(s): 805806948, 445995655 Code(s): Z99.3 - DEPENDENCE ON WHEELCHAIR Status: Chronic Priority: High Current Visit: Yes (20) Decubital ulcer SNOMED Code(s): 812460019 Code(s): L89.90 - PRESSURE ULCER OF UNSPECIFIED SITE, UNSPECIFIED STAGE Status: Chronic Priority: Medium Current Visit: Yes Qualifiers: Pressure injury location: buttock Pressure injury stage: unspecified pressure injury stage Laterality: unspecified laterality Qualified Code(s): L89.309 - Pressure ulcer of unspecified buttock, unspecified stage (21) History of MRSA infection SNOMED Code(s): 458106710, 647392852 Code(s): Z86.14 - PERSONAL HISTORY OF METHICILLIN RESIS STAPH INFECTION Status: Acute Priority: High Current Visit: Yes (22) Anemia SNOMED Code(s): 647947738 Code(s): D64.9 - ANEMIA, UNSPECIFIED Status: Acute Priority: High Current Visit: Yes Qualifiers: Anemia type: other cause Other causes of anemia: other cause, not classified Qualified Code(s): D64.89 - Other specified anemias - Problem List Review Problem List Initiated/Reviewed/Updated: Yes - Assessment Assessment:: See plan - Plan Plan:: Severe joint pain secondary to RA flare up RA Fibromyalgia/chronic pain Chronic neuropathy Morbid obesity - BMI 73.6 Chronic hx of RA- currently receiving methotrexate 17.5 mg po weekly, folic acid supplementation. On multiple chronic pain and anti-inflammatory meds including oxycodone, cymbalta, fludrocortisone, and topical creams Given Solumedrol 125 mg IV x1 in the ED ESR remains elevated 113 (84 on admission and increasing) CRP 5.2 (8.2 on admission and decreasing) PLAN - Continue Solumedrol 125 mg IV Q4H. Will decrease upon improvement and recommend short term oral prednisone upon discharge - Message left her assistant housekeeping manager Dr. Nas Hurtado - awaiting call back - Will adjust pain medications as patient reports taking oxycodone essentially scheduled and significant doses of Tylenol for breakthrough pain - Consult nurse practitioner home assessments Urinary tract infection Recurrent UTIs Urinary retention/incontinence Hx of multiple and recurrent UTIs. Prior urine culture from 12/07/19 shows E.coli sensitive to meropenem On admission patient is found tachicardic, febrile and WBC 10.66 Reports self cath 5 x daily CXR negative for pneumonia 650 ml urine after straight cath and bladder scan Blood cultures negative Urine cultures showing e. coli with multiple sensitivities Procalcitonin 0.23, Lactic acid 0.9 PLAN - Switch from meropenem to Rocephin - Continue see catheter Leukocytosis Anemia WBC trended up to 16.93 probably secondary to steroids vs UTI Hgb trending down 11.5-->11.1-->10.5 Acute on chronic anemia PLAN - Continue abx IV as above - Monitor VS - Continue to monitor WBC - Anemia work-up Debilitating/Deconditioned Wheelchair bound status Wheelchair bound Patient lives by herself at home independently even though present condition. Has refused home nursing placement in the past PLAN - Will consult case management and OT/PT while in house - May recommend long-term placement upon initial OT/PT evaluation - Consult CM/SW Non-pressure ulcers over the anterolateral and anteromedial ankle bilaterally Decubitus ulcers, chronic PVD History of MRSA in leg wounds Secondary to RA and diminished self care, PVD Chronic bilateral leg wounds Follows Dr. Marmolejo at [facility] for wound care. PLAN - Continue daily wound care as per protocol - Consult PT wound care - Repeat procalcitonin today Hypertension Stable, BP 123/78 on admission. Today 99/51 PLAN -Hold home meds for now -Hydralazine IV PRN Restless leg syndrome PLAN - Continue home ropinirole PROPHYLAXIX DVT- Lovenox 40 mg subcut q24h GI- not indicated CODE STATUS: Full Code DISPOSITION Patient is improving since admission but remains with moderate pain. Awaiting multiple labs and return call from Dr. Hurtado. Likely discharge in 24-48 hours
[2020-01-21] MEDS: Ferrous Sulfate 324 MG Tab.EC PO SCH (09:05)
[2020-01-21] MEDS: Loratadine 10 MG Tab PO SCH (09:05)
[2020-01-21] MEDS: Folic Acid 1 MG Tab PO SCH (09:05)
[2020-01-21] MEDS: Fludrocortisone 0.1 MG Tab PO SCH (09:05)
[2020-01-21] MEDS: Enoxaparin 40 MG/0.4 ML Syringe SUBCUT SCH (09:06)
[2020-01-21] MEDS: Nystatin Topical Powder 15 GM Bottle TOP PRN (10:25)
[2020-01-21] MEDS: cefTRIAXone 2 GM in Sodium Chloride 0.9% 100 ML IV SCH (13:10)
[2020-01-21] MEDS: Acetaminophen 325 MG Tab PO PRN (13:56)
[2020-01-21] MEDS ORDERED: Morphine 2 MG/ML Syringe IVPUSH ONE (14:19)
[2020-01-21] MEDS: DULoxetine 30 MG Cap PO SCH (17:41)
[2020-01-21] MEDS: rOPINIRole 0.25 MG Tab PO SCH (20:26)
[2020-01-21] MEDS: traZODone 50 MG Tab PO SCH (20:26)
[2020-01-21] MEDS: Morphine 15 MG Tab.ER PO SCH (20:32)
[2020-01-22] MEDS: methylPREDNISolone Sodium Succinate 125 MG/2 ML SDV IVPUSH SCH ×3 (01:10→08:28)
[2020-01-22] MEDS: Acetaminophen 325 MG Tab PO PRN (05:48)
[2020-01-22] MEDS: Loratadine 10 MG Tab PO SCH (08:28)
[2020-01-22] MEDS: Folic Acid 1 MG Tab PO SCH (08:28)
[2020-01-22] MEDS: Fludrocortisone 0.1 MG Tab PO SCH (08:28)
[2020-01-22] MEDS: Enoxaparin 40 MG/0.4 ML Syringe SUBCUT SCH (08:29)
--- NOTE | 2020-01-22 08:33 | PCM.PN ---
- General Info Date of Service: 01/22/20 Admission Dx/Problem (Free Text): RA Flare, UTI Subjective Update: Last BM today. Functional Status: Reports: Pain Controlled, Tolerating Diet, Ambulating, Urinating (see in place ). Denies: New Symptoms - Review of Systems General: Reports: No Symptoms. Denies: Fever, Weakness, Fatigue, Malaise, Chills HEENT: Reports: No Symptoms. Denies: Headaches, Sore Throat Pulmonary: Reports: No Symptoms. Denies: Shortness of Breath, Cough, Sputum, Wheezing Cardiovascular: Reports: No Symptoms. Denies: Chest Pain, Palpitations Gastrointestinal: Reports: Diarrhea (Report ate peppers with breakfast and this is usual result. ). Denies: Abdominal Pain, Constipation, Nausea, Vomiting Genitourinary: Reports: No Symptoms. Denies: Pain Musculoskeletal: Reports: Joint Pain (chronic ), Other (General myalgias) Skin: Reports: No Symptoms. Denies: Cyanosis Neurological: Reports: No Symptoms, Difficulty Walking, Gait Disturbance. Denies: Confusion Psychiatric: Reports: No Symptoms - Patient Data Vitals - Most Recent: Last Vital Signs Temp 98.2 F 01/22/20 07:41 Pulse 64 01/22/20 07:41 Resp 15 01/22/20 07:41 BP 132/88 01/22/20 07:41 Pulse Ox 97 01/22/20 07:41 Weight - Most Recent: 201 lb 11.2 oz I&O - Last 24 Hours: Intake & Output 01/21/20 01/22/20 01/22/20 22:59 06:59 14:59 Intake Total 1440 300 Output Total 450 600 Balance 990 -300 Lab Results Last 24 Hours: Laboratory Results - last 24 hr 01/21/20 01/21/20 01/21/20 Range/Units 05:26 05:26 09:41 WBC (3.98-10.04) K/mm3 RBC (3.98-5.22) M/mm3 Hgb (11.2-15.7) gm/dl Hct (34.1-44.9) % MCV (79.4-94.8) fl MCH (25.6-32.2) pg MCHC (32.2-35.5) g/dl RDW Std Deviation (36.4-46.3) fL Plt Count (182-369) K/mm3 MPV (9.4-12.3) fl Neut % (Auto) (34.0-71.1) % Lymph % (Auto) (19.3-51.7) % Merrick % (Auto) (4.7-12.5) % Eos % (Auto) (0.7-5.8) Baso % (Auto) (0.1-1.2) % Neut # (Auto) (1.56-6.13) K/mm3 Lymph # (Auto) (1.18-3.74) K/mm3 Merrick # (Auto) (0.24-0.36) K/mm3 Eos # (Auto) (0.04-0.36) K/mm3 Baso # (Auto) (0.01-0.08) K/mm3 ESR 113 H (0-20) mm/hr Sodium (136-145) mEq/L Potassium (3.5-5.1) mEq/L Chloride (98-107) mEq/L BUN (7-18) mg/dL Creatinine (0.55-1.02) mg/dL Est Cr Clr Drug Dosing mL/min Estimated GFR (MDRD) (>60) mL/min BUN/Creatinine Ratio (14-18) Glucose (80-115) mg/dL Calcium (8.5-10.1) mg/dL Phosphorus (2.6-4.7) mg/dL Magnesium (1.8-2.4) mg/dl Iron (50-170) ug/dL TIBC (100-400) ug/dL % Saturation (20-55) % Transferrin (202-364) mg/dL Prealbumin 11.8 L (17.0-34.0) mg/dL Vitamin B12 (193-986) pg/ml Vitamin D 25-Hydroxy (30.0-100.0) ng/ml Folate (8.6-58.9) ng/mL Procalcitonin 0.07 (<0.10) ng/mL 01/21/20 01/21/20 01/22/20 Range/Units 09:41 09:41 07:54 WBC 12.72 H (3.98-10.04) K/mm3 RBC 3.45 L (3.98-5.22) M/mm3 Hgb 10.8 L (11.2-15.7) gm/dl Hct 34.5 (34.1-44.9) % MCV 100.0 H (79.4-94.8) fl MCH 31.3 (25.6-32.2) pg MCHC 31.3 L (32.2-35.5) g/dl RDW Std Deviation 49.2 H (36.4-46.3) fL Plt Count 390 H (182-369) K/mm3 MPV 9.0 L (9.4-12.3) fl Neut % (Auto) 88.8 H (34.0-71.1) % Lymph % (Auto) 10.1 L (19.3-51.7) % Merrick % (Auto) 0.9 L (4.7-12.5) % Eos % (Auto) 0 L (0.7-5.8) Baso % (Auto) 0.0 L (0.1-1.2) % Neut # (Auto) 11.30 H (1.56-6.13) K/mm3 Lymph # (Auto) 1.28 (1.18-3.74) K/mm3 Merrick # (Auto) 0.12 L (0.24-0.36) K/mm3 Eos # (Auto) 0.00 L (0.04-0.36) K/mm3 Baso # (Auto) 0.00 L (0.01-0.08) K/mm3 ESR (0-20) mm/hr Sodium (136-145) mEq/L Potassium (3.5-5.1) mEq/L Chloride (98-107) mEq/L BUN (7-18) mg/dL Creatinine (0.55-1.02) mg/dL Est Cr Clr Drug Dosing mL/min Estimated GFR (MDRD) (>60) mL/min BUN/Creatinine Ratio (14-18) Glucose (80-115) mg/dL Calcium (8.5-10.1) mg/dL Phosphorus (2.6-4.7) mg/dL Magnesium (1.8-2.4) mg/dl Iron 84 (50-170) ug/dL TIBC 206 (100-400) ug/dL % Saturation 41 (20-55) % Transferrin 165 L (202-364) mg/dL Prealbumin (17.0-34.0) mg/dL Vitamin B12 2664 H (193-986) pg/ml Vitamin D 25-Hydroxy 26.2 L (30.0-100.0) ng/ml Folate 34.1 (8.6-58.9) ng/mL Procalcitonin (<0.10) ng/mL 01/22/20 Range/Units 07:54 WBC (3.98-10.04) K/mm3 RBC (3.98-5.22) M/mm3 Hgb (11.2-15.7) gm/dl Hct (34.1-44.9) % MCV (79.4-94.8) fl MCH (25.6-32.2) pg MCHC (32.2-35.5) g/dl RDW Std Deviation (36.4-46.3) fL Plt Count (182-369) K/mm3 MPV (9.4-12.3) fl Neut % (Auto) (34.0-71.1) % Lymph % (Auto) (19.3-51.7) % Merrick % (Auto) (4.7-12.5) % Eos % (Auto) (0.7-5.8) Baso % (Auto) (0.1-1.2) % Neut # (Auto) (1.56-6.13) K/mm3 Lymph # (Auto) (1.18-3.74) K/mm3 Merrick # (Auto) (0.24-0.36) K/mm3 Eos # (Auto) (0.04-0.36) K/mm3 Baso # (Auto) (0.01-0.08) K/mm3 ESR (0-20) mm/hr Sodium 139 (136-145) mEq/L Potassium 4.0 (3.5-5.1) mEq/L Chloride 105 (98-107) mEq/L BUN 34 H (7-18) mg/dL Creatinine 1.1 H (0.55-1.02) mg/dL Est Cr Clr Drug Dosing 46.49 mL/min Estimated GFR (MDRD) 50 (>60) mL/min BUN/Creatinine Ratio 30.9 H (14-18) Glucose 140 H (80-115) mg/dL Calcium 7.0 L (8.5-10.1) mg/dL Phosphorus 3.9 (2.6-4.7) mg/dL Magnesium 2.2 (1.8-2.4) mg/dl Iron (50-170) ug/dL TIBC (100-400) ug/dL % Saturation (20-55) % Transferrin (202-364) mg/dL Prealbumin (17.0-34.0) mg/dL Vitamin B12 (193-986) pg/ml Vitamin D 25-Hydroxy (30.0-100.0) ng/ml Folate (8.6-58.9) ng/mL Procalcitonin (<0.10) ng/mL Corey Results Last 24 Hours: Microbiology 01/19/20 09:28 Aerobic Blood Culture - Preliminary Blood - Venous Gram Positive Rods Anaerobic Blood Culture - Preliminary NO GROWTH AFTER 2 DAYS 01/19/20 09:39 Aerobic Blood Culture - Preliminary Blood - Venous - Lab Draw NO GROWTH AFTER 2 DAYS Anaerobic Blood Culture - Preliminary NO GROWTH AFTER 2 DAYS 01/19/20 12:00 Urine Culture - Final Urine, Catheterized Escherichia Coli Med Orders - Current: Current Medications Acetaminophen (Tylenol) 650 mg PO Q6H PRN PRN Reason: Pain (Mild 1-3) or Fever Last Admin: 01/22/20 05:48 Dose: 650 mg Diphenhydramine HCl (Benadryl) 25 mg IVPUSH Q4H PRN PRN Reason: Restlessness or Allergies Duloxetine HCl (Cymbalta) 60 mg PO DAILY@1700 [facility] Last Admin: 01/21/20 17:41 Dose: 60 mg Enoxaparin Sodium (Lovenox) 40 mg SUBCUT DAILY [facility] Last Admin: 01/22/20 08:29 Dose: 40 mg Ferrous Sulfate (Ferrous Sulfate) 324 mg PO Q48H [facility] Fludrocortisone Acetate (Florinef) 0.1 mg PO DAILY [facility] Last Admin: 01/22/20 08:28 Dose: 0.1 mg Folic Acid (Folic Acid) 1 mg PO DAILY [facility] Last Admin: 01/22/20 08:28 Dose: 1 mg Hydralazine HCl (Apresoline) 10 mg IVPUSH Q6H PRN PRN Reason: Hypertension Ceftriaxone Sodium 2 gm/ (Sodium Chloride) 100 mls @ 200 mls/hr IV Q24H [facility] Last Admin: 01/21/20 13:10 Dose: 200 mls/hr Loratadine (Claritin) 10 mg PO DAILY [facility] Last Admin: 01/22/20 08:28 Dose: 10 mg Methylprednisolone Sodium Succinate (Solu-Medrol) 125 mg IVPUSH Q4H [facility] Stop: 01/22/20 09:01 Last Admin: 01/22/20 08:28 Dose: 125 mg Morphine Sulfate (Ms Contin) 45 mg PO Q24H [facility] Last Admin: 01/21/20 20:32 Dose: 45 mg Nystatin (Nystop) 0 gm TOP BID PRN PRN Reason: Itching Last Admin: 01/21/20 10:25 Dose: 1 applic Ondansetron HCl (Zofran) 4 mg IVPUSH Q4H PRN PRN Reason: Nausea and Vomiting Last Admin: 01/20/20 19:09 Dose: 4 mg Ropinirole HCl (Requip) 0.5 mg PO BEDTIME [facility] Last Admin: 01/21/20 20:26 Dose: 0.5 mg Trazodone HCl (Trazodone) 50 mg PO BEDTIME [facility] Last Admin: 01/21/20 20:26 Dose: 50 mg Discontinued Medications Acetaminophen (Tylenol) 975 mg PO NOW ONE Stop: 01/19/20 12:25 Last Admin: 01/19/20 12:45 Dose: 975 mg Acetaminophen (Tylenol) 650 mg RECTAL Q6H PRN PRN Reason: Pain (Mild 1-3) or Fever Hydrocodone Bitart/Acetaminophen ([place] 325-5 Mg) 1 tab PO Q6H PRN PRN Reason: Pain (moderate 4-6) Last Admin: 01/21/20 09:03 Dose: 1 tab Duloxetine HCl (Cymbalta) 60 mg PO DAILY [facility] Last Admin: 01/20/20 09:56 Dose: Not Given Ferrous Sulfate (Ferrous Sulfate) 324 mg PO DAILY [facility] Last Admin: 01/21/20 09:05 Dose: 324 mg Meropenem 1 gm/ Sodium (Chloride) 100 mls @ 200 mls/hr IV Q8H [facility] Last Admin: 01/19/20 13:44 Dose: 200 mls/hr Sodium Chloride (Normal Saline) 1,000 mls @ 75 mls/hr IV ASDIRECTED [facility] Last Admin: 05/03/20 06:18 Dose: 75 mls/hr Meropenem/Sodium Chloride 500 (mg/ Premix) 50 mls @ 100 mls/hr IV Q6H [facility] Last Admin: 01/21/20 09:07 Dose: 100 mls/hr Methylprednisolone Sodium Succinate (Solu-Medrol) 125 mg IVPUSH ONETIME ONE Stop: 01/19/20 09:07 Last Admin: 01/19/20 09:29 Dose: 125 mg Methylprednisolone Sodium Succinate (Solu-Medrol) 80 mg IVPUSH Q8H [facility] Last Admin: 01/19/20 15:23 Dose: Not Given Morphine Sulfate (Morphine) 2 mg IVPUSH Q4H PRN PRN Reason: Pain (severe 7-10) Morphine Sulfate (Morphine) 2 mg IVPUSH ONETIME ONE Stop: 01/21/20 14:20 Last Admin: 01/21/20 14:33 Dose: 2 mg Non-Formulary Medication (Cetirizine) 10 mg PO DAILY [facility] Non-Formulary Medication (Diclofenac/Hyaluronate/Niacin [Diclofen 3%-Hyaluron 2% -Niac4%]) 2 gm TOP BID PRN PRN Reason: Pain Non-Formulary Medication (Duloxetine) 60 mg PO DAILY [facility] Non-Formulary Medication (Lutein [Lutein]) 40 mg PO DAILY [facility] Non-Formulary Medication (Lycopene [Lycopene]) 10 mg PO DAILY [facility] Non-Formulary Medication (Ropinirole) 0.5 mg PO BEDTIME [facility] Oxycodone HCl (Oxycodone) 7.5 mg PO Q6H PRN PRN Reason: Pain Last Admin: 01/21/20 14:12 Dose: 7.5 mg Senna/Docusate Sodium (Senna Plus) 2 tab PO BID [facility] Last Admin: 01/21/20 09:05 Dose: 2 tab - Exam Quality Assessment: DVT Prophylaxis General: Alert, Oriented, Cooperative, No Acute Distress HEENT: Pupils Equal, Pupils Reactive Neck: Supple, Trachea Midline Lungs: Clear to Auscultation, Normal Respiratory Effort Cardiovascular: Regular Rate, Regular Rhythm GI/Abdominal Exam: Soft, Non-Tender, No Distention, Abnormal Bowel Sounds ( hyperactive ) (Female) Exam: Deferred Back Exam: Normal Inspection, Full Range of Motion Extremities: Normal Range of Motion, Non-Tender, No Pedal Edema, Normal Capillary Refill, Other. No: Increased Warmth Skin: Warm, Dry, Intact Wound/Incisions: Healing Well, Dressing Dry and Intact, No Drainage. No: Erythema Neurological: No New Focal Deficit Psy/Mental Status: Alert, Normal Affect, Normal Mood Sepsis Event Note - Evaluation Sepsis Screening Result: No Definite Risk - Focused Exam Vital Signs: Vital Signs Temp Pulse Resp BP Pulse Ox 01/22/20 07:41 98.2 F 64 15 132/88 97 01/22/20 05:41 97.5 F 60 18 115/66 96 01/22/20 01:08 97.0 F 64 18 119/79 95 Date Exam was Performed: 01/22/20 Time Exam was Performed: 13:25 - Problem List & Annotations (1) Arthralgia SNOMED Code(s): 72867998 Code(s): M25.50 - PAIN IN UNSPECIFIED JOINT Status: Acute Priority: High Current Visit: Yes Qualifiers: Joint pain location: unspecified Qualified Code(s): M25.50 - Pain in unspecified joint (2) Rheumatoid arthritis flare SNOMED Code(s): 120190006 Code(s): M06.9 - RHEUMATOID ARTHRITIS, UNSPECIFIED Status: Acute Priority : High Current Visit: Yes (3) UTI (urinary tract infection) SNOMED Code(s): 40350042 Code(s): N39.0 - URINARY TRACT INFECTION, SITE NOT SPECIFIED Status: Acute Priority: High Current Visit: Yes Qualifiers: Urinary tract infection type: site unspecified Hematuria presence: without hematuria Qualified Code(s): N39.0 - Urinary tract infection, site not specified (4) Ulcers of both lower extremities SNOMED Code(s): 59542061 Code(s): L97.919 - NON-PRS CHRONIC ULC UNSP PRT OF R LOW LEG W UNSP SEVERITY ; L97.929 - NON-PRS CHRONIC ULC UNSP PRT OF L LOW LEG W UNSP SEVERITY Status: Chronic Priority: High Current Visit: Yes Qualifiers: Non-pressure ulcer stage: unspecified non-pressure ulcer stage Qualified Code(s): L97.919 - Non-pressure chronic ulcer of unspecified part of right lower leg with unspecified severity; L97.929 - Non-pressure chronic ulcer of unspecified part of left lower leg with unspecified severity (5) Hypocalcemia SNOMED Code(s): 1072363 Code(s): E83.51 - HYPOCALCEMIA Status: Chronic Priority: Medium Current Visit: No (6) PVD (peripheral vascular disease) SNOMED Code(s): 146217883 Code(s): I73.9 - PERIPHERAL VASCULAR DISEASE, UNSPECIFIED Status: Chronic Priority: Medium Current Visit: No (7) Recurrent UTI SNOMED Code(s): 249847927 Code(s): N39.0 - URINARY TRACT INFECTION, SITE NOT SPECIFIED Status: Chronic Priority: Medium Current Visit: Yes (8) GERD (gastroesophageal reflux disease) SNOMED Code(s): 162050564 Code(s): K21.9 - GASTRO-ESOPHAGEAL REFLUX DISEASE WITHOUT ESOPHAGITIS Status: Chronic Priority: Low Current Visit: No Qualifiers: Esophagitis presence: esophagitis presence not specified Qualified Code(s) : K21.9 - Gastro-esophageal reflux disease without esophagitis (9) Urinary incontinence SNOMED Code(s): 472527543 Code(s): R32 - UNSPECIFIED URINARY INCONTINENCE Status: Chronic Priority : Medium Current Visit: Yes Qualifiers: Urinary Incontinence type: unspecified incontinence Qualified Code(s): R32 - Unspecified urinary incontinence (10) Urinary retention SNOMED Code(s): 033593324 Code(s): R33.9 - RETENTION OF URINE, UNSPECIFIED Status: Acute Priority: High Current Visit: Yes (11) Fibromyalgia SNOMED Code(s): 841295607 Code(s): M79.7 - FIBROMYALGIA Status: Chronic Priority: Medium Current Visit: Yes (12) Peripheral neuropathy SNOMED Code(s): 315374058 Code(s): G62.9 - POLYNEUROPATHY, UNSPECIFIED Status: Chronic Priority: Medium Current Visit: Yes Qualifiers: Peripheral neuropathy type: polyneuropathy, unspecified Qualified Code(s): G62.9 - Polyneuropathy, unspecified (13) RLS (restless legs syndrome) SNOMED Code(s): 33742296 Code(s): G25.81 - RESTLESS LEGS SYNDROME Status: Chronic Current Visit: Yes (14) Type II diabetes mellitus SNOMED Code(s): 05556306 Code(s): E11.9 - TYPE 2 DIABETES MELLITUS WITHOUT COMPLICATIONS Status: Chronic Priority: Medium Current Visit: Yes Qualifiers: Diabetes mellitus terminal worker insulin use: unspecified terminal worker insulin use status Diabetes mellitus complication status: with other specified complication Qualified Code(s): E11.69 - Type 2 diabetes mellitus with other specified complication (15) Morbid obesity SNOMED Code(s): 097362844 Code(s): E66.01 - MORBID (SEVERE) OBESITY DUE TO EXCESS CALORIES Status: Chronic Priority: High Current Visit: Yes (16) Physical deconditioning SNOMED Code(s): 54307931760613 Code(s): R53.81 - OTHER MALAISE Status: Chronic Priority: High Current Visit: Yes (17) Leukocytosis SNOMED Code(s): 272928317, 090052061 Code(s): D72.829 - ELEVATED WHITE BLOOD CELL COUNT, UNSPECIFIED Status: Acute Priority: High Current Visit: Yes Qualifiers: Leukocytosis type: unspecified Qualified Code(s): D72.829 - Elevated white blood cell count, unspecified (18) Rheumatoid arthritis SNOMED Code(s): 35382639 Code(s): M06.9 - RHEUMATOID ARTHRITIS, UNSPECIFIED Status: Acute Priority : High Current Visit: Yes Qualifiers: Rheumatoid arthritis location: multiple sites Rheumatoid factor presence: unspecified presence Qualified Code(s): M06.9 - Rheumatoid arthritis, unspecified (19) Wheelchair confinement status SNOMED Code(s): 717429633, 917511562 Code(s): Z99.3 - DEPENDENCE ON WHEELCHAIR Status: Chronic Priority: High Current Visit: Yes (20) Decubital ulcer SNOMED Code(s): 933312507 Code(s): L89.90 - PRESSURE ULCER OF UNSPECIFIED SITE, UNSPECIFIED STAGE Status: Chronic Priority: Medium Current Visit: Yes Qualifiers: Pressure injury location: buttock Pressure injury stage: unspecified pressure injury stage Laterality: unspecified laterality Qualified Code(s): L89.309 - Pressure ulcer of unspecified buttock, unspecified stage (21) History of MRSA infection SNOMED Code(s): 193808389, 761349737 Code(s): Z86.14 - PERSONAL HISTORY OF METHICILLIN RESIS STAPH INFECTION Status: Acute Priority: High Current Visit: Yes (22) Anemia SNOMED Code(s): 904000557 Code(s): D64.9 - ANEMIA, UNSPECIFIED Status: Acute Priority: High Current Visit: Yes Qualifiers: Anemia type: other cause Other causes of anemia: other cause, not classified Qualified Code(s): D64.89 - Other specified anemias (23) Positive blood culture SNOMED Code(s): 732029561 Code(s): R78.81 - BACTEREMIA Status: Acute Priority: High Current Visit : Yes (24) Diarrhea SNOMED Code(s): 50729795 Code(s): R19.7 - DIARRHEA, UNSPECIFIED Status: Acute Priority: Medium Current Visit: Yes Qualifiers: Diarrhea type: unspecified type Qualified Code(s): R19.7 - Diarrhea, unspecified - Problem List Review Problem List Initiated/Reviewed/Updated: Yes - My Orders Last 24 Hours: My Active Orders 01/21/20 08:59 Consult to Development Educator [CONS] Routine 01/21/20 21:00 Morphine [MS Contin] 45 mg PO Q24H 01/22/20 07:54 BASIC METABOLIC PANEL,BMP [CHEM] Routine CBC WITH AUTO DIFF [HEME] Routine MAGNESIUM [CHEM] Routine PHOSPHORUS [CHEM] Routine - Assessment Assessment:: See plan - Plan Plan:: Severe joint pain secondary to RA flare up RA Fibromyalgia/chronic pain Chronic neuropathy Morbid obesity - BMI 73.6 Chronic hx of RA- currently receiving methotrexate 17.5 mg po weekly, folic acid supplementation. On multiple chronic pain and anti-inflammatory meds including oxycodone, cymbalta, fludrocortisone, and topical creams Given Solumedrol 125 mg IV x1 in the ED ESR remains elevated 113 (84 on admission and increasing) CRP 5.2 (8.2 on admission and decreasing) PLAN - Discontinue Solumedrol 125 mg IV Q4H. Start 40mg daily prednisone tomorrow AM. - Message left her sericulturist Dr. Nas Hurtado - awaiting call back - Will adjust pain medications as patient reports taking oxycodone essentially scheduled and significant doses of Tylenol for breakthrough pain - Consult utility appraiser Positive blood culture Positive for gram positive bacteria on 1 of 4 bottles E.coli growing in urine as above No fevers, WBC elevated (likely 2/2 steroid) But trending down PLAN - Repeat BC today 01/22/20 from peripheral and port - Echo to r/o vegetation - Continue Rocephin pending repeat BC Urinary tract infection Recurrent UTIs Urinary retention/incontinence Hx of multiple and recurrent UTIs. Prior urine culture from 12/07/19 shows E.coli sensitive to meropenem On admission patient is found tachicardic, febrile and WBC 10.66 Reports self cath 5 x daily CXR negative for pneumonia 650 ml urine after straight cath and bladder scan Blood cultures negative Urine cultures showing e. coli with multiple sensitivities Procalcitonin 0.23, Lactic acid 0.9 PLAN - Switch from meropenem to Rocephin - continue Rocephin pending repeat BC - Continue see catheter Leukocytosis Anemia WBC trended up to 16.93 probably secondary to steroids vs UTI Hgb trending 11.5-->11.1-->10.5-->10.8 Acute on chronic anemia PLAN - Continue abx IV as above - Monitor VS - Continue to monitor WBC - Anemia work-up Debilitating/Deconditioned Wheelchair bound status Wheelchair bound Patient lives by herself at home independently even though present condition. 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 Marmolejo at [facility] for wound care. PLAN - Continue daily wound care as per protocol - Consult PT wound care - Repeat procalcitonin today Hypertension Stable, BP 123/78 on admission. Today 124/60 PLAN -Hold home meds for now -Hydralazine IV PRN Restless leg syndrome PLAN - Continue home ropinirole Diarrhea New onset with loose stools today PLAN - C-diff testing due to ABX - If negative then may get antidiarrheals PROPHYLAXIX DVT- Lovenox 40 mg subcut q24h GI- not indicated CODE STATUS: Full Code DISPOSITION Patient is improving since admission but remains with moderate pain. Awaiting repeat BC. LOS >96hr pending repeat blood cultures.
[2020-01-22] MEDS: Ondansetron 4 MG/2 ML SDV IVPUSH PRN (10:58)
[2020-01-22] MEDS ORDERED: Acetaminophen/Codeine 300-30 MG Tab PO PRN (11:09)
[2020-01-22] MEDS: cefTRIAXone 2 GM in Sodium Chloride 0.9% 100 ML IV SCH (14:44)
[2020-01-22] MEDS: DULoxetine 30 MG Cap PO SCH (16:18)
[2020-01-22] MEDS: Acetaminophen/Codeine 300-30 MG Tab PO PRN (16:19)
[2020-01-22] MEDS: rOPINIRole 0.25 MG Tab PO SCH (20:37)
[2020-01-22] MEDS: Morphine 15 MG Tab.ER PO SCH (20:37)
[2020-01-22] MEDS: traZODone 50 MG Tab PO SCH (20:37)
[2020-01-22] MEDS: Vancomycin 125 MG Cap PO SCH ×2 (20:38→20:40)
[2020-01-23] MEDS: Acetaminophen/Codeine 300-30 MG Tab PO PRN ×3 (06:27→16:19)
--- NOTE | 2020-01-23 07:13 | PCM.PN ---
- General Info Date of Service: 01/23/20 Admission Dx/Problem (Free Text): RA Flare, UTI Subjective Update: Last BM yesterday Reports pain is well controlled No new concerns Reports first full night of sleep in a long time. Denies any other new symptoms. Discussed C. Diff precautions and need for handwashing, bleach cleaning. Functional Status: Reports: Pain Controlled, Tolerating Diet, Ambulating (a bit ), Urinating (see in place ). Denies: New Symptoms - Review of Systems General: Reports: No Symptoms, Weakness, Fatigue. Denies: Fever, Malaise, Chills HEENT: Reports: No Symptoms. Denies: Headaches, Sore Throat Pulmonary: Reports: No Symptoms. Denies: Shortness of Breath, Cough, Sputum Cardiovascular: Reports: No Symptoms. Denies: Chest Pain, Palpitations Gastrointestinal: Reports: Diarrhea. Denies: Abdominal Pain, Constipation, Nausea, Vomiting Genitourinary: Reports: No Symptoms. Denies: Pain Musculoskeletal: Reports: Joint Pain, Other (general myalgias ) Skin: Reports: Other (Bilateral lower leg wounds ) Neurological: Reports: No Symptoms, Difficulty Walking, Weakness, Gait Disturbance. Denies: Confusion Psychiatric: Reports: No Symptoms - Patient Data Vitals - Most Recent: Last Vital Signs Temp 98.1 F 01/23/20 05:38 Pulse 58 L 01/23/20 05:38 Resp 18 01/23/20 05:38 BP 140/67 01/23/20 05:38 Pulse Ox 97 01/23/20 05:38 Weight - Most Recent: 200 lb I&O - Last 24 Hours: Intake & Output 01/22/20 01/23/20 01/23/20 22:59 06:59 14:59 Intake Total 700 500 Output Total 250 600 Balance 450 -100 Lab Results Last 24 Hours: Laboratory Results - last 24 hr 01/22/20 01/22/20 01/22/20 Range/Units 07:54 07:54 15:55 WBC 12.72 H (3.98-10.04) K/mm3 RBC 3.45 L (3.98-5.22) M/mm3 Hgb 10.8 L (11.2-15.7) gm/dl Hct 34.5 (34.1-44.9) % MCV 100.0 H (79.4-94.8) fl MCH 31.3 (25.6-32.2) pg MCHC 31.3 L (32.2-35.5) g/dl RDW Std Deviation 49.2 H (36.4-46.3) fL Plt Count 390 H (182-369) K/mm3 MPV 9.0 L (9.4-12.3) fl Neut % (Auto) 88.8 H (34.0-71.1) % Lymph % (Auto) 10.1 L (19.3-51.7) % [place] % (Auto) 0.9 L (4.7-12.5) % Eos % (Auto) 0 L (0.7-5.8) Baso % (Auto) 0.0 L (0.1-1.2) % Neut # (Auto) 11.30 H (1.56-6.13) K/mm3 Lymph # (Auto) 1.28 (1.18-3.74) K/mm3 [place] # (Auto) 0.12 L (0.24-0.36) K/mm3 Eos # (Auto) 0.00 L (0.04-0.36) K/mm3 Baso # (Auto) 0.00 L (0.01-0.08) K/mm3 Manual Slide Review Abnormal smear Sodium 139 (136-145) mEq/L Potassium 4.0 (3.5-5.1) mEq/L Chloride 105 (98-107) mEq/L Carbon Dioxide 22 (21-32) mEq/L Anion Gap 16.0 H (5-15) BUN 34 H (7-18) mg/dL Creatinine 1.1 H (0.55-1.02) mg/dL Est Cr Clr Drug Dosing 46.49 mL/min Estimated GFR (MDRD) 50 (>60) mL/min BUN/Creatinine Ratio 30.9 H (14-18) Glucose 140 H (80-115) mg/dL Calcium 7.0 L (8.5-10.1) mg/dL Phosphorus 3.9 (2.6-4.7) mg/dL Magnesium 2.2 (1.8-2.4) mg/dl C.difficile 027-NAP1-B1 Presumptive negative C. difficile Tox (PCR) Positive H 01/23/20 01/23/20 Range/Units 05:33 05:33 WBC 9.74 (3.98-10.04) K/mm3 RBC 3.36 L (3.98-5.22) M/mm3 Hgb 10.3 L (11.2-15.7) gm/dl Hct 34.0 L (34.1-44.9) % MCV 101.2 H (79.4-94.8) fl MCH 30.7 (25.6-32.2) pg MCHC 30.3 L (32.2-35.5) g/dl RDW Std Deviation 50.5 H (36.4-46.3) fL Plt Count 358 (182-369) K/mm3 MPV 9.2 L (9.4-12.3) fl Neut % (Auto) 78.5 H (34.0-71.1) % Lymph % (Auto) 15.0 L (19.3-51.7) % [place] % (Auto) 6.1 (4.7-12.5) % Eos % (Auto) 0.1 L (0.7-5.8) Baso % (Auto) 0.1 (0.1-1.2) % Neut # (Auto) 7.65 H (1.56-6.13) K/mm3 Lymph # (Auto) 1.46 (1.18-3.74) K/mm3 [place] # (Auto) 0.59 H (0.24-0.36) K/mm3 Eos # (Auto) 0.01 L (0.04-0.36) K/mm3 Baso # (Auto) 0.01 (0.01-0.08) K/mm3 Manual Slide Review Sodium 139 (136-145) mEq/L Potassium 4.3 (3.5-5.1) mEq/L Chloride 105 (98-107) mEq/L Carbon Dioxide 24 (21-32) mEq/L Anion Gap 14.3 (5-15) BUN 33 H (7-18) mg/dL Creatinine 1.1 H (0.55-1.02) mg/dL Est Cr Clr Drug Dosing 46.49 mL/min Estimated GFR (MDRD) 50 (>60) mL/min BUN/Creatinine Ratio 30.0 H (14-18) Glucose 116 H (80-115) mg/dL Calcium 6.7 L (8.5-10.1) mg/dL Phosphorus (2.6-4.7) mg/dL Magnesium (1.8-2.4) mg/dl C.difficile 027-NAP1-B1 C. difficile Tox (PCR) Corey Results Last 24 Hours: Microbiology 01/19/20 09:39 Aerobic Blood Culture - Preliminary Blood - Venous - Lab Draw NO GROWTH AFTER 3 DAYS Anaerobic Blood Culture - Preliminary NO GROWTH AFTER 3 DAYS 01/19/20 09:28 Aerobic Blood Culture - Preliminary Blood - Venous Gram Positive Rods Anaerobic Blood Culture - Preliminary NO GROWTH AFTER 3 DAYS Med Orders - Current: Current Medications Acetaminophen (Tylenol) 650 mg PO Q6H PRN PRN Reason: Pain (Mild 1-3) or Fever Last Admin: 01/22/20 05:48 Dose: 650 mg Acetaminophen/Codeine Phosphate (Tylenol With Codeine No.3 300mg/30mg) 2 tab PO Q4H PRN PRN Reason: Breakthrough Pain Last Admin: 01/23/20 06:27 Dose: 2 tab Diphenhydramine HCl (Benadryl) 25 mg IVPUSH Q4H PRN PRN Reason: Restlessness or Allergies Duloxetine HCl (Cymbalta) 60 mg PO DAILY@1700 [facility] Last Admin: 01/22/20 16:18 Dose: 60 mg Enoxaparin Sodium (Lovenox) 40 mg SUBCUT DAILY [facility] Last Admin: 01/22/20 08:29 Dose: 40 mg Ferrous Sulfate (Ferrous Sulfate) 324 mg PO Q48H [facility] Fludrocortisone Acetate (Florinef) 0.1 mg PO DAILY [facility] Last Admin: 01/22/20 08:28 Dose: 0.1 mg Folic Acid (Folic Acid) 1 mg PO DAILY [facility] Last Admin: 01/22/20 08:28 Dose: 1 mg Hydralazine HCl (Apresoline) 10 mg IVPUSH Q6H PRN PRN Reason: Hypertension Ceftriaxone Sodium 2 gm/ (Sodium Chloride) 100 mls @ 200 mls/hr IV Q24H [facility] Last Admin: 01/22/20 14:44 Dose: 200 mls/hr Loratadine (Claritin) 10 mg PO DAILY [facility] Last Admin: 01/22/20 08:28 Dose: 10 mg Morphine Sulfate (Ms Contin) 45 mg PO Q24H [facility] Last Admin: 01/22/20 20:37 Dose: 45 mg Nystatin (Nystop) 0 gm TOP BID PRN PRN Reason: Itching Last Admin: 01/21/20 10:25 Dose: 1 applic Ondansetron HCl (Zofran) 4 mg IVPUSH Q4H PRN PRN Reason: Nausea and Vomiting Last Admin: 01/22/20 10:58 Dose: 4 mg Prednisone (Prednisone) 40 mg PO DAILY [facility] Ropinirole HCl (Requip) 0.5 mg PO BEDTIME [facility] Last Admin: 01/22/20 20:37 Dose: 0.5 mg Trazodone HCl (Trazodone) 50 mg PO BEDTIME [facility] Last Admin: 01/22/20 20:37 Dose: 50 mg Vancomycin HCl (Vancomycin) 125 mg PO QID [facility] Last Admin: 01/22/20 20:40 Dose: Not Given Discontinued Medications Acetaminophen (Tylenol) 975 mg PO NOW ONE Stop: 01/19/20 12:25 Last Admin: 01/19/20 12:45 Dose: 975 mg Acetaminophen (Tylenol) 650 mg RECTAL Q6H PRN PRN Reason: Pain (Mild 1-3) or Fever Acetaminophen/Codeine Phosphate (Tylenol With Codeine No.3 300mg/30mg) 1 tab PO Q6H PRN PRN Reason: Breakthrough Pain Last Admin: 01/22/20 12:07 Dose: 1 tab Hydrocodone Bitart/Acetaminophen ([place] 325-5 Mg) 1 tab PO Q6H PRN PRN Reason: Pain (moderate 4-6) Last Admin: 01/21/20 09:03 Dose: 1 tab Duloxetine HCl (Cymbalta) 60 mg PO DAILY [facility] Last Admin: 01/20/20 09:56 Dose: Not Given Ferrous Sulfate (Ferrous Sulfate) 324 mg PO DAILY [facility] Last Admin: 01/21/20 09:05 Dose: 324 mg Meropenem 1 gm/ Sodium (Chloride) 100 mls @ 200 mls/hr IV Q8H [facility] Last Admin: 01/19/20 13:44 Dose: 200 mls/hr Sodium Chloride (Normal Saline) 1,000 mls @ 75 mls/hr IV ASDIRECTED [facility] Last Admin: 01/20/20 04:19 Dose: 75 mls/hr Meropenem/Sodium Chloride 500 (mg/ Premix) 50 mls @ 100 mls/hr IV Q6H [facility] Last Admin: 01/21/20 09:07 Dose: 100 mls/hr Methylprednisolone Sodium Succinate (Solu-Medrol) 125 mg IVPUSH ONETIME ONE Stop: 01/19/20 09:07 Last Admin: 01/19/20 09:29 Dose: 125 mg Methylprednisolone Sodium Succinate (Solu-Medrol) 80 mg IVPUSH Q8H [facility] Last Admin: 01/19/20 15:23 Dose: Not Given Methylprednisolone Sodium Succinate (Solu-Medrol) 125 mg IVPUSH Q4H [facility] Stop: 01/22/20 09:01 Last Admin: 01/22/20 08:28 Dose: 125 mg Morphine Sulfate (Morphine) 2 mg IVPUSH Q4H PRN PRN Reason: Pain (severe 7-10) Morphine Sulfate (Morphine) 2 mg IVPUSH ONETIME ONE Stop: 01/21/20 14:20 Last Admin: 01/21/20 14:33 Dose: 2 mg Non-Formulary Medication (Cetirizine) 10 mg PO DAILY [facility] Non-Formulary Medication (Diclofenac/Hyaluronate/Niacin [Diclofen 3%-Hyaluron 2% -Niac4%]) 2 gm TOP BID PRN PRN Reason: Pain Non-Formulary Medication (Duloxetine) 60 mg PO DAILY [facility] Non-Formulary Medication (Lutein [Lutein]) 40 mg PO DAILY [facility] Non-Formulary Medication (Lycopene [Lycopene]) 10 mg PO DAILY [facility] Non-Formulary Medication (Ropinirole) 0.5 mg PO BEDTIME [facility] Oxycodone HCl (Oxycodone) 7.5 mg PO Q6H PRN PRN Reason: Pain Last Admin: 01/21/20 14:12 Dose: 7.5 mg Senna/Docusate Sodium (Senna Plus) 2 tab PO BID [facility] Last Admin: 01/21/20 09:05 Dose: 2 tab - Exam Quality Assessment: Urine Catheter, DVT Prophylaxis General: Alert, Oriented, Cooperative, No Acute Distress HEENT: Pupils Equal, Pupils Reactive Neck: Supple, Trachea Midline Lungs: Clear to Auscultation, Normal Respiratory Effort Cardiovascular: Regular Rate, Regular Rhythm GI/Abdominal Exam: Normal Bowel Sounds, Soft, Non-Tender, No Distention (Female) Exam: Deferred Extremities: Non-Tender, Other (Bilateral leg wounds with bandages in place. ) Skin: Warm, Dry, Intact, Ecchymosis Wound/Incisions: Dressing Dry and Intact, No Drainage. No: Erythema Neurological: No New Focal Deficit Psy/Mental Status: Alert Sepsis Event Note - Evaluation Sepsis Screening Result: No Definite Risk - Focused Exam Vital Signs: Vital Signs Temp Pulse Resp BP Pulse Ox 01/23/20 05:38 98.1 F 58 L 18 140/67 97 01/22/20 19:46 116/62 01/22/20 19:42 98.1 F 55 L 16 126/97 H 95 Date Exam was Performed: 01/23/20 Time Exam was Performed: 08:14 - Problem List & Annotations (1) Arthralgia SNOMED Code(s): 19832806 Code(s): M25.50 - PAIN IN UNSPECIFIED JOINT Status: Acute Priority: High Current Visit: Yes Qualifiers: Joint pain location: unspecified Qualified Code(s): M25.50 - Pain in unspecified joint (2) Rheumatoid arthritis flare SNOMED Code(s): 681450054 Code(s): M06.9 - RHEUMATOID ARTHRITIS, UNSPECIFIED Status: Acute Priority : High Current Visit: Yes (3) UTI (urinary tract infection) SNOMED Code(s): 06125937 Code(s): N39.0 - URINARY TRACT INFECTION, SITE NOT SPECIFIED Status: Acute Priority: High Current Visit: Yes Qualifiers: Urinary tract infection type: site unspecified Hematuria presence: without hematuria Qualified Code(s): N39.0 - Urinary tract infection, site not specified (4) Ulcers of both lower extremities SNOMED Code(s): 47315964 Code(s): L97.919 - NON-PRS CHRONIC ULC UNSP PRT OF R LOW LEG W UNSP SEVERITY ; L97.929 - NON-PRS CHRONIC ULC UNSP PRT OF L LOW LEG W UNSP SEVERITY Status: Chronic Priority: High Current Visit: Yes Qualifiers: Non-pressure ulcer stage: unspecified non-pressure ulcer stage Qualified Code(s): L97.919 - Non-pressure chronic ulcer of unspecified part of right lower leg with unspecified severity; L97.929 - Non-pressure chronic ulcer of unspecified part of left lower leg with unspecified severity (5) Hypocalcemia SNOMED Code(s): 5986508 Code(s): E83.51 - HYPOCALCEMIA Status: Chronic Priority: Medium Current Visit: No (6) PVD (peripheral vascular disease) SNOMED Code(s): 049613655 Code(s): I73.9 - PERIPHERAL VASCULAR DISEASE, UNSPECIFIED Status: Chronic Priority: Medium Current Visit: No (7) Recurrent UTI SNOMED Code(s): 841494484 Code(s): N39.0 - URINARY TRACT INFECTION, SITE NOT SPECIFIED Status: Chronic Priority: Medium Current Visit: Yes (8) GERD (gastroesophageal reflux disease) SNOMED Code(s): 465308700 Code(s): K21.9 - GASTRO-ESOPHAGEAL REFLUX DISEASE WITHOUT ESOPHAGITIS Status: Chronic Priority: Low Current Visit: No Qualifiers: Esophagitis presence: esophagitis presence not specified Qualified Code(s) : K21.9 - Gastro-esophageal reflux disease without esophagitis (9) Urinary incontinence SNOMED Code(s): 312195823 Code(s): R32 - UNSPECIFIED URINARY INCONTINENCE Status: Chronic Priority : Medium Current Visit: Yes Qualifiers: Urinary Incontinence type: unspecified incontinence Qualified Code(s): R32 - Unspecified urinary incontinence (10) Urinary retention SNOMED Code(s): 592562363 Code(s): R33.9 - RETENTION OF URINE, UNSPECIFIED Status: Acute Priority: High Current Visit: Yes (11) Fibromyalgia SNOMED Code(s): 342752546 Code(s): M79.7 - FIBROMYALGIA Status: Chronic Priority: Medium Current Visit: Yes (12) Peripheral neuropathy SNOMED Code(s): 958163980 Code(s): G62.9 - POLYNEUROPATHY, UNSPECIFIED Status: Chronic Priority: Medium Current Visit: Yes Qualifiers: Peripheral neuropathy type: polyneuropathy, unspecified Qualified Code(s): G62.9 - Polyneuropathy, unspecified (13) RLS (restless legs syndrome) SNOMED Code(s): 41191808 Code(s): G25.81 - RESTLESS LEGS SYNDROME Status: Chronic Current Visit: Yes (14) Type II diabetes mellitus SNOMED Code(s): 96717213 Code(s): E11.9 - TYPE 2 DIABETES MELLITUS WITHOUT COMPLICATIONS Status: Chronic Priority: Medium Current Visit: Yes Qualifiers: Diabetes mellitus general office assistant insulin use: unspecified general office assistant insulin use status Diabetes mellitus complication status: with other specified complication Qualified Code(s): E11.69 - Type 2 diabetes mellitus with other specified complication (15) Morbid obesity SNOMED Code(s): 785615963 Code(s): E66.01 - MORBID (SEVERE) OBESITY DUE TO EXCESS CALORIES Status: Chronic Priority: High Current Visit: Yes (16) Physical deconditioning SNOMED Code(s): 91535240057262 Code(s): R53.81 - OTHER MALAISE Status: Chronic Priority: High Current Visit: Yes (17) Leukocytosis SNOMED Code(s): 938088337, 827001035 Code(s): D72.829 - ELEVATED WHITE BLOOD CELL COUNT, UNSPECIFIED Status: Acute Priority: High Current Visit: Yes Qualifiers: Leukocytosis type: unspecified Qualified Code(s): D72.829 - Elevated white blood cell count, unspecified (18) Rheumatoid arthritis SNOMED Code(s): 47316064 Code(s): M06.9 - RHEUMATOID ARTHRITIS, UNSPECIFIED Status: Acute Priority : High Current Visit: Yes Qualifiers: Rheumatoid arthritis location: multiple sites Rheumatoid factor presence: unspecified presence Qualified Code(s): M06.9 - Rheumatoid arthritis, unspecified (19) Wheelchair confinement status SNOMED Code(s): 623559916, 694149357 Code(s): Z99.3 - DEPENDENCE ON WHEELCHAIR Status: Chronic Priority: High Current Visit: Yes (20) Decubital ulcer SNOMED Code(s): 617693514 Code(s): L89.90 - PRESSURE ULCER OF UNSPECIFIED SITE, UNSPECIFIED STAGE Status: Chronic Priority: Medium Current Visit: Yes Qualifiers: Pressure injury location: buttock Pressure injury stage: unspecified pressure injury stage Laterality: unspecified laterality Qualified Code(s): L89.309 - Pressure ulcer of unspecified buttock, unspecified stage (21) History of MRSA infection SNOMED Code(s): 589435396, 212134661 Code(s): Z86.14 - PERSONAL HISTORY OF METHICILLIN RESIS STAPH INFECTION Status: Acute Priority: High Current Visit: Yes (22) Anemia SNOMED Code(s): 763211586 Code(s): D64.9 - ANEMIA, UNSPECIFIED Status: Acute Priority: High Current Visit: Yes Qualifiers: Anemia type: other cause Other causes of anemia: other cause, not classified Qualified Code(s): D64.89 - Other specified anemias (23) Positive blood culture SNOMED Code(s): 530841940 Code(s): R78.81 - BACTEREMIA Status: Acute Priority: High Current Visit : Yes (24) Diarrhea SNOMED Code(s): 45100833 Code(s): R19.7 - DIARRHEA, UNSPECIFIED Status: Acute Priority: Medium Current Visit: Yes Qualifiers: Diarrhea type: unspecified type Qualified Code(s): R19.7 - Diarrhea, unspecified (25) C. difficile diarrhea SNOMED Code(s): 3026260321271 Code(s): A04.72 - ENTEROCOLITIS D/T CLOSTRIDIUM DIFFICILE, NOT SPCF RECUR Status: Acute Priority: High Current Visit: Yes - Problem List Review Problem List Initiated/Reviewed/Updated: Yes - My Orders Last 24 Hours: My Active Orders 01/22/20 09:35 Blood Culture x2 Reflex Set [OM.PC] Stat 01/22/20 09:51 CULTURE BLOOD [BC] Stat 01/22/20 10:00 CULTURE BLOOD [BC] Stat 01/22/20 15:55 C DIFFICILE TOXIN IMMUNOASSAY [MREF] Routine - Assessment Assessment:: See plan - Plan Plan:: Severe joint pain secondary to RA flare up RA Fibromyalgia/chronic pain Chronic neuropathy Morbid obesity - BMI 73.6 Chronic hx of RA- currently receiving methotrexate 17.5 mg po weekly, folic acid supplementation. On multiple chronic pain and anti-inflammatory meds including oxycodone, cymbalta, fludrocortisone, and topical creams Given Solumedrol 125 mg IV x1 in the ED ESR remains elevated 113 (84 on admission and increasing) CRP 5.2 (8.2 on admission and decreasing) PLAN - 40mg daily prednisone - Message left her associate professor of art history Dr. Nas Hurtado - awaiting call back - Will adjust pain medications as patient reports taking oxycodone essentially scheduled and significant doses of Tylenol for breakthrough pain - Consult brim pouncer Positive blood culture Positive for gram positive bacteria on 1 of 4 bottles E.coli growing in urine as above No fevers, WBC elevated (likely 2/2 steroid) But trending down PLAN - Repeat BC today 01/22/20 from peripheral and port - Echo to r/o vegetation - Continue Rocephin pending repeat BC Urinary tract infection Recurrent UTIs Urinary retention/incontinence Hx of multiple and recurrent UTIs. Prior urine culture from 12/07/19 shows E.coli sensitive to meropenem On admission patient is found tachicardic, febrile and WBC 10.66 Reports self cath 5 x daily CXR negative for pneumonia 650 ml urine after straight cath and bladder scan Blood cultures negative Urine cultures showing e. coli with multiple sensitivities Procalcitonin 0.23, Lactic acid 0.9 PLAN - Switch from meropenem to Rocephin - continue Rocephin pending repeat BC - Continue see catheter Leukocytosis Anemia WBC trended up to 16.93 probably secondary to steroids vs UTI Hgb trending 11.5-->11.1-->10.5-->10.8-->9.74 Acute on chronic anemia PLAN - Continue abx IV as above - Monitor VS - Continue to monitor WBC - Anemia work-up Debilitating/Deconditioned Wheelchair bound status Wheelchair bound Patient lives by herself at home independently even though present condition. 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 Marmolejo at [facility] for wound care. PLAN - Continue daily wound care as per protocol - Consult PT wound care - Repeat procalcitonin today Hypertension Stable, BP 123/78 on admission. Today 140/70 PLAN -Hold home meds for now -Hydralazine IV PRN Restless leg syndrome PLAN - Continue home ropinirole C. Diff Diarrhea Reported severe loose stools on 01/22/20 Originally thought to be new onset however patient reports multiple bouts of loose stools over past weeks to months Takes significant amounts of Imodium at home On chronic ABX for frequent UTIs Reports history of severe rash to IV vancomycin Denies history of C. Diff; Reports has been tested in the past. Positive C. Diff PLAN - Oral vancomycin QID - Enteric Precautions - Discuss contamination concerns PROPHYLAXIX DVT- Lovenox 40 mg subcut q24h GI- not indicated CODE STATUS: Full Code DISPOSITION Patient is improving since admission but remains with moderate pain. Awaiting repeat BC. LOS >96hr pending repeat blood cultures. Starting vancomycin for C. Diff.
[2020-01-23] MEDS: Vancomycin 125 MG Cap PO SCH ×4 (08:20→20:48)
[2020-01-23] MEDS: Enoxaparin 40 MG/0.4 ML Syringe SUBCUT SCH (08:20)
[2020-01-23] MEDS: Fludrocortisone 0.1 MG Tab PO SCH (08:20)
[2020-01-23] MEDS: predniSONE 20 MG Tab PO SCH (08:20)
[2020-01-23] MEDS: Loratadine 10 MG Tab PO SCH (08:20)
[2020-01-23] MEDS: Folic Acid 1 MG Tab PO SCH (08:20)
[2020-01-23] MEDS ORDERED: Ferrous Sulfate 324 MG Tab.EC PO SCH (09:00)
[2020-01-23] MEDS: diphenhydrAMINE 50 MG/ML SDV IVPUSH PRN ×2 (12:11→23:18)
[2020-01-23] MEDS: cefTRIAXone 2 GM in Sodium Chloride 0.9% 100 ML IV SCH (14:48)
[2020-01-23] MEDS: DULoxetine 30 MG Cap PO SCH (16:19)
[2020-01-23] MEDS: rOPINIRole 0.25 MG Tab PO SCH (20:49)
[2020-01-23] MEDS: Morphine 15 MG Tab.ER PO SCH (20:52)
[2020-01-23] MEDS: traZODone 50 MG Tab PO SCH (23:03)
[2020-01-24] MEDS: Enoxaparin 40 MG/0.4 ML Syringe SUBCUT SCH (08:14)
[2020-01-24] MEDS: Vancomycin 125 MG Cap PO SCH ×2 (08:14→13:04)
[2020-01-24] MEDS: predniSONE 20 MG Tab PO SCH (08:15)
[2020-01-24] MEDS: Folic Acid 1 MG Tab PO SCH (08:15)
[2020-01-24] MEDS: Loratadine 10 MG Tab PO SCH (08:15)
[2020-01-24] MEDS: Fludrocortisone 0.1 MG Tab PO SCH (08:16)
[2020-01-24] MEDS: diphenhydrAMINE 50 MG/ML SDV IVPUSH PRN (08:32)
[2020-01-24] MEDS: Nystatin Topical Powder 15 GM Bottle TOP PRN (08:39)
[2020-01-24] MEDS: Acetaminophen/Codeine 300-30 MG Tab PO PRN (08:51)
[2020-01-24] MEDS: Ondansetron 4 MG/2 ML SDV IVPUSH PRN (10:08)
--- NOTE | 2020-01-24 10:33 | PCM.DCSUM1 ---
Discharge Summary - Hospital Course HPI Initial Comments: Patient is a pleasant 64 yo female, patient of Dr. Ji, with the past medical history HTN, RA, frequent UTIs, fibromyalgia, non-pressure chronic ulcers, urinary retention/incontinence, GERD, restless leg syndrome, chronic renal failure, and PVD who comes to ED via EMS due to severe pain in her joints , primarily the right shoulder. Patient reports moving some boxes at yesterday afternoon and around 3 pm she developed sudden severe joint pain and has not been able to move at all. She is wheelchair bound but lives by herself and independently. She denies any GARNETT, dizziness, lightheadedness, fever or chills, SOB, CP or palpitations, abdominal pain, N/V, dysuria, diarrhea or constipation. Patient reports she self-cath 5 times daily but ED RN reports patient was able to void on her own with no issues. In the ED, patient was found in moderate to severe distress due to pain. Initial work up reveals elevated ESR and CRP. Patient was also found with positive nitrite and urine WBC , leukocytosis with left shit. Her initial vital signs reveal fever of 100.1 F and tachycardia HR 92. In the ED, patient received Solumedrol 125 mg IV x1 which did improved her pain but not significantly. Therefore, hospitalist service was contacted to admit patient for further care of severe joint pain secondary to RA exacerbation, leukocytosis, UTI, and debilitating/deconditioned status. Diagnosis: Stroke: No - Discharge Data Discharge Date: 01/24/20 (Admit date: 01/19/20) Discharge Disposition: Home, Self-Care 01 Condition: Stable - Referral to Home Health Primary Care Physician: Shabnam Ji MD - Discharge Diagnosis/Problem(s) (1) Arthralgia SNOMED Code(s): 75262588 ICD Code: M25.50 - PAIN IN UNSPECIFIED JOINT Status: Acute Priority: High Current Visit: Yes Qualifiers: Joint pain location: unspecified Qualified Code(s): M25.50 - Pain in unspecified joint (2) Rheumatoid arthritis flare SNOMED Code(s): 321509950 ICD Code: M06.9 - RHEUMATOID ARTHRITIS, UNSPECIFIED Status: Acute Priority: High Current Visit: Yes (3) UTI (urinary tract infection) SNOMED Code(s): 14817634 ICD Code: N39.0 - URINARY TRACT INFECTION, SITE NOT SPECIFIED Status: Acute Priority: High Current Visit: Yes Qualifiers: Urinary tract infection type: site unspecified Hematuria presence: without hematuria Qualified Code(s): N39.0 - Urinary tract infection, site not specified (4) Ulcers of both lower extremities SNOMED Code(s): 25980833 ICD Code: L97.919 - NON-PRS CHRONIC ULC UNSP PRT OF R LOW LEG W UNSP SEVERITY ; L97.929 - NON-PRS CHRONIC ULC UNSP PRT OF L LOW LEG W UNSP SEVERITY Status: Chronic Priority: High Current Visit: Yes Qualifiers: Non-pressure ulcer stage: unspecified non-pressure ulcer stage Qualified Code(s): L97.919 - Non-pressure chronic ulcer of unspecified part of right lower leg with unspecified severity; L97.929 - Non-pressure chronic ulcer of unspecified part of left lower leg with unspecified severity (5) Hypocalcemia SNOMED Code(s): 8853297 ICD Code: E83.51 - HYPOCALCEMIA Status: Chronic Priority: Medium Current Visit: No (6) PVD (peripheral vascular disease) SNOMED Code(s): 724230617 ICD Code: I73.9 - PERIPHERAL VASCULAR DISEASE, UNSPECIFIED Status: Chronic Priority: Medium Current Visit: No (7) Recurrent UTI SNOMED Code(s): 920666041 ICD Code: N39.0 - URINARY TRACT INFECTION, SITE NOT SPECIFIED Status: Chronic Priority: Medium Current Visit: Yes (8) GERD (gastroesophageal reflux disease) SNOMED Code(s): 192140692 ICD Code: K21.9 - GASTRO-ESOPHAGEAL REFLUX DISEASE WITHOUT ESOPHAGITIS Status: Chronic Priority: Low Current Visit: No Qualifiers: Esophagitis presence: esophagitis presence not specified Qualified Code(s) : K21.9 - Gastro-esophageal reflux disease without esophagitis (9) Urinary incontinence SNOMED Code(s): 573238281 ICD Code: R32 - UNSPECIFIED URINARY INCONTINENCE Status: Chronic Priority : Medium Current Visit: Yes Qualifiers: Urinary Incontinence type: unspecified incontinence Qualified Code(s): R32 - Unspecified urinary incontinence (10) Urinary retention SNOMED Code(s): 642610644 ICD Code: R33.9 - RETENTION OF URINE, UNSPECIFIED Status: Acute Priority : High Current Visit: Yes (11) Fibromyalgia SNOMED Code(s): 795606184 ICD Code: M79.7 - FIBROMYALGIA Status: Chronic Priority: Medium Current Visit: Yes (12) Peripheral neuropathy SNOMED Code(s): 768751147 ICD Code: G62.9 - POLYNEUROPATHY, UNSPECIFIED Status: Chronic Priority: Medium Current Visit: Yes Qualifiers: Peripheral neuropathy type: polyneuropathy, unspecified Qualified Code(s): G62.9 - Polyneuropathy, unspecified (13) RLS (restless legs syndrome) SNOMED Code(s): 79921280 ICD Code: G25.81 - RESTLESS LEGS SYNDROME Status: Chronic Current Visit: Yes (14) Type II diabetes mellitus SNOMED Code(s): 47583895 ICD Code: E11.9 - TYPE 2 DIABETES MELLITUS WITHOUT COMPLICATIONS Status: Chronic Priority: Medium Current Visit: Yes Qualifiers: Diabetes mellitus intermediate card tender insulin use: unspecified mcfp insulin use status Diabetes mellitus complication status: with other specified complication Qualified Code(s): E11.69 - Type 2 diabetes mellitus with other specified complication (15) Morbid obesity SNOMED Code(s): 446221070 ICD Code: E66.01 - MORBID (SEVERE) OBESITY DUE TO EXCESS CALORIES Status: Chronic Priority: High Current Visit: Yes (16) Physical deconditioning SNOMED Code(s): 48782417839307 ICD Code: R53.81 - OTHER MALAISE Status: Chronic Priority: High Current Visit: Yes (17) Leukocytosis SNOMED Code(s): 971448695, 289560653 ICD Code: D72.829 - ELEVATED WHITE BLOOD CELL COUNT, UNSPECIFIED Status: Acute Priority: High Current Visit: Yes Qualifiers: Leukocytosis type: unspecified Qualified Code(s): D72.829 - Elevated white blood cell count, unspecified (18) Rheumatoid arthritis SNOMED Code(s): 01080466 ICD Code: M06.9 - RHEUMATOID ARTHRITIS, UNSPECIFIED Status: Acute Priority: High Current Visit: Yes Qualifiers: Rheumatoid arthritis location: multiple sites Rheumatoid factor presence: unspecified presence Qualified Code(s): M06.9 - Rheumatoid arthritis, unspecified (19) Wheelchair confinement status SNOMED Code(s): 047177476, 758509123 ICD Code: Z99.3 - DEPENDENCE ON WHEELCHAIR Status: Chronic Priority: High Current Visit: Yes (20) Decubital ulcer SNOMED Code(s): 934496753 ICD Code: L89.90 - PRESSURE ULCER OF UNSPECIFIED SITE, UNSPECIFIED STAGE Status: Chronic Priority: Medium Current Visit: Yes Qualifiers: Pressure injury location: buttock Pressure injury stage: unspecified pressure injury stage Laterality: unspecified laterality Qualified Code(s): L89.309 - Pressure ulcer of unspecified buttock, unspecified stage (21) History of MRSA infection SNOMED Code(s): 743405781, 572010017 ICD Code: Z86.14 - PERSONAL HISTORY OF METHICILLIN RESIS STAPH INFECTION Status: Acute Priority: High Current Visit: Yes (22) Anemia SNOMED Code(s): 626711166 ICD Code: D64.9 - ANEMIA, UNSPECIFIED Status: Acute Priority: High Current Visit: Yes Qualifiers: Anemia type: other cause Other causes of anemia: other cause, not classified Qualified Code(s): D64.89 - Other specified anemias (23) Positive blood culture SNOMED Code(s): 137177396 ICD Code: R78.81 - BACTEREMIA Status: Acute Priority: High Current Visit: Yes (24) Diarrhea SNOMED Code(s): 49105870 ICD Code: R19.7 - DIARRHEA, UNSPECIFIED Status: Acute Priority: Medium Current Visit: Yes Qualifiers: Diarrhea type: unspecified type Qualified Code(s): R19.7 - Diarrhea, unspecified (25) C. difficile diarrhea SNOMED Code(s): 2901799285084 ICD Code: A04.72 - ENTEROCOLITIS D/T CLOSTRIDIUM DIFFICILE, NOT SPCF RECUR Status: Acute Priority: High Current Visit: Yes - Patient Summary/Data Consults: Consultations 01/19/20 13:30 Consult to Case Management/Deputy Court [CONS] Routine OT Evaluation and Treatment [CONS] Routine PT Evaluation and Treatment [CONS] Routine 01/21/20 08:59 Consult to Blister Rust Eradicator [CONS] Routine 01/21/20 11:10 Consult to Physical Therapy [PT Evaluation and Treatment] [CONS] Routine Labs Pending at D/C: Repeat blood cultures negative thus far No other pending tests Recommended Follow-up Testing/Procedures: Follow-up with PCP within 7-10 days of discharge, sooner if needed. Follow-up with rheumatology at next available appointment. Hospital Course: Roseanne is well-known to this service, having been admitted prior for her bilateral leg wounds. On this admission she was noted to have a RA flareup. She was started on high-dose steroids and her pain regimen was adjusted. This greatly improved her symptoms. Attempt was made to contact her md psychiatry without success. She was also noted to have a UTI, sensitive to Rocephin. She received 6 days of IV biotics including meropenem and Rocephin. She will be discharged on 1 more full day of Omnicef. Blood cultures were obtained and initially showed a gram-positive bacteria result in 1 out of 4 bottles. These were peaked and have thus far been negative for 2 days. It is believe this is likely due to a contaminant. Procalcitonin was obtained on admission and was noted to be elevated. Does return to normal limits prior to discharge. While here patient noted that she has had ongoing significant diarrhea that tends to come and go. C. difficile was obtained and was positive. She was started on 4 times daily oral vancomycin. This will be continued for a total of 10 days of treatment. Prior to discharge her steroid was decreased to 40 mg p.o. prednisone daily. This will be continued for 3 more days and then she will begin a steroid taper of 30 mg for 5 days and 20 mg for 5 days. She should discuss this with her primary care provider at her follow-up appointment as she will likely need to decrease further, although she may need a longer duration of steroid. Her Florinef has been continued. She does have a history of chronic pain medication use and states that she has had multiple pain medications that no longer work for her. She has been using oxycodone regularly and supplementing with significantly high amounts of acetaminophen. We will change her to 45 mg daily MS Contin with supplemental Tylenol 3 as needed for breakthrough pain. She has had good control with this. She was advised to not take any of her remaining home meds and continue with our current regimen, as supplementing this could lead to overdose. She did see physical therapy and Occupational Therapy for strengthening and wound care. PT was recommending she continue wound care with them however she states that she has been doing herself for some time and has been refusing. She does follow-up at [facility] with Dr. Lozano, general surgeon, monthly for wound care visits. She was instructed to continue this. She was told that if she does change her mind and would like assistance with PT wound care she should talk to her primary care provider. Multiple home services already and social work/case management did follow to allow for resumption of the services. She did undergo debridement of her bilateral leg wounds while hospitalized. Home medications will be resumed with the exception of prior home pain medications. She was started on MS Contin and Tylenol 3 as mentioned prior. She will also be continued on steroid stepdown as mentioned and 1 more days dose of Omnicef. We will also continue her 4 times daily oral vancomycin, total of 10 days of treatment. She instructed to follow-up with her primary care provider within 7 to 10 days of discharge, or sooner if needed. Recommend recheck CBC, CMP, mag, and phosphorus at that visit. She will be discharged home today. She instructed to return to the emergency room or contact her primary care provider if symptoms return or worsen. - Patient Instructions Diet: Usual Diet as Tolerated Activity: As Tolerated Driving: Do Not Drive Showering/Bathing: May Shower Notify Provider of: Fever, Increased Pain, Swelling and Redness, Drainage, Nausea and/or Vomiting Other/Special Instructions: Follow-up with primary care provider within 7-10 days of discharge, sooner if needed. Recommend follow-up with rheumatology at next available appointment. Follow-up with woundcare as before. We continue to recommend home health PT for woundcare but you have been refushing this. Should you change your mind you can contact your primary care provider and then can help you arrange this. Take all new medicaitons as prescribed. Continue antibiotic until completed or directed otherwise by a medical provider. Resume home medications as directed. Continue home self-catheterization as before. Your pain medications were adjusted. STOP TAKING your prior pain medications and be sure to follow the directions with your new medications. Should symptoms return or worsen, contact your primary care provider or return to the Emergency Department. - Discharge Plan *PRESCRIPTION DRUG MONITORING PROGRAM REVIEWED*: No *COPY OF PRESCRIPTION DRUG MONITORING REPORT IN PATIENT KARLA: No Prescriptions/Med Rec: Acetaminophen/Codeine [Tylenol with Codeine No.3 300MG/30MG] 2 tab PO Q4H PRN # 40 tablet PRN Reason: Breakthrough Pain Cefdinir [Omnicef] 300 mg PO BID #3 cap Morphine [MS Contin] 45 mg PO Q24H #30 tab.er predniSONE [Prednisone] 10 mg PO ASDIRECTED #37 tablet Vancomycin 125 mg PO QID 9 Days #36 cap Home Medications: Home Meds Cholecalciferol (Vitamin D3) [Vitamin D3] 2,000 unit PO DAILY 05/13/18 [History] Lutein 40 mg PO DAILY 05/13/18 [History] Methenamine Hippurate [Hiprex] 1 gm PO BID 05/13/18 [History] traZODone HCl [Trazodone HCl] 50 mg PO BEDTIME 05/13/18 [History] Alfuzosin HCl [Alfuzosin HCl ER] 10 mg PO DAILY 12/06/19 [History] Ascorbic Acid 500 mg PO TID 12/06/19 [History] Calcium Carbonate 500 mg PO Q4HR PRN 12/06/19 [History] Calcium Carbonate/Vitamin D3 [Calcium Carbonate/Vitamin D 600 MG-200 Unit] 1 tab PO BID 12/06/19 [History] Cetirizine [ZyrTEC] 10 mg PO DAILY 12/06/19 [History] Cholestyramine/Sucrose [Cholestyramine] 4 g PO QAM 12/06/19 [History] Cranberry Fruit Concentrate [Cranberry] 450 mg PO BID 12/06/19 [History] Diclofenac/Hyaluronate/Niacin [Diclofen 3%-Hyaluron 2%-Niac4%] 2 gm TOP BID PRN 12/06/19 [History] Ferrous Sulfate 325 mg PO DAILY 12/06/19 [History] Folic Acid 1 mg PO DAILY 12/06/19 [History] Lycopene 10 mg PO DAILY 12/06/19 [History] Magnesium Oxide 400 mg PO BID 12/06/19 [History] Multivitamin [Multivitamins] 1 tab PO DAILY 12/06/19 [History] Ondansetron [Zofran ODT] 1 tab PO Q6HR PRN 12/06/19 [History] Pantoprazole Sodium [Protonix] 40 mg PO DAILY 12/06/19 [History] diphenhydrAMINE [Benadryl] 25 mg PO Q4HR PRN 12/06/19 [History] hydrOXYzine HCL [Hydroxyzine HCl] 10 mg PO TID 12/06/19 [History] metHOTREXate sodium [Methotrexate] 17.5 mg PO WEEKLY 12/06/19 [History] rOPINIRole [Requip] 0.5 mg PO BEDTIME 12/06/19 [History] Albuterol Sulfate [Proair Respiclick] 2 puff INH Q4H PRN 01/19/20 [History] DULoxetine [Cymbalta] 60 mg PO DAILY 01/19/20 [History] Fludrocortisone [Florinef] 0.1 mg PO DAILY 01/19/20 [History] Nystatin [Nyamyc] 1 applic TOP BID PRN 01/19/20 [History] Acetaminophen/Codeine [Tylenol with Codeine No.3 300MG/30MG] 2 tab PO Q4H PRN # 40 tablet 01/24/20 [Rx] Cefdinir [Omnicef] 300 mg PO BID #3 cap 01/24/20 [Rx] Morphine [MS Contin] 45 mg PO Q24H #30 tab.er 01/24/20 [Rx] Vancomycin 125 mg PO QID 9 Days #36 cap 01/24/20 [Rx] predniSONE [Prednisone] 10 mg PO ASDIRECTED #37 tablet 01/24/20 [Rx] Oxygen Therapy Mode: Room Air Patient Handouts: Sepsis, Diagnosis, Adult, Clostridioides Difficile Infection , Urinary Tract Infection, Adult Referrals: Shabnam Ji MD [Primary Care Provider] - 01/28/20 9:00 am (Obtain a referral to a urologist. please attend the scheduled follow up appointment with your primary care provider as listed) Vijay Marmolejo MD [Physician] - (Follow-up with Dr Marmolejo for wound care.) - Discharge Summary/Plan Comment DC Time >30 min.: Yes (45 mins ) - General Info Date of Service: 01/24/20 Admission Dx/Problem (Free Text: RA Flare, UTI Functional Status: Reports: Pain Controlled, Tolerating Diet, Ambulating, Urinating (see in place ). Denies: New Symptoms - Review of Systems General: Reports: No Symptoms. Denies: Fever, Weakness, Fatigue, Malaise, Chills HEENT: Reports: No Symptoms. Denies: Headaches, Sore Throat Pulmonary: Reports: No Symptoms. Denies: Shortness of Breath, Pleuritic Chest Pain, Cough, Sputum, Wheezing Cardiovascular: Reports: No Symptoms. Denies: Chest Pain, Palpitations Gastrointestinal: Reports: No Symptoms. Denies: Abdominal Pain, Constipation, Diarrhea, Nausea, Vomiting Genitourinary: Reports: No Symptoms. Denies: Pain Musculoskeletal: Reports: Joint Pain (improved ), Other (General myalgias ) Skin: Reports: No Symptoms. Denies: Cyanosis Neurological: Reports: No Symptoms. Denies: Confusion Psychiatric: Reports: No Symptoms - Patient Data Vitals - Most Recent: Last Vital Signs Temp 98.1 F 01/24/20 07:36 Pulse 61 01/24/20 07:36 Resp 16 01/24/20 07:36 BP 122/72 01/24/20 07:36 Pulse Ox 98 01/24/20 07:36 Weight - Most Recent: 202 lb 1.6 oz I&O - Last 24 hours: Intake & Output 01/23/20 01/24/20 01/24/20 22:59 06:59 14:59 Intake Total 1680 650 180 Output Total 450 650 Balance 1230 0 180 KENAN Results - Last 24 hrs: Microbiology 01/22/20 10:00 Aerobic Blood Culture - Preliminary Blood - Venous - Lab Draw NO GROWTH AFTER 2 DAYS Anaerobic Blood Culture - Preliminary NO GROWTH AFTER 2 DAYS 01/22/20 09:51 Aerobic Blood Culture - Preliminary Blood - Venous NO GROWTH AFTER 2 DAYS Anaerobic Blood Culture - Preliminary NO GROWTH AFTER 2 DAYS 01/19/20 09:39 Aerobic Blood Culture - Preliminary Blood - Venous - Lab Draw NO GROWTH AFTER 5 DAYS Anaerobic Blood Culture - Preliminary NO GROWTH AFTER 5 DAYS 01/19/20 09:28 Aerobic Blood Culture - Preliminary Blood - Venous Gram Positive Rods Anaerobic Blood Culture - Preliminary NO GROWTH AFTER 5 DAYS 01/22/20 15:55 Clostridioides difficile Toxin Assay - Final Stool / Feces Med Orders - Current: Current Medications Acetaminophen (Tylenol) 650 mg PO Q6H PRN PRN Reason: Pain (Mild 1-3) or Fever Last Admin: 01/22/20 05:48 Dose: 650 mg Acetaminophen/Codeine Phosphate (Tylenol With Codeine No.3 300mg/30mg) 2 tab PO Q4H PRN PRN Reason: Breakthrough Pain Last Admin: 01/24/20 08:51 Dose: 2 tab Diphenhydramine HCl (Benadryl) 25 mg IVPUSH Q4H PRN PRN Reason: Restlessness or Allergies Last Admin: 01/24/20 08:32 Dose: 25 mg Duloxetine HCl (Cymbalta) 60 mg PO DAILY@1700 CARLO Last Admin: 01/23/20 16:19 Dose: 60 mg Enoxaparin Sodium (Lovenox) 40 mg SUBCUT DAILY [facility] Last Admin: 01/24/20 08:14 Dose: 40 mg Ferrous Sulfate (Ferrous Sulfate) 324 mg PO Q48H [facility] Last Admin: 01/23/20 08:20 Dose: 324 mg Fludrocortisone Acetate (Florinef) 0.1 mg PO DAILY [facility] Last Admin: 01/24/20 08:16 Dose: 0.1 mg Folic Acid (Folic Acid) 1 mg PO DAILY [facility] Last Admin: 01/24/20 08:15 Dose: 1 mg Hydralazine HCl (Apresoline) 10 mg IVPUSH Q6H PRN PRN Reason: Hypertension Ceftriaxone Sodium 2 gm/ (Sodium Chloride) 100 mls @ 200 mls/hr IV Q24H [facility] Stop: 01/25/20 16:00 Last Admin: 01/23/20 14:48 Dose: 200 mls/hr Loratadine (Claritin) 10 mg PO DAILY [facility] Last Admin: 01/24/20 08:15 Dose: 10 mg Morphine Sulfate (Ms Contin) 45 mg PO Q24H [facility] Last Admin: 01/23/20 20:52 Dose: 45 mg Nystatin (Nystop) 0 gm TOP BID PRN PRN Reason: Itching Last Admin: 01/24/20 08:39 Dose: 1 applic Ondansetron HCl (Zofran) 4 mg IVPUSH Q4H PRN PRN Reason: Nausea and Vomiting Last Admin: 01/24/20 10:08 Dose: 4 mg Prednisone (Prednisone) 40 mg PO DAILY [facility] Last Admin: 01/24/20 08:15 Dose: 40 mg Ropinirole HCl (Requip) 0.5 mg PO BEDTIME [facility] Last Admin: 01/23/20 20:49 Dose: 0.5 mg Trazodone HCl (Trazodone) 50 mg PO BEDTIME [facility] Last Admin: 01/23/20 23:03 Dose: 50 mg Vancomycin HCl (Vancomycin) 125 mg PO QID [facility] Last Admin: 01/24/20 08:14 Dose: 125 mg Discontinued Medications Acetaminophen (Tylenol) 975 mg PO NOW ONE Stop: 01/19/20 12:25 Last Admin: 01/19/20 12:45 Dose: 975 mg Acetaminophen (Tylenol) 650 mg RECTAL Q6H PRN PRN Reason: Pain (Mild 1-3) or Fever Acetaminophen/Codeine Phosphate (Tylenol With Codeine No.3 300mg/30mg) 1 tab PO Q6H PRN PRN Reason: Breakthrough Pain Last Admin: 01/22/20 12:07 Dose: 1 tab Hydrocodone Bitart/Acetaminophen (Allen 325-5 Mg) 1 tab PO Q6H PRN PRN Reason: Pain (moderate 4-6) Last Admin: 01/21/20 09:03 Dose: 1 tab Duloxetine HCl (Cymbalta) 60 mg PO DAILY [facility] Last Admin: 01/20/20 09:56 Dose: Not Given Ferrous Sulfate (Ferrous Sulfate) 324 mg PO DAILY [facility] Last Admin: 01/21/20 09:05 Dose: 324 mg Meropenem 1 gm/ Sodium (Chloride) 100 mls @ 200 mls/hr IV Q8H [facility] Last Admin: 01/19/20 13:44 Dose: 200 mls/hr Sodium Chloride (Normal Saline) 1,000 mls @ 75 mls/hr IV ASDIRECTED [facility] Last Admin: 01/20/20 04:19 Dose: 75 mls/hr Meropenem/Sodium Chloride 500 (mg/ Premix) 50 mls @ 100 mls/hr IV Q6H [facility] Last Admin: 01/21/20 09:07 Dose: 100 mls/hr Methylprednisolone Sodium Succinate (Solu-Medrol) 125 mg IVPUSH ONETIME ONE Stop: 01/19/20 09:07 Last Admin: 01/19/20 09:29 Dose: 125 mg Methylprednisolone Sodium Succinate (Solu-Medrol) 80 mg IVPUSH Q8H [facility] Last Admin: 01/19/20 15:23 Dose: Not Given Methylprednisolone Sodium Succinate (Solu-Medrol) 125 mg IVPUSH Q4H [facility] Stop: 01/22/20 09:01 Last Admin: 01/22/20 08:28 Dose: 125 mg Morphine Sulfate (Morphine) 2 mg IVPUSH Q4H PRN PRN Reason: Pain (severe 7-10) Morphine Sulfate (Morphine) 2 mg IVPUSH ONETIME ONE Stop: 01/21/20 14:20 Last Admin: 01/21/20 14:33 Dose: 2 mg Non-Formulary Medication (Cetirizine) 10 mg PO DAILY [facility] Non-Formulary Medication (Diclofenac/Hyaluronate/Niacin [Diclofen 3%-Hyaluron 2% -Niac4%]) 2 gm TOP BID PRN PRN Reason: Pain Non-Formulary Medication (Duloxetine) 60 mg PO DAILY [facility] Non-Formulary Medication (Lutein [Lutein]) 40 mg PO DAILY [facility] Non-Formulary Medication (Lycopene [Lycopene]) 10 mg PO DAILY [facility] Non-Formulary Medication (Ropinirole) 0.5 mg PO BEDTIME [facility] Oxycodone HCl (Oxycodone) 7.5 mg PO Q6H PRN PRN Reason: Pain Last Admin: 01/21/20 14:12 Dose: 7.5 mg Senna/Docusate Sodium (Senna Plus) 2 tab PO BID CARLO Last Admin: 01/21/20 09:05 Dose: 2 tab - Exam Quality Assessment: Reports: Skin Breakdown General: Reports: Alert, Oriented, Cooperative, No Acute Distress HEENT: Reports: Pupils Equal, Pupils Reactive Neck: Reports: Supple, Trachea Midline Lungs: Reports: Clear to Auscultation, Normal Respiratory Effort Cardiovascular: Reports: Regular Rate, Regular Rhythm GI/Abdominal Exam: Normal Bowel Sounds, Soft, Non-Tender, No Organomegaly (Female) Exam: Deferred Rectal (Female) Exam: Deferred Back Exam: Reports: Normal Inspection, Full Range of Motion Extremities: Other (Bilateral lower extremity wounds which are bandaged. ). No : Increased Warmth Skin: Reports: Warm, Intact Wound/Incisions: Reports: Healing Well, Dressing Dry and Intact, No Drainage, Other (Bilateral leg wounds look much better since debriedment. ). Denies: Erythema Neurological: Reports: No New Focal Deficit Psy/Mental Status: Reports: Alert, Normal Affect, Normal Mood
== END 2020-01-24 14:00 | disposition home or self-care (01) | DRG 546 ==
LOC: JD.ED 08:37 → JD.MS 13:09 → UNDOADMIN 13:09
PROVIDERS: ADMIT Internal Medicine; ATTEND Internal Medicine
DX: M06.9 Rheumatoid arthritis, unspecified (principal); N39.0 Urinary tract infection, site not specified; L97.919 Non-pressure chronic ulcer of unspecified part of right lower leg with unspecified severity; L97.929 Non-pressure chronic ulcer of unspecified part of left lower leg with unspecified severity; M25.50 Pain in unspecified joint; A04.72 Enterocolitis due to Clostridium difficile, not specified as recurrent; H54.7 Unspecified visual loss; I73.9 Peripheral vascular disease, unspecified; I10 Essential (primary) hypertension; Z68.45 Body mass index [BMI] 70 or greater, adult; E83.51 Hypocalcemia; E11.622 Type 2 diabetes mellitus with other skin ulcer; K21.9 Gastro-esophageal reflux disease without esophagitis; B96.20 Unspecified Escherichia coli [E. coli] as the cause of diseases classified elsewhere; Z88.6 Allergy status to analgesic agent; I12.9 Hypertensive chronic kidney disease with stage 1 through stage 4 chronic kidney disease, or unspecified chronic kidney disease; E11.22 Type 2 diabetes mellitus with diabetic chronic kidney disease; Z91.011 Allergy to milk products; N18.9 Chronic kidney disease, unspecified; M79.7 Fibromyalgia; Z91.018 Allergy to other foods; Z91.048 Other nonmedicinal substance allergy status; G25.81 Restless legs syndrome; E11.42 Type 2 diabetes mellitus with diabetic polyneuropathy; E11.51 Type 2 diabetes mellitus with diabetic peripheral angiopathy without gangrene; E66.01 Morbid (severe) obesity due to excess calories; R53.81 Other malaise; L89.309 Pressure ulcer of unspecified buttock, unspecified stage; D64.89 Other specified anemias; Z99.3 Dependence on wheelchair; Z86.14 Personal history of Methicillin resistant Staphylococcus aureus infection; Z88.1 Allergy status to other antibiotic agents; Z91.040 Latex allergy status; Z88.8 Allergy status to other drugs, medicaments and biological substances; Z88.2 Allergy status to sulfonamides; Z79.899 Other long term (current) drug therapy
CPT/HCPCS: 36415; 51701; 51702; 51798; 71045; 71045-26; 80048; 80053; 81001; 82306; 82607; 82746; 83540; 83605; 83735; 84100; 84134; 84145; 84466; 85025; 85652; 86140; 87040; 87086; 87088; 87186; 87324; 87493; 93005; 93306; 96374; 97110-GP; 97161-GP; 97162-GP; 97165-GO; 97530-GO; 97530-GP; 97597-GP; 99284-25; 99285; A9270-GY; J0696; J1200; J1642; J1650; J2185; J2270; J2405; J2930; J7030; J7050; J7512

== ENCOUNTER 2020-04-24 14:43 | Emergency (ER) | payer MEDICARE, MEDICAID | END 2020-04-24 19:41 | LOC: JD.ED 14:43 | DX: Z53.21 Procedure and treatment not carried out due to patient leaving prior to being seen by health care provider (principal) ==

== ENCOUNTER 2020-07-12 17:13 | Emergency (ER) | payer MEDICARE, MEDICAID ==
--- NOTE | 2020-07-12 17:57 | EDM.PDOC ---
ED HPI GENERAL MEDICAL PROBLEM - General Chief Complaint: General Stated Complaint: PAIN IN BOTH FEET Time Seen by Provider: 07/12/20 17:33 Source of Information: Reports: Patient, RN Notes Reviewed History Limitations: Reports: No Limitations - History of Present Illness INITIAL COMMENTS - FREE TEXT/NARRATIVE: Is a 65-year-old female presenting to the emergency department with complaints of bilateral foot pain. Patient has a long history of numerous chronic pain conditions including rheumatoid arthritis, RA, peripheral neuropathy, and most recently leukocytoclastic vasculitis. She has chronic wound ulcers on both of her feet. She saw her primary care provider, Dr. Almanzar yesterday for these. She provided a copy of her discharge instructions to the triage nurse. She was started on prednisone yesterday. Complete blood work was completed in the clinic which she states was found to be normal. She has a follow-up appointment scheduled with Dr. Tyler Eid, general surgeon, on July 23. She also has home health wound care nurses coming to do dressing changes during the week. They are scheduled to come to her house again on Tuesday. Patient states that when she was in the clinic yesterday, she mentioned to Dr. Vines that she was out of her cassettes for pain. She takes these in addition to MS Contin. She states she takes 2 Percocet every 6 hours daily in addition to her MS Contin 1 tab twice a day. She states that Dr. Almanzar wrote her prescription for more Percocet, however her pharmacy refused to fill it. She only has enough pain medication to get her through today and then she will be out. She denies any recent fever, chills, nausea, vomiting. She states that they do not plan to do surgery to treat the ulcers but that they are trying to get them to heal on their own. Bilateral Leg Pain Score (Numeric/FACES): 10 - Related Data Allergies Allergy/AdvReac Type Severity Reaction Status Date / Time adhesive Allergy Intermediate Rash Verified 07/12/20 18:18 alginic acid Allergy Intermediate Rash Verified 07/12/20 18:18 [facility] amikacin Allergy Intermediate Hives Verified 07/12/20 18:18 cefazolin Allergy Intermediate Hives Verified 07/12/20 18:18 clindamycin Allergy Intermediate Rash Verified 07/12/20 18:18 honey Allergy Intermediate Rash Verified 07/12/20 18:18 [From [facility] (onesimo alginate-honey)] latex Allergy Intermediate Hives Verified 07/12/20 18:18 NSAIDS (Non-Steroidal Allergy Intermediate Rash Verified 07/12/20 18:18 Anti-Inflamma penicillamine Allergy Intermediate Blisters Verified 07/12/20 18:18 [From Cuprimine] vancomycin Allergy Intermediate Rash Verified 07/12/20 18:18 warfarin [From Coumadin] Allergy Intermediate Itching Verified 07/12/20 18:18 cyclobenzaprine Allergy Mild Cannot Verified 07/12/20 18:18 Remember hydroxychloroquine Allergy Mild Other Verified 07/12/20 18:18 [From Plaquenil] daptomycin AdvReac Intermediate Muscle Verified 07/12/20 18:18 Weakness green pepper AdvReac Intermediate Diarrhea Verified 07/12/20 18:18 lactose AdvReac Intermediate Diarrhea Verified 07/12/20 18:18 pentoxifylline [From Trental] AdvReac Mild Nausea and Verified 07/12/20 18:18 Vomiting sulfamethoxazole AdvReac Mild Nausea and Verified 07/12/20 18:18 [From Septra] Vomiting trimethoprim [From Septra] AdvReac Mild Nausea and Verified 07/12/20 18:18 Vomiting Home Meds: Home Meds Cholecalciferol (Vitamin D3) [Vitamin D3] 2,000 unit PO DAILY 05/13/18 [History] Lutein 40 mg PO DAILY 05/13/18 [History] Methenamine Hippurate [Hiprex] 1 gm PO BID 05/13/18 [History] traZODone HCl [Trazodone HCl] 50 mg PO BEDTIME 05/13/18 [History] Alfuzosin HCl [Alfuzosin HCl ER] 10 mg PO DAILY 12/06/19 [History] Ascorbic Acid 500 mg PO TID 12/06/19 [History] Calcium Carbonate 500 mg PO Q4HR PRN 12/06/19 [History] Calcium Carbonate/Vitamin D3 [Calcium Carbonate/Vitamin D 600 MG-200 Unit] 1 tab PO BID 12/06/19 [History] Cetirizine [ZyrTEC] 10 mg PO DAILY 12/06/19 [History] Cholestyramine/Sucrose [Cholestyramine] 4 g PO QAM 12/06/19 [History] Cranberry Fruit Concentrate [Cranberry] 450 mg PO BID 12/06/19 [History] Diclofenac/Hyaluronate/Niacin [Diclofen 3%-Hyaluron 2%-Niac4%] 2 gm TOP BID PRN 12/06/19 [History] Ferrous Sulfate 325 mg PO DAILY 12/06/19 [History] Folic Acid 1 mg PO DAILY 12/06/19 [History] Lycopene 10 mg PO DAILY 12/06/19 [History] Magnesium Oxide 400 mg PO BID 12/06/19 [History] Multivitamin [Multivitamins] 1 tab PO DAILY 12/06/19 [History] Ondansetron [Zofran ODT] 1 tab PO Q6HR PRN 12/06/19 [History] Pantoprazole Sodium [Protonix] 40 mg PO DAILY 12/06/19 [History] diphenhydrAMINE [Benadryl] 25 mg PO Q4HR PRN 12/06/19 [History] hydrOXYzine HCL [Hydroxyzine HCl] 10 mg PO TID 12/06/19 [History] metHOTREXate sodium [Methotrexate] 17.5 mg PO WEEKLY 12/06/19 [History] rOPINIRole [Requip] 0.5 mg PO BEDTIME 12/06/19 [History] Albuterol Sulfate [Proair Respiclick] 2 puff INH Q4H PRN 01/19/20 [History] DULoxetine [Cymbalta] 60 mg PO DAILY 01/19/20 [History] Fludrocortisone [Florinef] 0.1 mg PO DAILY 01/19/20 [History] Nystatin [Nyamyc] 1 applic TOP BID PRN 01/19/20 [History] Morphine [MS Contin] 45 mg PO Q24H #30 tab.er 01/24/20 [Rx] Vancomycin [Vancocin 125 MG Capsule] 125 mg PO QID 9 Days #36 cap 01/24/20 [Rx] predniSONE [Prednisone] 10 mg PO ASDIRECTED #37 tablet 01/24/20 [Rx] oxyCODONE HCl/Acetaminophen [Endocet 7.5-325 mg Tablet] 2 each PO Q6H PRN #12 ta blet 07/12/20 [Rx] Past Medical History HEENT History: Reports: Other (See Below) Other HEENT History: wears glasses Cardiovascular History: Reports: Hypertension, PVD Other Cardiovascular History: pt states no hx of HTN Gastrointestinal History: Reports: GERD Genitourinary History: Reports: Renal Disease, Urinary Incontinence, UTI, Recurrent Musculoskeletal History: Reports: Fibromyalgia, RA, Other (See Below) Other Musculoskeletal History: broke both of knees, broke four ribs, 3 hip replacements, broke pelvic bone, broke left hand, broke collar bone, bunyonectomy bilateral feet Neurological History: Reports: Neuropathy, Peripheral, Other (See Below) Other Neuro History: restless leg syndrom Endocrine/Metabolic History: Reports: Diabetes, Type II Hematologic History: Reports: Folic Acid Dermatologic History: Reports: Other (See Below) Other Dermatologic History: ulcers to bilateral legs - Infectious Disease History Infectious Disease History: Reports: Chicken Pox, Measles, MRSA, Other (See Below) Other Infectious Disease History: pt states hx of mrsa in feet in 1985 and 2014 - Past Surgical History GI Surgical History: Reports: None Social & Family History - Family History Family Medical History: Noncontributory - Caffeine Use Caffeine Use: Reports: Coffee ED ROS GENERAL - Review of Systems Review Of Systems: See Below Constitutional: Reports: No Symptoms. Denies: Fever, Chills HEENT: Reports: No Symptoms Respiratory: Reports: No Symptoms. Denies: Shortness of Breath, Cough Cardiovascular: Reports: No Symptoms Endocrine: Reports: No Symptoms GI/Abdominal: Reports: No Symptoms. Denies: Nausea, Vomiting : Reports: No Symptoms Musculoskeletal: Reports: Other (bilateral foot ulcers and pain) ED EXAM, GENERAL - Physical Exam Exam: See Below General Appearance: Alert, WD/WN, No Apparent Distress Respiratory/Chest: No Respiratory Distress, Lungs Clear, Normal Breath Sounds, No Accessory Muscle Use, Chest Non-Tender Cardiovascular: Normal Peripheral Pulses, Regular Rate, Rhythm, No Edema, No Gallop, No JVD, No Murmur, No Rub Skin Exam: Other (Examination of ulcers to feet was deferred as patient just had her dressing change done yesterday. ) Course - Vital Signs Last Recorded V/S: Last Vital Signs Temp 97.1 F 07/12/20 17:21 Pulse 98 07/12/20 17:21 Resp 14 07/12/20 17:21 BP 147/90 H 07/12/20 17:21 Pulse Ox 95 07/12/20 17:21 - Re-Assessments/Exams Free Text/Narrative Re-Assessment/Exam: 07/12/20 17:54 Patient is a 65-year-old female presenting to the emergency department with request of obtaining a refill on her pain medications. She saw her primary care provider, Dr. Almanzar yesterday for her chronic skin ulcers to her feet. She was started on prednisone. States that he provided her with a prescription for Percocet, however her pharmacy refused to fill it. Did provide a copy of her plan of care instructions sent home with her from Dr. Marcus's office. Documentation shows that his CBC, CMP, TSH, chest x-ray were completed.. She states these were found to be normal. He documents that he is treating skin ulcers under diagnosis of leukocytoclastic vasculitis. Dressings are intact to her feet at this current time. Her wound care nurse comes on Tuesday to change the dressings. She states that the ulcers have been chronic and that there have been no recent changes. Based on this, will defer examination of the ulcers as disrupted the dressings. On review of the COMPLAINT EVALUATION SUPERVISOR, patient had a refill on her Percocets on 19 June with 180 tablets being dispensed. If she is using them 2 tablets every 6 hours daily, he would have ran out of the medication a few days ago. She states that she has enough to get her through today but will be out after today. Discussed with her that the likely problem is that the dose and frequency listed on the prescription from Dr. Almanzar differs from the amount she is actually taking. I will write a prescription for 12 of these tablets to get her through till she can contact Dr. Almanzar on Tuesday, however I did discuss that I cannot guarantee that the pharmacy will be willing to fill them. He is in agreement with this. We will discharge her home with instructions to follow-up with Dr. Berg and keep her appointments with her wound care nurse as scheduled. Discharge instructions as documented. 07/12/20 18:27 We were notified that patient is unable to get a ride to [place] [facility] and [facility] because public transit is closing. Prescription to [place] pharmacy has been canceled. I did send a prescription to [facility] as they are the only pharmacy open tomorrow from noon to 4. Departure - Departure Time of Disposition: 17:58 Disposition: Home, Self-Care 01 Condition: Good Clinical Impression: Leukocytoclastic vasculitis Chronic pain Qualifiers: Chronic pain type: other chronic pain Qualified Code(s): G89.29 - Other chronic pain - Discharge Information *PRESCRIPTION DRUG MONITORING PROGRAM REVIEWED*: Yes *COPY OF PRESCRIPTION DRUG MONITORING REPORT IN PATIENT KARLA: No Prescriptions: oxyCODONE HCl/Acetaminophen [Endocet 7.5-325 mg Tablet] 2 each PO Q6H PRN #12 tablet PRN Reason: Pain (Severe 7-10) Instructions: Vasculitis, Opioid Pain Medicine Management, Pain Medicine Instructions, [id number] Referrals: Phyllis Montalvo NP [Primary Care Provider] - Bobby Almanzar MD [Physician] - Forms: ED Department Discharge Additional Instructions: You were seen in the emergency department today for pain to your bilateral feet due to chronic ulcers of your feet. You verbalized that you will be out of your Percocet pain medication tomorrow. As we discussed, in the emergency department, we generally do not send prescriptions for chronic pain medications, however, I have sent a prescription for enough medication to get you through to you can contact your primary care provider on Tuesday. A prescription for Percocet 12 tablets has been sent to [place] pharmacy in [facility]. Use this only as prescribed. Call your primary care provider, Dr. Almanzar, or Domonique Montalvo NP first thing Tuesday to discuss ongoing management of your pain. Return to the ER as needed. Sepsis Event Note (ED) - Evaluation Sepsis Screening Result: No Definite Risk
== END 2020-07-12 18:14 | disposition home or self-care (01) ==
LOC: JD.ED 17:13
DX: L95.9 Vasculitis limited to the skin, unspecified (principal); E11.621 Type 2 diabetes mellitus with foot ulcer; I10 Essential (primary) hypertension; E11.51 Type 2 diabetes mellitus with diabetic peripheral angiopathy without gangrene; E11.42 Type 2 diabetes mellitus with diabetic polyneuropathy; Z91.09 Other allergy status, other than to drugs and biological substances; Z88.1 Allergy status to other antibiotic agents; Z91.018 Allergy to other foods; Z88.2 Allergy status to sulfonamides; Z88.8 Allergy status to other drugs, medicaments and biological substances; Z91.040 Latex allergy status; Z79.899 Other long term (current) drug therapy
CPT/HCPCS: 99283

== ENCOUNTER 2020-08-06 22:41 | Emergency (ER) | payer MEDICARE, MEDICAID ==
--- NOTE | 2020-08-07 01:17 | EDM.PDOC ---
ED HPI GENERAL MEDICAL PROBLEM - General Chief Complaint: Upper Extremity Injury/Pain Stated Complaint: [facility] Time Seen by Provider: 08/07/20 01:07 - History of Present Illness INITIAL COMMENTS - FREE TEXT/NARRATIVE: 65-year-old female presents the emergency room brought in by [facility] with left arm swelling. Patient is left arm swelling there is painless but remarkably swollen. The patient has significant shoulder immobilization due to rotator cuff injury and does not do a lot with this arm. The patient is on Remicade for stasis dermatitis that is severe in her lower extremities. The patient has developed the swelling over the last several days that she is noticed at. The patient has had several episodes of this in the past and the cause is never really been identified. Patient denies pain in the area or in the arm. Left Arm Pain Score (Numeric/FACES): 5 - Related Data Allergies Allergy/AdvReac Type Severity Reaction Status Date / Time adhesive Allergy Intermediate Rash Verified 08/07/20 06:53 alginic acid Allergy Intermediate Rash Verified 08/07/20 06:53 [From MediHoney (onesimo alginate-honey)] amikacin Allergy Intermediate Hives Verified 08/07/20 06:53 cefazolin Allergy Intermediate Hives Verified 08/07/20 06:53 clindamycin Allergy Intermediate Rash Verified 08/07/20 06:53 honey Allergy Intermediate Rash Verified 08/07/20 06:53 [From MediHoney (onesimo alginate-honey)] latex Allergy Intermediate Hives Verified 08/07/20 06:53 NSAIDS (Non-Steroidal Allergy Intermediate Rash Verified 08/07/20 06:53 Anti-Inflamma penicillamine Allergy Intermediate Blisters Verified 08/07/20 06:53 [From Cuprimine] vancomycin Allergy Intermediate Rash Verified 08/07/20 06:53 warfarin [From Coumadin] Allergy Intermediate Itching Verified 08/07/20 06:53 cyclobenzaprine Allergy Mild Cannot Verified 08/07/20 06:53 Remember hydroxychloroquine Allergy Mild Other Verified 08/07/20 06:53 [From Plaquenil] daptomycin AdvReac Intermediate Muscle Verified 08/07/20 06:53 Weakness green pepper AdvReac Intermediate Diarrhea Verified 08/07/20 06:53 lactose AdvReac Intermediate Diarrhea Verified 08/07/20 06:53 pentoxifylline [From Trental] AdvReac Mild Nausea and Verified 08/07/20 06:53 Vomiting sulfamethoxazole AdvReac Mild Nausea and Verified 08/07/20 06:53 [From ] Vomiting trimethoprim [From ] AdvReac Mild Nausea and Verified 08/07/20 06:53 Vomiting Home Meds: Home Meds Cholecalciferol (Vitamin D3) [Vitamin D3] 2,000 unit PO DAILY 05/13/18 [History] Lutein 40 mg PO DAILY 05/13/18 [History] Methenamine Hippurate [Hiprex] 1 gm PO BID 05/13/18 [History] traZODone HCl [Trazodone HCl] 50 mg PO BEDTIME 05/13/18 [History] Ascorbic Acid 500 mg PO TID 12/06/19 [History] Calcium Carbonate 500 mg PO Q4HR PRN 12/06/19 [History] Calcium Carbonate/Vitamin D3 [Calcium Carbonate/Vitamin D 600 MG-200 Unit] 1 tab PO BID 12/06/19 [History] Cetirizine [ZyrTEC] 10 mg PO DAILY 12/06/19 [History] Cranberry Fruit Concentrate [Cranberry] 450 mg PO BID 12/06/19 [History] Ferrous Sulfate 325 mg PO DAILY 12/06/19 [History] Folic Acid 1 mg PO DAILY 12/06/19 [History] Multivitamin [Multivitamins] 1 tab PO DAILY 12/06/19 [History] Ondansetron [Zofran ODT] 1 tab PO Q6HR PRN 12/06/19 [History] Pantoprazole Sodium [Protonix] 40 mg PO DAILY 12/06/19 [History] diphenhydrAMINE [Benadryl] 25 mg PO Q4HR PRN 12/06/19 [History] hydrOXYzine HCL [Hydroxyzine HCl] 10 mg PO TID 12/06/19 [History] Albuterol Sulfate [Proair Respiclick] 2 puff INH Q4H PRN 01/19/20 [History] DULoxetine [Cymbalta] 60 mg PO DAILY 01/19/20 [History] Fludrocortisone [Florinef] 0.1 mg PO DAILY 01/19/20 [History] Nystatin [Nyamyc] 1 applic TOP BID PRN 01/19/20 [History] Alfuzosin HCl [Alfuzosin HCl ER] 10 mg PO DAILY 08/07/20 [History] Furosemide 20 mg PO DAILY 08/07/20 [History] Levalbuterol Tartrate [Xopenex HFA] 45 mg IH Q2H 08/07/20 [History] Magnesium Gluconate 250 mg PO BID 08/07/20 [History] Morphine [MS Contin] 30 mg PO Q24H 08/07/20 [History] Potassium Chloride [Klor-Con 10] 10 meq PO DAILY 08/07/20 [History] Rifampin [Rifadin] 600 mg PO DAILY 08/07/20 [History] Zoledronic Acid/Mannitol-Water [Zoledronic Acid 5 mg/100 ml] 5 mg IV ASDIRECTED 08/07/20 [History] oxyCODONE HCl/Acetaminophen [Endocet 7.5-325 mg Tablet] 2 each PO Q8H PRN 08/07/20 [History] predniSONE [Prednisone] 20 mg PO ASDIRECTED 08/07/20 [History] Past Medical History HEENT History: Reports: Other (See Below) Other HEENT History: wears glasses Cardiovascular History: Reports: Hypertension, PVD Other Cardiovascular History: pt states no hx of HTN Gastrointestinal History: Reports: GERD Genitourinary History: Reports: Renal Disease, Urinary Incontinence, UTI, R ecurrent Musculoskeletal History: Reports: Fibromyalgia, RA, Other (See Below) Other Musculoskeletal History: broke both of knees, broke four ribs, 3 hip replacements, broke pelvic bone, broke left hand, broke collar bone, bunyonectomy bilateral feet Neurological History: Reports: Neuropathy, Peripheral, Other (See Below) Other Neuro History: restless leg syndrom Endocrine/Metabolic History: Reports: Diabetes, Type II Hematologic History: Reports: Folic Acid Dermatologic History: Reports: Other (See Below) Other Dermatologic History: ulcers to bilateral legs - Infectious Disease History Infectious Disease History: Reports: Chicken Pox, Measles, MRSA, Other (See Below) Other Infectious Disease History: pt states hx of mrsa in feet in 1985 and 2014 - Past Surgical History GI Surgical History: Reports: None Social & Family History - Family History Family Medical History: No Pertinent Family History - Tobacco Use Tobacco Use Status *Q: Former Tobacco User Used Tobacco, but Quit: Yes Month/Year Tobacco Last Used: 2009 - Caffeine Use Caffeine Use: Reports: Coffee, Soda, Tea - Recreational Drug Use Recreational Drug Use: No Review of Systems - Review of Systems Review Of Systems: See Below Constitutional: Reports: No Symptoms Eyes: Reports: No Symptoms Ears: Reports: No Symptoms Nose: Reports: No Symptoms Mouth/Throat: Reports: No Symptoms Respiratory: Reports: No Symptoms Cardiovascular: Reports: No Symptoms GI/Abdominal: Reports: No Symptoms Genitourinary: Reports: No Symptoms Musculoskeletal: Reports: Other (She has rheumatoid arthritis and pain associated with this) Skin: Reports: Other (He has severe stasis dermatitis in the lower extremities with significant skin loss requiring regular dressing changes and antibiotic therapy) Neurological: Reports: No Symptoms Psychiatric: Reports: No Symptoms ED EXAM, GENERAL - Physical Exam Exam: See Below Exam Limited By: No Limitations General Appearance: Alert, Other (Obesity) Head: Atraumatic, Normocephalic Neck: Normal Inspection, Supple, Non-Tender, Full Range of Motion Respiratory/Chest: No Respiratory Distress, Lungs Clear, Normal Breath Sounds Cardiovascular: Regular Rate, Rhythm, No Murmur, Other (Significant left upper extremity lymphedema no other significant edema noted) GI/Abdominal: Normal Bowel Sounds, Soft, Non-Tender, Other (Obese) Back Exam: Normal Inspection. No: CVA Tenderness (L), CVA Tenderness (R) Extremities: No Pedal Edema, Other (Significant skin loss secondary to her chronic venous stasis) #1 Interpretation EKG Date: 08/07/20 Rhythm: Other (Sinus tachycardia) Gordon: Normal P-Wave: Present QRS: Normal ST-T: Normal QT: Normal Comparison: No Change (No significant change from January 2 of this year other than the rate is faster on today's tracing) Course - Vital Signs Last Recorded V/S: Last Vital Signs Temp 36.2 C 08/06/20 23:01 Pulse 121 H 08/06/20 23:01 Resp 20 08/06/20 23:01 BP 117/82 08/06/20 23:01 Pulse Ox 95 08/06/20 23:01 - Orders/Labs/Meds Labs: Laboratory Tests 08/07/20 08/07/20 08/07/20 Range/Units 01:45 01:45 01:45 WBC 11.66 H (3.98-10.04) K/mm3 RBC 4.17 (3.98-5.22) M/mm3 Hgb 12.1 D (11.2-15.7) gm/dl Hct 38.7 (34.1-44.9) % MCV 92.8 D (79.4-94.8) fl MCH 29.0 (25.6-32.2) pg MCHC 31.3 L (32.2-35.5) g/dl RDW Std Deviation 46.7 H (36.4-46.3) fL Plt Count 282 D (182-369) K/mm3 MPV 8.7 L (9.4-12.3) fl Neut % (Auto) 61.0 (34.0-71.1) % Lymph % (Auto) 30.4 (19.3-51.7) % [place] % (Auto) 6.9 (4.7-12.5) % Eos % (Auto) 1.1 (0.7-5.8) Baso % (Auto) 0.3 (0.1-1.2) % Neut # (Auto) 7.10 H (1.56-6.13) K/mm3 Lymph # (Auto) 3.55 (1.18-3.74) K/mm3 [place] # (Auto) 0.80 H (0.24-0.36) K/mm3 Eos # (Auto) 0.13 (0.04-0.36) K/mm3 Baso # (Auto) 0.04 (0.01-0.08) K/mm3 Manual Slide Review Normal smear PT 11.4 (9.7-12.0) SECONDS INR 1.07 APTT 25.9 (21.7-31.4) SECONDS Sodium 138 (136-145) mEq/L Potassium 4.1 (3.5-5.1) mEq/L Chloride 103 (98-107) mEq/L Carbon Dioxide 25 (21-32) mEq/L Anion Gap 14.1 (5-15) BUN 18 (7-18) mg/dL Creatinine 1.1 H (0.55-1.02) mg/dL Est Cr Clr Drug Dosing 45.88 mL/min Estimated GFR (MDRD) 50 (>60) mL/min BUN/Creatinine Ratio 16.4 (14-18) Glucose 102 (80-115) mg/dL Calcium 8.6 D (8.5-10.1) mg/dL Magnesium (1.8-2.4) mg/dl Total Bilirubin 0.5 (0.2-1.0) mg/dL AST 20 (15-37) U/L ALT 14 (14-59) U/L Alkaline Phosphatase 93 (46-116) U/L Total Protein 6.8 (6.4-8.2) g/dl Albumin 1.8 L (3.4-5.0) g/dl Globulin 5.0 gm/dL Albumin/Globulin Ratio 0.4 L (1-2) 08/07/20 Range/Units 01:45 WBC (3.98-10.04) K/mm3 RBC (3.98-5.22) M/mm3 Hgb (11.2-15.7) gm/dl Hct (34.1-44.9) % MCV (79.4-94.8) fl MCH (25.6-32.2) pg MCHC (32.2-35.5) g/dl RDW Std Deviation (36.4-46.3) fL Plt Count (182-369) K/mm3 MPV (9.4-12.3) fl Neut % (Auto) (34.0-71.1) % Lymph % (Auto) (19.3-51.7) % [place] % (Auto) (4.7-12.5) % Eos % (Auto) (0.7-5.8) Baso % (Auto) (0.1-1.2) % Neut # (Auto) (1.56-6.13) K/mm3 Lymph # (Auto) (1.18-3.74) K/mm3 [place] # (Auto) (0.24-0.36) K/mm3 Eos # (Auto) (0.04-0.36) K/mm3 Baso # (Auto) (0.01-0.08) K/mm3 Manual Slide Review PT (9.7-12.0) SECONDS INR APTT (21.7-31.4) SECONDS Sodium (136-145) mEq/L Potassium (3.5-5.1) mEq/L Chloride (98-107) mEq/L Carbon Dioxide (21-32) mEq/L Anion Gap (5-15) BUN (7-18) mg/dL Creatinine (0.55-1.02) mg/dL Est Cr Clr Drug Dosing mL/min Estimated GFR (MDRD) (>60) mL/min BUN/Creatinine Ratio (14-18) Glucose (80-115) mg/dL Calcium (8.5-10.1) mg/dL Magnesium 1.5 L (1.8-2.4) mg/dl Total Bilirubin (0.2-1.0) mg/dL AST (15-37) U/L ALT (14-59) U/L Alkaline Phosphatase (46-116) U/L Total Protein (6.4-8.2) g/dl Albumin (3.4-5.0) g/dl Globulin gm/dL Albumin/Globulin Ratio (1-2) Meds: Medications Discontinued Medications Generic Name Dose Route Start Last Admin Trade Name Gavinoq PRN Reason Stop Dose Admin Heparin Sodium (Porcine) 500 units 08/07/20 05:51 08/07/20 06:32 Heparin Lock Flush 100 Units/Ml FLUSH 08/07/20 05:52 500 units ASDIRECTED ONE Administration Magnesium Sulfate 2 gm in 50 mls @ 25 mls/hr 08/07/20 03:15 08/07/20 03:55 Magnesium Sulfate In Water Premix IV 25 mls/hr Q1H CARLO Administration Morphine Sulfate 30 mg 08/07/20 01:18 08/07/20 01:27 Ms Contin PO 08/07/20 01:19 30 mg ONETIME ONE Administration Oxycodone/Acetaminophen 2 tab 08/07/20 02:00 08/07/20 02:05 Percocet 325-5 Mg PO 08/07/20 02:01 2 tab ONETIME ONE Administration - Re-Assessments/Exams Free Text/Narrative Re-Assessment/Exam: 08/07/20 06:05 Patient's magnesium was low this was supplemented patient has lymphedema in her left arm this is secondary lymphedema most likely due to in part to her obesity her chronic venous insufficiency and her underlying rheumatoid arthritis. She has had problems with this in the past. The patient has significant leg breakdown secondary to chronic venous insufficiency. This is an chronic issue and not what brought her in. At this time the patient is doing better her pulse rate was initially quite high at rest at about 120 this is come down to about 100 after receiving a couple grams of magnesium. Patient will be discharge is recommended that she start oral magnesium supplements. Departure - Departure Time of Disposition: :06 Disposition: Home, Self-Care 01 Clinical Impression: Lymphedema of left arm, Chronic venous insufficiency, Hypomagnesemia Rheumatoid arthritis Qualifiers: Rheumatoid arthritis location: multiple sites Rheumatoid factor presence: unspecified presence Qualified Code(s): M06.9 - Rheumatoid arthritis, unspecified - Discharge Information Instructions: Arthritis, [id number], Hypomagnesemia, Lymphedema, Chronic Venous Insufficiency Referrals: Phyllis Montalvo NP [Primary Care Provider] - Forms: ED Department Discharge Additional Instructions: Return to the emergency room with any questions problems or worsening symptoms. Continue to use the Ray wrap gently wrap it on your left arm starting at the wrist and slowly working up it does not have to be too tight. Start magnesium supplementation. director supply chain some magnesium oxide 400 mg tablets take 1 daily. Follow-up with your regular healthcare provider the first part of this next week for recheck. Sepsis Event Note (ED) - Evaluation Sepsis Screening Result: No Definite Risk
[2020-08-07] MEDS ORDERED: Morphine 15 MG Tab.ER PO ONE (01:18)
[2020-08-07] MEDS ORDERED: Acetaminophen/oxyCODONE 325-5 MG Tab PO ONE (02:00)
[2020-08-07] MEDS ORDERED: Magnesium Sulfate/Water 2 GM/50 ML BAG IV SCH (03:15)
--- NOTE | 2020-08-07 09:22 | CR ---
PROCEDURE INFORMATION: Exam: XR Chest, 1 View Exam date and time: 08/07/2020 1:26 AM Age: 65 years old Clinical indication: Other: Left arm swelling TECHNIQUE: Imaging protocol: XR of the chest Views: 1 view. COMPARISON: CR Chest 1V Frontal 01/19/2020 1:32 PM FINDINGS: Lungs: Unremarkable. No consolidation. Pleural space: Unremarkable. No pleural effusion. No pneumothorax. Heart/Mediastinum: Unremarkable. No cardiomegaly. Bones/joints: Unremarkable. IMPRESSION: No acute findings. There is a left chest MediPort catheter in good position Thank you for allowing us to participate in the care of your patient. Dictated and Authenticated by: Edward Yang MD 08/07/2020 3:10 AM Central Time ([place] & [place]) ENRIQUE
== END 2020-08-07 08:36 | disposition home or self-care (01) ==
LOC: JD.ED 22:41 → SUPCPDRO 22:41 → JD.ED 08-07 08:36
DX: I87.2 Venous insufficiency (chronic) (peripheral) (principal); I89.0 Lymphedema, not elsewhere classified; E83.42 Hypomagnesemia; I10 Essential (primary) hypertension; K21.9 Gastro-esophageal reflux disease without esophagitis; E11.42 Type 2 diabetes mellitus with diabetic polyneuropathy; E11.51 Type 2 diabetes mellitus with diabetic peripheral angiopathy without gangrene; M06.9 Rheumatoid arthritis, unspecified; Z91.048 Other nonmedicinal substance allergy status; Z88.8 Allergy status to other drugs, medicaments and biological substances; Z88.1 Allergy status to other antibiotic agents; Z91.030 Bee allergy status; Z91.040 Latex allergy status; Z88.0 Allergy status to penicillin; Z91.018 Allergy to other foods; Z88.2 Allergy status to sulfonamides; Z79.899 Other long term (current) drug therapy
CPT/HCPCS: 36415; 71045; 80053; 83735; 85025; 85610; 85730; 93005; 96365; 96366; 99284; A9270; J1642; J3475; 93010